=== PATIENT | male | born 1980 | race Caucasian/White ===

== ENCOUNTER 2019-06-24 12:24 | Emergency (ER) | payer MEDICAID, SELFPAY ==
[2019-06-24 12:26] VITALS: BP 125/75; PULSE 84; RESP 20; TEMP 36.6; O2SAT 97; BMI 29.5
--- NOTE | 2019-06-24 13:01 | HMH.EDEXTP ---
ED Disposition Clinical Impression: Carpal tunnel syndrome, bilateral Disposition: Home, Self-Care Condition on Discharge: Good Prescriptions: Tizanidine HCl [Zanaflex 4mg tablet] 4 mg PO TID 20 Days #60 tab Transmission Status: Pending to [facility] Referrals: Provider,Referral, [Primary Care Provider] - - Critical Care Critical Care Time: No Attestation: On 06/24/19, the high probability of a clinically significant, sudden or life threatening deterioration of the following system(s) required my full and direct attention, intervention and personal management. The time I documented below is in addition to time spent performing reported procedures but includes the following listed in this critical care notation. Medical Decision Making - Medical Records Medical records reviewed: Yes: I reviewed the patient's medical records. - Mekhi Inquiry Pt receiving controlled substance: No Vital Signs: 06/24/19 12:26 Temperature 97.8 F Temperature Source Oral Pulse Rate [Right] 84 Respiratory Rate 20 Blood Pressure [Right Arm] 125/75 Blood Pressure Mean [Right Arm] 91 02 Sat by Pulse Oximetry 97 - Lab Data Lab results reviewed: Yes: I reviewed the patient's lab results. Orders (Tests/Meds): ED MEDICATIONS Discontinued Medications Generic Name Dose Route Start Last Admin Trade Name Freq PRN Reason Stop Dose Admin Lidocaine HCl 20 ml 06/24/19 12:53 Lidocaine 1% 20ml Mdv IM 06/24/19 12:54 ONCE ONE Triamcinolone Acetonide 80 mg 06/24/19 12:53 Kenalog 40mg/Ml Vial IM 06/24/19 12:54 ONCE ONE Extremity Problem HPI - General Chief complaint: Extremity Problem,Nontraumatic Stated complaint: pain from elbows to fingers Time Seen by Provider: 06/24/19 13:01 Mode of Arrival: Ambulatory Source of Information: Patient Limitations: No Limitations Description of Symptoms (Recalled from ER Triage Doc. by RN): C/O numbness, tingling and pain in both arms starting from his elbows to his fingers for 2 days. - History of Present Illness HPI Narrative: 38-year-old male presents the ED complaining of bilateral hand pain. He states that at night its its worse and he has numbness and tingling in his thumb first finger and third finger. He states this is been going on for 3 days but does state that it is happened in the past over the last couple years. 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 Presently he is in no pain but he just feels constant numbness in both hands. - Related Data Previous Rx's Medication Instructions Recorded Brompheniramine/Pseudoephed/Dm 10 ml PO QID PRN #240 ml 10/05/17 [Bromfed DM Cough Syrup 5mL] Tizanidine HCl [Zanaflex 4mg 4 mg PO TID 20 Days #60 tab 06/24/19 tablet] Allergies Allergy/AdvReac Type Severity Reaction Status Date / Time cefaclor [From CECLOR] Allergy Unknown Verified 10/05/17 19:03 Penicillins [PENICILLINS] Allergy Unknown Verified 10/05/17 19:03 sumatriptan [From IMITREX] Allergy Unknown Verified 10/05/17 19:03 [facility] History - Hepatitis A Screen Drug use history?: No High risk sexual behaviors?: No History of sexually transmitted infection?: No Currently employed?: No Childcare worker?: No Do you have indoor plumbing?: Yes Do you have electricity?: Yes Attestation statement:: This patient has been screened for Hepatitis A risk factors. I have reviewed the patient's past medical history: Yes Medical History: Denies:: Cancer, Diabetes Mellitus Type 1, Diabetes Mellitus Type 2, Hypertension, MRSA Other Surgeries: Yes: Hernia Repair Amputation: No Fractures: No - Social History Smoking Status: Current every day smoker Tobacco Type: cigarettes # Packs/Day (cigarettes): 1 Alcohol Intake: never Occupational Status: unemployed ROS Obtained: Yes All systems reviewed & no additional complaints - Constitutional Constitutional: Reports system reviewed and no additional compl
[2019-06-24 13:33] VITALS: BP 125/75; PULSE 84; RESP 20; TEMP 36.6; O2SAT 97
== END 2019-06-24 13:34 | disposition home or self-care (01) ==
PROVIDERS: Emergency Provider Family Medicine
DX: G56.03 Carpal tunnel syndrome, bilateral upper limbs (principal); Z88.0 Allergy status to penicillin; F17.210 Nicotine dependence, cigarettes, uncomplicated
CPT/HCPCS: 64450; 96372; 99281

== ENCOUNTER 2019-11-30 09:53 | Emergency (ER) | payer MEDICAID, SELFPAY ==
[2019-11-30 10:07] VITALS: BP 147/91; PULSE 87; RESP 19; TEMP 36.9; O2SAT 98; BMI 28.2
--- NOTE | 2019-11-30 10:22 | HMH.EDUTC ---
[facility] [place] Clinical Impression: Sinusitis Qualifiers: Sinusitis location: unspecified location Chronicity: unspecified Qualified Code(s): J32.9 - Chronic sinusitis, unspecified Disposition: Home, Self-Care Condition on Discharge: Good Instructions: Sinusitis, Sinus Headache, DI for Sinusitis Additional Instructions: *Monitor Temp, Over the counter Motrin or Tylenol as directed/as needed Tylenol every 4 hours and Motrin every 6 hours (as long as your family doctor has told you that you can take it) for fever or pain. and straight to ER if unable to lower temp less than 101.0 after medication given *Warm salt water gargles may help to soothe the throat *Throat Lozenges *Warm fluids like tea with honey may help to soothe the throat *Sleep elevated *Humidifier/Vaporizer *Flonase 2 sprays in each nostril daily but be aware that it may take 2-3 days before you notice improvement Follow up IMMEDIATELY for new or worsening symptoms or no Noticeable improvement over the next 48-72 hours. 911 for difficulty breathing or swallowing You was tested for today for COVID19 your test result should be back later this evening, you may call back later this evening to see if your test results are back and the result You was given a handout with instructions for Self Quarantine and Self isolation for while you wait on test results and what to do if they are positive Prescriptions: Fluticasone Propionate [Flonase 50mcg nasal spray 16gm] 1 spr NS DAILY #1 bottle Transmission Status: Pending to [facility] methylPREDNISolone [Medrol 4mg tab] 4 mg PO DIRECTED #21 tab Transmission Status: Pending to [facility] Azithromycin [Z-Og 250mg Tab] 250 mg PO DIRECTED #6 tab Transmission Status: Pending to [facility] Referrals: Sofie Diaz [Primary Care Provider] - Forms: Work/School Release Time of Disposition: 10:28 Medical Decision Making - Mekhi Inquiry Pt receiving controlled substance: No Mekhi was queried for this patient: No Vital Signs: 11/30/19 10:07 Temperature 98.4 F Temperature Source Oral Pulse Rate [Radial] 87 Respiratory Rate 19 Blood Pressure [Right Arm] 147/91 H Blood Pressure Mean [Right Arm] 109 Blood Pressure Source [Right Arm] Automatic Cuff Blood Pressure Position [Right Arm] Sitting 02 Sat by Pulse Oximetry 98 Oxygen Delivery Method Room Air [facility] [place] - General Stated complaint: head stopped up ,cough,headache,weakness Time Seen by Provider: 11/30/19 10:22 Mode of Arrival: Ambulatory Source of Information: Patient Limitations: No Limitations Description of Symptoms (Recalled from Triage Doc. by RN): cough, congestion, headache x 2 days HEENT Symptoms (Recalled from RN notes): Yes Resp Symptoms (Recalled from RN notes): No Skin Symptoms (Recalled from RN notes): No MS Symptoms (Recalled from RN notes): No Functional Status (Recalled from RN notes): wnl - History of Present Illness Provider Complaint: Patient states that he has been having sinus pain and pressure for over a week States that he feels the pressure behind his eyes and in his teeth States that it has continued to get worse over the last couple of days and now his nose is completely stopped up - Related Data Previous Rx's Medication Instructions Recorded Brompheniramine/Pseudoephed/Dm 10 ml PO QID PRN #240 ml 10/05/17 [Bromfed DM Cough Syrup 5mL] Tizanidine HCl [Zanaflex 4mg 4 mg PO TID 20 Days #60 tab 06/24/19 tablet] Azithromycin [Z-Og 250mg Tab] 250 mg PO DIRECTED #6 tab 11/30/19 Fluticasone Propionate [Flonase 1 spr NS DAILY #1 bottle 11/30/19 50mcg nasal spray 16gm] methylPREDNISolone [Medrol 4mg 4 mg PO DIRECTED #21 tab 11/30/19 tab] Allergies Allergy/AdvReac Type Severity Reaction Status Date / Time cefaclor [From CECLOR] Allergy Unknown Verified 10/05/17 19:03 Penicillins [PENICILLINS] Allergy Unknown Verified 10/05/17 19:03 sumatriptan [From IMITREX]
[2019-11-30 10:45] VITALS: BP 147/91; PULSE 87; RESP 19; TEMP 36.9; O2SAT 98
== END 2019-11-30 10:46 | disposition home or self-care (01) ==
PROVIDERS: Emergency Provider Nurse Practitioner; PCP Family Medicine
DX: J32.9 Chronic sinusitis, unspecified (principal); Z20.828 Contact with and (suspected) exposure to other viral communicable diseases; F17.210 Nicotine dependence, cigarettes, uncomplicated; Z88.0 Allergy status to penicillin
CPT/HCPCS: 99201; U0003

== ENCOUNTER 2020-08-10 22:22 | Emergency (ER) | payer SELFPAY ==
[2020-08-10 22:36] VITALS: BP 154/71; PULSE 85; RESP 17; TEMP 36.8; O2SAT 98; BMI 25.8
--- NOTE | 2020-08-10 22:52 | HMH.EDMCLR ---
ED Disposition Clinical Impression: Medical clearance for incarceration Disposition: Home, Self-Care Condition on Discharge: Good Instructions: DI for Alcohol Use Disorder Additional Instructions: see pcp for follow up Referrals: Sofie Diaz [Primary Care Provider] - - Critical Care Critical Care Time: No Attestation: On 08/10/20, the high probability of a clinically significant, sudden or life threatening deterioration of the following system(s) required my full and direct attention, intervention and personal management. The time I documented below is in addition to time spent performing reported procedures but includes the following listed in this critical care notation. Medical Decision Making - Medical Records Medical records reviewed: Yes: I reviewed the patient's medical records. - Mekhi Inquiry Pt receiving controlled substance: No Vital Signs: 08/10/20 22:36 Temperature 98.2 F Temperature Source Oral Pulse Rate [Right Brachial] 85 Respiratory Rate 17 Blood Pressure [Right Arm] 154/71 H Blood Pressure Mean [Right Arm] 98 Blood Pressure Source [Right Arm] Automatic Cuff Blood Pressure Position [Right Arm] Sitting 02 Sat by Pulse Oximetry 98 Oxygen Delivery Method Room Air - Lab Data Lab results reviewed: Yes: I reviewed the patient's lab results. Medical Clearance HPI - General Chief complaint: Medical Clearance Stated complaint: medical clearance Time Seen by Provider: 08/10/20 22:52 Mode of Arrival: Family Vehicle Source of Information: Patient, Medical Record Description of Symptoms (Recalled from ER Triage Doc. by RN): PATIENT PRESENTED BY PD FOR MEDICAL CLEARANCE FOR DUI. REQUESTED LEGAL LAB DRAW. - History of Present Illness HPI Narrative: pt with possible intox brought in by lyudmila camacho MD complaint: medical clearance requested Onset (ago): hour(s) Reason for Medical Clearance: intoxication Place: other (outdoors ) Alleged Intoxication: Yes Compliant with Home Medications: No Traumatic Symptoms: denies traumatic injury Associated Symptoms: denies other symptoms Treatments Prior to Arrival: none Home medications: Previous Rx's Medication Instructions Recorded Brompheniramine/Pseudoephed/Dm 10 ml PO QID PRN #240 ml 10/05/17 [Bromfed DM Cough Syrup 5mL] Tizanidine HCl [Zanaflex 4mg 4 mg PO TID 20 Days #60 tab 06/24/19 tablet] Azithromycin [Z-Og 250mg Tab] 250 mg PO DIRECTED #6 tab 11/30/19 Fluticasone Propionate [Flonase 1 spr NS DAILY #1 bottle 11/30/19 50mcg nasal spray 16gm] methylPREDNISolone [Medrol 4mg 4 mg PO DIRECTED #21 tab 11/30/19 tab] Allergies/Adverse reactions: Allergies Allergy/AdvReac Type Severity Reaction Status Date / Time cefaclor [From CECLOR] Allergy Unknown Verified 10/05/17 19:03 Penicillins [PENICILLINS] Allergy Unknown Verified 10/05/17 19:03 sumatriptan [From IMITREX] Allergy Unknown Verified 10/05/17 19:03 [facility] History - Hepatitis A Screen Drug use history?: No High risk sexual behaviors?: No History of sexually transmitted infection?: No Currently employed?: No Childcare worker?: No Do you have indoor plumbing?: Yes Do you have electricity?: Yes Attestation statement:: This patient has been screened for Hepatitis A risk factors. I have reviewed the patient's past medical history: Yes Medical History: Denies:: Cancer, Diabetes Mellitus Type 1, Diabetes Mellitus Type 2, Hypertension, MRSA Other Surgeries: Yes: Hernia Repair Amputation: No Fractures: No - Social History Smoking Status: Current some day smoker Tobacco Type: cigarettes # Packs/Day (cigarettes): 1 Alcohol Intake: never Occupational Status: other ROS Obtained: Yes All systems reviewed & no additional complaints - Constitutional Constitutional: Denies fever(s) - Eyes Eyes: Denies change in vision - ENT Ears, Nose, Mouth, and Throat: Denies sore throat - Cardiovascular Cardiovascular: Denies chest pain - Respirat
[2020-08-10 23:12] VITALS: BP 124/70; PULSE 73; RESP 17; TEMP 36.8; O2SAT 98
== END 2020-08-10 23:16 | disposition home or self-care (01) ==
PROVIDERS: Emergency Provider Emergency Medicine; PCP Family Medicine
DX: F10.10 Alcohol abuse, uncomplicated (principal)
CPT/HCPCS: 99281; 99282

== ENCOUNTER 2024-08-23 16:09 | Emergency (ER) | payer OTHER, SELFPAY ==
--- OUTSIDE RECORDS SUMMARY | 2024-06-27 13:45 | XMS_ITS | Encounter Summary ---
Author Organization [facility] Address [address] [place] [address] Care Team Providers Care Liturgical Music Director Name Role Phone Kyra Bolton Primary Care Provider [phone] Reason for Visit * Reason Comments Abdominal Pain Nausea/Vomiting/Diarrhea Encounter Details Date Type Department Care Team (Late st Contact Info) Description 06/27/2024 1:45 PM EDT - 06/27/2024 3:51 PM EDT Emergency [facility] Emergency Department [address] [place] [id number] Eliazar Lowery, [employer] P[employer] HELPER [address] [place] [address] [place] [address] Gastroenteritis (Primary Dx); Cannabis hyperemesis syndrome concurrent with and due to cannabis abuse Discharge Disposition: Home or Self Care Social History Tobacco Use Types Packs/Day Years Used Date Smoking Tobacco: Every Day Cigarettes 1 10 Smokeless Tobacco: Never Comments:VAPE Alcohol Use Standard Drinks/Week Comments Never 0 (1 standard drink = 0.6 oz pur e alcohol) Hunger Vital Sign Answer Date Recorded Within the past 12 months, y ou worried that your food would run out before you got the money to buy more. Never true 06/26/19 24 Within the past 12 months, t he food you bought just didn't last and you didn't have money to get more. Never true 06/26/2023 PRAPARE - Transportation Answer Date Re corded In the past 12 months, has l ack of transportation kept you from medical appointments or from getting medications? No 06/09 In the past 12 months, has l ack of transportation kept you from meetings, work, or from getting things needed for daily living? No 06/26/2023 Housing Stability Vital Sign Answer Con e Recorded In the last 12 months, was t here a time when you were not able to pay the mortgage or rent on time? No 06/26/2023 In the last 12 months, how many places have you lived? 1 06/26/2023 In the last 12 months, was t here a time when you did not have a steady place to sleep or slept in a detention (including now)? No 06/26/2023 Sex and Gender Information Value Date Recorded Sex Assigned at Not on file Legal Sex Male 11:02 AM EDT Gender Identity Not on file Sexual Orientation Not on file documented as of this encounter Last Filed Vital Signs Vital Sign Reading Time Taken Comments Blood Pressure 146/103 06/27/2024 1:41 PM EDT Pulse 88 06/27/2024 1:41 PM EDT Temperature 36.6 C (97.8 F) 06/27/2024 1:41 PM EDT Respiratory Rate 24 06/27/2024 1:41 PM EDT Oxygen Saturation 95% 06/27/2024 1:41 PM EDT Inhaled Oxygen Concentration - - Weight 88.5 kg (195 lb) 06/27/2024 1:41 PM EDT Height 175.3 cm (5' 9 ) 06/27/2024 1:41 PM EDT Body Mass Index 28.8 06/27/2024 1:41 PM EDT documented in this encounter Functional Status * Are You Deaf or do You Have Serious Difficulty Hearing? Answer Date of Assessment Author No 06/22/2023 10:24 PM EDT Mita Cho RN * Patient's Vision Adequate to Safely Complete Daily Activities Answer Date of Assessment Author Yes 06/22/2023 10:24 PM EDT Mita Cho RN * Do You Have Serious Difficulty Walking or Climbing Stairs? Answer Date of Assessment Author No 06/22/2023 10:24 PM EDT Mita Cho RN * Do You Have Difficulty Dressing or Bathing? Answer Date of Assessment Author No 06/22/2023 10:24 PM EDT Mita Cho RN * Because of a Physical, Mental, or Emotional Condition, Do You Have Serious Difficulty Concentrating, Remembering or Making a Decision? Answer Date of Assessment Author No 06/22/2023 10:24 PM EDT Mita Cho RN documented as of this encounter Mental Status * Because of a Physical, Mental or Emotional Problem, Do You Have Difficulty Doing Errands Alone Suchas Visiting a Doctor's Office or Shopping? Answer Entry Date Author No 06/22/2023 10:24 PM EDT Mita Cho RN documented in this encounter Discharge Instructions * Discharge Instructions* Eliazar Lowery APRN - 06/27/2024 3:41 PM EDT Discharge disposition: this patient is discharged home. All questions were answered. For any problems stemming from this visit the patient can return for further advice and counseling. Patient can follow up with primary care provider as needed. Recommend that you stop using marijuana in all forms and quantities. Take Bentyl as prescribed, Zofran as previously prescribed on 06/13/2024 documented in this encounter Medications at Time of Discharge albuterol HFA 108 (90 Base) MCG/ACT inhaler Inhale 2 puffs into the lungs every 6 (six) hours as needed for Wheezing. busPIRone (BUSPAR) 15 MG tablet Take 15 mg by mouth 3 (three) times daily. CBD OIL Take by mouth daily. dicyclomine (BENTYL) 20 MG tablet Take 1 tablet by mouth every 6 (six) hours. 12 tablet 5 dicyclomine (BENTYL) 20 MG tablet Take 1 tablet by mouth every 6 (six) hours. 12 tablet 5 dicyclomine (BENTYL) 20 MG tablet Take 1 tablet by mouth every 6 (six) hours. 15 tablet 4 escitalopram (LEXAPRO) 10 MG tablet Take 20 mg by mouth daily. HYDROcodone-acetami nophen (NORCO) 5-325 MG per tablet Take 1 tablet by mouth every 6 (six) hours as needed for Pain. Max Daily Amount: 4 tablets 12 tablet 5 mirtazapine (REMERON) 15 MG tablet Take 15 mg by mouth nightly. 1 nitrofurantoin, macrocrystal-monohy drate, (MACROBID) 100 MG capsule Take 1 capsule by mouth 2 (two) times daily. 10 capsule 06/25/2023 12:12 PM EDT 4 ondansetron (ZOFRAN-ODT) 4 MG disintegrating tablet Take 1 tablet by mouth every 8 (eight) hours as needed for Nausea. 20 tablet 5 phenazopyridine (PYRIDIUM) 200 MG tablet Take 1 tablet by mouth 3 (three) times daily as needed for Pain. 21 tablet 1 06/25/2023 12:12 PM EDT 4 polyethylene glycol (GLYCOLAX) 17 GM/SCOOP powder Mix 17 grams (one capful) in 4 ounces of liquid and take by mouth daily. 850 g 3 06/25/2023 12:12 PM EDT 4 promethazine (PHENERGAN) 12.[address] 1 suppository rectally every 6 (six) hours as needed for Nausea. 12 suppository 5 traZODone (DESYREL) 50 MG tablet Take 50 mg by mouth daily. 4 UNABLE TO FIND Take by mouth daily Med Name: DELTA 8 OIL FROM [employer] PER PATIENT . documented as of this encounter ED Notes * Curly Garcia MD - 06/27/2024 2:36 PM EDT History Chief Complaint Patient presents with Abdominal Pain Nausea/Vomiting/Diarrhea The patient is a 43-year-old male well-known to this department. He has been seen 6 times this yearin this department for intractable nausea vomiting and cramping. He has had upper GI scopes which showed gastritis and GI follow-up. Was here 06/13/2024 diagnosed with cannabis hyperemesis syndrome, saw PCP 06/21/2024, prescribed CBD oil and other workup was ordered including MRI. He has not filled the CBD oil and continues to use marijuana although he reports he has cut down a lot and now I onlysmoke 1 bong a day . He denies other drug use or alcohol use. Started with increase abdominal discomfort, cramping, nausea, vomiting, diarrhea for the last few days and denies any recent Befol exposure or sick contacts or antibiotics. Past Medical History: Diagnosis Date Acute medial meniscus tear LEFT KNEE PER PATIENT HEALED WITHOUT SURGERY Anxiety Depression Tear of lateral collateral ligament of knee, left, initial encounter Past Surgical History: Procedure Laterality Date INGUINAL HERNIA REPAIR Bilateral NECK MASS EXCISION Left No family history on file. Social History Socioeconomic History Marital status: Spouse name: Not on file Number of children: Not on file Years of education: Not on file Highest education level: Not on file Occupational History Not on file Tobacco Use Smoking status: Every Day Current packs/day: 1.00 Average packs/day: 1 pack/day for 10.0 years (10.0 ttl pk-yrs) Types: Cigarettes Smokeless tobacco: Never Tobacco comments: VAPE Vaping Use Vaping status: Every Day Substance and Sexual Activity Alcohol use: Never Drug use: Yes Types: Other-see comments Comment: USES HEMP OIL AND CBD FOR ANXIETY Sexual activity: Yes Other Topics Concern Not on file Social History Narrative Not on file Social Drivers of Health Financial Resource Strain: Not on file Food Insecurity: No Food Insecurity (06/26/2023) Hunger Vital Sign Worried About Running Out of Food in the Last Year: Never true Ran Out of Food in the Last Year: Never true Transportation Needs: No Transportation Needs (06/26/2023) PRAPARE - Transportation Lack of Transportation (Medical): No Lack of Transportation (Non-Medical): No Physical Activity: Not on file Stress: Not on file Social Connections: Unknown (11/17/2022) Received from [facility] Family and Community Support Lonely or Isolated: Not on file Help with Day-to-Day Activities: Not on file Intimate Partner Violence: Not At Risk (01/28/2024) Received from [facility] Abuse Screen Feels Unsafe at Home or Work/School: no Feels Threatened by Someone: no Does Anyone Try to Keep You From Having Contact with Others or Doing Things Outside Your Home?: no Physical Signs of Abuse Present: no Housing Stability: Low Risk (06/26/2023) Housing Stability Vital Sign Unable to Pay for Housing in the Last Year: No Number of Places Lived in the Last Year: 1 Unstable Housing in the Last Year: No Review of Systems All other systems reviewed and are negative. Physical Exam BP (!) 146/103 (BP Location: Left arm, Orthostatic Position: Sitting) Pulse 88 Temp 97.8 ??F (36.6 ??C) (Tympanic) Resp (!) 24 Ht 5' 9 (1.753 m) Wt 88.5 kg (195 lb) SpO2 95% BMI 28.80 kg/m?? Physical Exam Vitals and nursing note reviewed. Constitutional: General: He is not in acute distress. Appearance: Normal appearance. He is ill-appearing (Mildly) and diaphoretic (Mildly). Eyes: Extraocular Movements: Extraocular movements intact. Pupils: Pupils are equal, round, and reactive to light. Cardiovascular: Rate and Rhythm: Normal rate and regular rhythm. Pulses: Normal pulses. Heart sounds: Normal heart sounds. Abdominal: General: Abdomen is flat. Bowel sounds are normal. There is no distension. Palpations: Abdomen is soft. Tenderness: There is no abdominal tenderness. There is no guarding. Skin: General: Skin is warm. Neurological: Mental Status: He is alert. ED Course Procedures MDM Number of Diagnoses or Management Options Cannabis hyperemesis syndrome concurrent with and due to cannabis abuse Gastroenteritis Diagnosis management comments: -MDM: Based on presentation, PMX, history of present illness and exam the following differential diagnoses were considered: -DDX: Cannabis hyperemesis, colitis, diverticulitis, gastroenteritis, dehydration -PLAN: Patient is presenting with symptoms that are very consistent with his previous episodes of cannabis hyperemesis said that today he actually appears to be better than usual. Will check basic labs give droperidol, Toradol, monitor. His abdomen is grossly nontender and I do not suspect acute inflammatory infectious process at this time Amount and/or Complexity of Data Reviewed Clinical lab tests: reviewed Risk of Complications, Morbidity, and/or Mortality Presenting problems: moderate Diagnostic procedures: low Management options: low General comments: During emergency department stay it was determined that patient can be safely discharged home and followed up or treated as an outpatient. The following considerations contributed to my medical decisions: Reviewed and independently interpreted: - Patient's chief complaint and available and pertinent past medical/surgical history, past social history, medications, and allergies. - Nursing documentation. - Patient's vital signs. - All labs and diagnostics during this ED stay, if applicable - Pertinent past medical records available in [facility] and history from the patient/family. Chronic illnesses impacting care as noted in HPI were also considered, if applicable. Consideration given to social determinants of care that were relevant to patient's disposition. Shared decision making was implemented in the POC. I ordered and reviewed all medications if given. I spent 5 minutes or more at the bedside prior to discharge to update patient on all results, provide education, and explain my decision making. Questions were answered to the best of my ability. Time was allotted to answer all questions, with focus placed on follow-up after discharge and return toED precautions. Patient Progress Patient progress: improved Diagnosis None ED Course as of 06/27/24 1542 ThuJune 27, 2024 1445 Comprehensive Metabolic Panel(CMP)(!): Sodium 141 Potassium 3.9 Chloride 108(!) CO2 23 Anion Gap 10 Glucose 110(!) BUN 10 Creatinine 0.70(!) BUN/Creat Ratio 14.3 Estimated GFR (Cr) 119 Total Protein 7.5 Albumin 4.4 Globulin 3.1 Albumin/Globulin Ratio 1.4 Calcium 9.4 Bilirubin-Total 1.0 AST/SGOT 19 ALT/SGPT 25 Alkaline Phosphatase 88 [GB] 1445 .CBC w/Diff(!): WBC 18.74(!) RBC 4.89 Hemoglobin 15.4 Hematocrit 43.4 MCV 88.8 MCH 31.5 MCHC 35.5 Red Cell Distribution Width-CV 12.7 Platelet Count 330 MPV 9.4 NEUT% 90.8(!) LYM% 5.0(!) Lasalle% 3.5 EOS% 0.2 BASO% 0.1 IG% 0.4 NRBC% 0.0 Neutrophil Abs 17.02(!) Absolute Lymphocyte Count 0.93 Monocyte Absolute 0.65 EOS# 0.04 Baso# 0.02 Immature Granulocyte Abs 0.08 [GB] 1445 Individual labs/testing as independently reviewed and interpreted by myself: There is leukocytosis with left shift, this could be secondary to infectious/inflammatory process or secondary to hisintractable nausea and vomiting. CMP shows no acute dehydration or electrolyte disturbance [GB] 1537 I reexamined the patient he appears much improved. Not reporting acute abdominal pain. No longer moaning. Vital signs remained stable during his ER course and labs are grossly noncontributory except for leukocytosis which I do not believe is secondary to sepsis or significant intra-abdominal process, but rather to mobilization from protracted vomiting. Patient is safe for discharge home with nausea and cramping control and follow- up with primary careprovider. I again encouraged him to stop using marijuana in all forms and quantities and to return if he develop fevers [GB] ED Course User Index [GB] Eliazar Lowery APRN Provider Note Signed by: Eliazar Lowery APRN 06/27/24 9465 CLOTH WORKER note thoroughly reviewed and agree with diagnosis, treatment, and disposition. Curly Garcia MD 06/27/24 [id number] * Emelyn Julian RN - 06/27/2024 1:47 PM EDT Patient arrived via private vehicle from home with reports of severe abdominal pain and NVD. Pt states this has been ongoing for a month. He has had a CT and upper GI done that just showed inflammation. He states he is supposed to follow up with his GI doctor again soon for further testing but the pain and other symptoms were out of control today. Pt states last time he was in the ER he was told it could be hyperemesis from smoking pot so he states he has pretty much completely quit smoking documented in this encounter Plan of Treatment Not on file documented as of this encounter Procedures Procedure Name Priority Date/Time Associated Diagnosis Comments CBC W/DIFF STAT 06/27/2024 2:06 PM EDT COMPREHENSIVE METABOLIC PANEL (CMP) STAT 06/27/2024 2:06 PM EDT documented in this encounter Results * (ABNORMAL) Comprehensive Metabolic Panel(CMP) (06/27/2024 2:06 PM EDT) Sodium 141 136 - 145 mmol/L 06/27/2024 2:31 PM EDT [facility] Comment:Excess protein and/o r lipids can falsely decrease sodium levels (pseudo hyponatremia). Potassium 3.9 3.5 - 5.1 mmol/L 06/27/2024 2:31 PM T [facility] Comment:Falsely elevated pot assium can occur in patients with high WBC or platelet counts. Chloride 108(H) 98 - 107 mmol/L 06/27/2024 2:31 PM T [facility] Comment:Falsely elevated chl oride levels can be seen in patients taking bromide containing medications. Carbon Dioxide 23 22 - 29 mmol/L 06/27/2024 2:31 PM T [facility] Anion Gap 10 5 - 13 mmol/L 06/27/2024 2:31 PM T [facility] Comment:Calculation: Na - (C l + CO2) Glucose, Random 110(H) 71 - 99 mg/dL 06/27/2024 2:31 PM [facility] Blood Urea Nitrogen (BUN) 10 9 - 21 mg/dL 06/27/2024 2:31 PM [facility] Creatinine, Blood 0.70(L) 0.73 - 1.18 mg/dL 06/27/2024 2:31 PM [facility] BUN/Creatinine Ratio 14.3 RATIO 06/27/2024 2:31 PM [facility] Estimated GFR (Cr) 119 >60 mL/min/1.7 3m2 06/27/2024 2:31 PM [facility] Comment:eGFR calculated base d on IDMS traceable, enzymatic creatinine method using the CKD-EPI 2020 equation. Total Protein 7.5 6.4 - 8.2 g/dL 06/27/2024 2:31 PM T [facility] Albumin 4.4 3.5 - 5.2 g/dL 06/27/2024 2:31 PM [facility] Globulin 3.1 1.5 - 4.5 g/dL 06/27/2024 2:31 PM [facility] Albumin/Globulin Ratio 1.4 1.1 - 2.5 RATIO 06/27/2024 2:31 PM [facility] Calcium 9.4 8.4 - 10.2 mg/dL 06/27/2024 2:31 PM EDT [facility] Total Bilirubin 1.0 0.2 - 1.2 mg/dL 06/27/2024 2:31 PM EDT [facility] AST/SGOT 19 5 - 34 U/L 06/27/2024 2:31 PM EDT [facility] ALT/SGPT 25 0 - 55 U/L 06/27/2024 2:31 PM EDT [facility] Alkaline Phosphatase 88 40 - 150 U/L 06/27/2024 2:31 PM EDT [facility] Blood VENOUS BLOOD SPECIMEN / Unknown Venipuncture / Unknown 06/27/2024 2:06 PM EDT 06/27/2024 2:09 PM EDT us Eliazar Lowery [employer]ER HELPER LAB BLOOD ORDERABLES María ying Result Performing Organization Address City/State/[facility] Co de Phone Number [facility] [address] [phone] * (ABNORMAL) .CBC w/Diff (06/27/2024 2:06 PM EDT) White Blood Cells 18.74(H) 4.50 - 11.00 10*3/uL 06/27/2024 2:11 PM EDT [facility] Red Blood Cells 4.89 4.50 - 5.90 10*6/uL 06/27/2024 2:11 PM EDT [facility] Hemoglobin 15.4 13.5 - 17.5 g/dL 06/27/2024 2:11 PM EDT [facility] Hematocrit 43.4 41.0 - 53.0 % 06/27/2024 2:11 PM EDT [facility] Mean Corpuscular Volume 88.8 80.0 - 100.0 fL 06/27/2024 2:11 PM EDT [facility] Mean Corpuscular Hemoglobin 31.5 26.0 - 34.0 pg 06/27/2024 2:11 PM EDT [facility] Mean Corpuscular Hemoglobin Concentration 35.5 31.0 - 37.0 g/dL 06/27/2024 2:11 PM EDT [facility] % Red Blood Cell Distribution Width 12.7 12.0 - 16.8 % 06/27/2024 2:11 PM EDT [facility] Platelet Count 330 140 - 440 10*3/uL 06/27/2024 2:11 PM EDT [facility] Mean Platelet Volume 9.4 8.4 - 12.4 fL 06/27/2024 2:11 PM EDT [facility] % Neutrophils 90.8(H) 45.0 - 80.0 % 06/27/2024 2:11 PM EDT [facility] % Lymphocytes 5.0(L) 15.0 - 50.0 % 06/27/2024 2:11 PM EDT [facility] % Monocytes 3.5 0.0 - 15.0 % 06/27/2024 2:11 PM EDT [facility] % Eosinophils 0.2 0.0 - 7.0 % 06/27/2024 2:11 PM EDT [facility] % Basophils 0.1 0.0 - 2.0 % 06/27/2024 2:11 PM EDT [facility] % Immature Granulocytes 0.4 0.0 - 1.0 % 06/27/2024 2:11 PM EDT [facility] % Nucleated RBCs 0.0 <=0 /100 WBCs 06/27/2024 2:11 PM EDT [facility] Absolute Neutrophil Count 17.02(H) 2.00 - 8.80 10*3/uL 06/27/2024 2:11 PM EDT [facility] Absolute Lymphocytes 0.93 0.70 - 5.50 10*3/uL 06/27/2024 2:11 PM EDT [facility] Absolute Monocytes 0.65 0.00 - 1.70 10*3/uL 06/27/2024 2:11 PM EDT [facility] Absolute Eosinophils 0.04 0.00 - 0.80 10*3/uL 06/27/2024 2:11 PM EDT [facility] Absolute Basophils 0.02 0.00 - 0.20 10*3/uL 06/27/2024 2:11 PM EDT [facility] Absolute Immature Granulocytes 0.08 0.00 - 0.10 10*3/uL 06/27/2024 2:11 PM EDT [facility] Blood VENOUS BLOOD SPECIMEN / Unknown Venipuncture / Unknown 06/27/2024 2:06 PM EDT 06/27/2024 2:09 PM EDT us Eliazar Lowery APRN LAB BLOOD ORDERABLES María ying Result [facility] [address] [phone] documented in this encounter Visit Diagnoses Diagnosis Gastroenteritis- Primary Other and unspecified noninfectious gastroenteritis and colitis Cannabis hyperemesis syndrome concurrent with and due to cannabis abuse documented in this encounter Administered Medications Inactive Administered Medications - up to 3 most recent administrations Medication Order MAR Action Action Date Dose Rate Site droPERidol (INAPSINE) injection 1.25 mg 1.25 mg, Intravenous, Once, On Thu06/27/24 at 1445, For 1 dose, Administer Slow IV Push over 2 minutes., 2 mL, Administer over 2 Minutes, Routine Given 06/27/2024 2:59 PM EDT 1.25 mg ketorolac (TORADOL) injection 30 mg 30 mg, Intravenous, Once, On Thu06/27/24 at 1445, For 1 dose, 5 Day Auto Stop Per P&T., 1 mL, Routine Given 06/27/2024 2:59 PM EDT 30 mg sodium chloride 0.9 % bolus 1,000 mL 1,000 mL, Intravenous, at 999 mL/hr, Once, On Thu06/27/24 at 1400, For 1 dose, 1,000 mL, Administer over 60 Minutes, Routine New Bag 06/27/2024 2:06 PM EDT 1,000 mLs 999 mL /hr documented in this encounter Active and Recently Administered Medications Times are shown in EDT. Scheduled Medication Order 06/25/2024 06/26/202406/27/2024 droPERidol (INAPSINE) injection 1.25 mg (COMPLETED) 1.25 mg, Intravenous, Once, On Thu06/27/24 at 1445, For 1 dose, Administer Slow IV Push over 2 minutes., 2 mL, Administer over 2 Minutes, Routine 1459 (Given - Provid er: Reno Weaver, CANDY) ketorolac (TORADOL) injection 30 mg (COMPLETED) 30 mg, Intravenous, Once, On Thu06/27/24 at 1445, For 1 dose, 5 Day Auto Stop Per P&T., 1 mL, Routine 1459 (Given - Provid er: Reno Weaver RN) sodium chloride 0.9 % bolus 1,000 mL (COMPLETED) 1,000 mL, Intravenous, at 999 mL/hr, Once, On Thu06/27/24 at 1400, For 1 dose, 1,000 mL, Administer over 60 Minutes, Routine 1406 (New Bag - Prov ider: Reno Weaver RN)1542 (Stopped - Provider: Reno Weaver RN) documented in this encounter Care Teams Liturgical Music Director Relationship Specialty Start Date End Date Kyra Bolton [address] [facility] [address] [place] [address] PCP - General Internal Medicine 07/01/23 documented as of this encounter
--- OUTSIDE RECORDS SUMMARY | 2024-07-18 13:00 | XMS_ITS | Encounter Summary ---
[facility] Address [address] [place] [address] Care Team Providers Care Lyft Driver Name Role Phone Kyra Bolton MD Primary Care Provide r Reason for Visit * Reason Comments Abdominal Pain Nausea Vomiting GI Bleeding Encounter Details Date Type Department Care Team (Late st Contact Info) Description 07/18/2024 1:00 PM EDT Office Visit [facility] GASTROENTEROLOGY [address] [facility] [address] [place] [address] Antonia Marroquin, CORPORATE ADMINISTRATIVE ASSISTANT [address] [facility] [address] [place] [address] Left lower quadrant pain (Primary Dx); Encounter for screening colonoscopy Social History Tobacco Use Types Packs/Day Years Used Date Smoking Tobacco: Every Day Cigarettes 1 41.2 Started: 06/10/2003 Passive Smoke Exposure: Past Smokeless Tobacco: Never Alcohol Use Standard Drinks/Week Comments Never 0 (1 standard drink = 0.6 oz pur e alcohol) PHQ-2 Answer Date Recorded Retired PHQ-9: Brief Depression Severity Measure Score 7 11/05/2022 Abuse Screen Answer Date Recorded Feels Unsafe at Home or Work/School no 01/28/2024 Feels Threatened by Someone no 01/09 Does Anyone Try to Keep You From Having Contact with Others or Doing Things Outside Your Home? no 01/28/2024 Physical Signs of Abuse Present no 01/28/2024 PHQ-2 Answer Date Recorded Patient Health Questionnaire-2 Score 0 03/04/2024 Sex and Gender Information Value Date Recorded Sex Assigned at Male 07/18/2024 12:20 PM EDT Legal Sex Male 10:24 AM EDT Gender Identity Not on file Sexual Orientation Not on file documented as of this encounter Last Filed Vital Signs Vital Sign Reading Time Taken Comments Blood Pressure 120/80 07/18/2024 12:49 PM EDT Pulse - - Temperature - - Respiratory Rate - - Oxygen Saturation - - Inhaled Oxygen Concentration - - Weight 85.5 kg (188 lb 9.6 oz) 07/18/2024 12:49 PM EDT Height 175.3 cm (5' 9.02 ) 07/18/2024 12:49 PM E DT Body Mass Index 27.84 07/18/2024 12:49 PM EDT documented in this encounter Patient Instructions * Patient Instructions* Antonia Marroquin APRN - 07/18/2024 1:00 PM EDT Schedule colonoscopy, orders placed. Follow-up visit after colonoscopy to review findings and make additional recommendations if needed. For abdominal pain: Began applying gefb-nrg-hqxyted Capsaicin cream to upper abdomen 3-4 times daily to help with pain and nausea For nausea, bloating and fullness Ayde has been helpful for some patients. Gingerroot capsules can be purchased [id number]. Directions: Ayde root 500 mg (or 550 mg) capsules, take 1 to 2 capsules 3 times daily before meals, max 6 capsules per day. Start taking samples of voquezna 20 mg once daily with or without food Keep scheduled gastric emptying study To see if a slow gastric emptying is a cause to your GI symptoms: We recommend assessing a a Gastric Emptying Study The test itself will take approximately 4 hours To perform the test hospital staff will have you consume eggs with tracers and obtain imaging aftermeal ingestion and again at one, two, and four hours following ingestion of eggs documented in this encounter Progress Notes * Antonia Marroquin APRN - 07/18/2024 1:00 PM EDT Images from the original note were not included. Patient or patient client services representative verbalized consent for the use of Ambient Listening during the visit with Antonia Marroquin APRN for chart documentation. 07/18/2024 14:04 EDT Chief Complaint Patient presents with Abdominal Pain Nausea Vomiting GI Bleeding Patient is a 43 y.o. who presents to the office for Patient has a significant past medical history of GERD, nausea, vomiting with THC use, EOE, and history of esophageal stricture. He has had 5 ER visits since February for [facility], 01/28/2024 EGD LA grade a esophagitis Proximal and distal Path: No significant increase in eosinophils; negative for Nolen's esophagus Nonerosive gastritis Path: Negative for HP or IM Endoscopically normal duodenum Past Surgical History: Past Surgical History: Procedure Laterality Date ENDOSCOPY N/A 10/09/2021 Procedure: ESOPHAGOGASTRODUODENOSCOPY WITH ANESTHESIA; Surgeon: Will Blackburn MD; Location: [facility] OR; Service: Gastroenterology; Laterality: N/A; ESOPHAGOGASTRODUODENOSCOPY WITH ANESTHESIA FOOD BOLUS REMOVAL ENDOSCOPY N/A 01/28/2024 Procedure: ESOPHAGOGASTRODUODENOSCOPY WITH BIOPSY; Surgeon: David Olivarez MD; Location: [facility] OR; Service: Gastroenterology; Laterality: N/A; Gastritis; Esophagitis HERNIA REPAIR 1984 INGUINAL HERNIA REPAIR Bilateral KNEE ARTHROSCOPY Left 11/08/ MASS EXCISION Left NECK UPPER GASTROINTESTINAL ENDOSCOPY Social History: Social History Tobacco Use Smoking status: Every Day Current packs/day: 1.50 Average packs/day: 1 pack/day for 41.1 years (41.7 ttl pk-yrs) Types: Cigarettes Start date: 06/10/2003 Passive exposure: Past Smokeless tobacco: Never Substance Use Topics Alcohol use: Never Occasional THC use - decreased use by 80 % Family history: @BIMFAISTORY@ History of Present Illness The patient presents with persistent symptoms that have significantly impacted their daily life [facility]. Below is a detailed account of their complaints and relevant history. Nausea, Emesis, and Lower Abdominal Pain - Persistent nausea, emesis, and lower abdominal pain occurring daily for the past seven weeks. - Symptoms are consistently triggered post-defecation and characterized by nausea and lower abdominal colic. - Bowel movements are described as regular and soft-formed. - weight loss of approximately 40 pounds attributed to dietary modifications. - Episode of melena lasting three days approximately one month ago without recurrence. Denies usageof Pepto-Bismol at time of onset - Accompanied by anorexia and intermittent febrile episodes during periods of symptom exacerbation. - Duration of post-defecation pain has decreased to 1-2 hours, with partial symptomatic relief. Substance Use and Symptomatic Management - Self-administering Kratom extract (20 mg daily) for six months, reporting symptomatic alleviation. - History of substance use disorder and preference for natural remedies, including cannabis. - Cannabis usage reduced by approximately 80%, transitioning from concentrated cannabis oil via vaping to occasional smoking. - Persistent lower left quadrant pain occasionally exacerbated by preemptive Kratom use. - Symptomatic relief achieved through prone positioning and application of a heating pad. Medication and Treatment History - Previously prescribed pantoprazole, discontinued due to insurance-related issues. - Current medications include trazodone for sleep and escitalopram (Lexapro). - Patient has requested a lower gastrointestinal study due to bowel-related symptoms. Lifestyle and Dietary Changes - Maintains adequate hydration, consuming 6-8 bottles of water daily. - Eliminated sodas and energy drinks while significantly reducing caffeine intake. - Occasionally uses ayde-based preparations for symptomatic relief. Impact on Daily Life - Reports inability to work mornings, resulting in job loss. - Pain described as localized, constant, and exacerbated by deep inspiration. Supplemental information: The patient expresses concern regarding a potential diagnosis of Crohn's disease or ulcerative colitis. SOCIAL HISTORY - Occupation: Unemployed due to health issues - Diet: Hydrates with 6-8 bottles of water and juice daily, avoids carbonated drinks and high-caffeine beverages - Tobacco: Increased use, smokes 0.5-2 packs/day - Recreational Drugs: Reduced cannabis use by 80%, smokes sparingly FAMILY HISTORY - Mother: Nolen's esophagus - Negative for colon cancer, colon polyps, and inflammatory bowel disease Current/Previous treatment for GERD, nausea, vomiting Current: Pantoprazole 40 mg twice daily Zofran Previous: TCAs contraindicated due to interaction with lexapro and trazodone use Carafate Scopolamine Phenergan suppositories-ineffective Medications Current Outpatient Medications: CBD (cannabidiol) oral oil, Take by mouth Daily., Disp: , Rfl: escitalopram (LEXAPRO) 20 MG tablet, TAKE 1 TABLET BY MOUTH DAILY, Disp: 30 tablet, Rfl: 2 NON FORMULARY, Take by mouth Daily. Kratom Mitragynine PO, Disp: , Rfl: pantoprazole (PROTONIX) 40 MG EC tablet, Take 1 tablet by mouth 2 (Two) Times a Day., Disp: 180 tablet, Rfl: 3 Symbicort 160-4.5 MCG/ACT inhaler, Inhale 2 puffs 2 (Two) Times a Day., Disp: , Rfl: traZODone (DESYREL) 100 MG tablet, Take 1 tablet by mouth Every Night., Disp: 30 tablet, Rfl: 1 Ventolin HFA 108 (90 Base) MCG/ACT inhaler, INHALE 2 PUFFS BY MOUTH EVERY 4 HOURS NEEDED FOR WHEEZING, Disp: 90 g, Rfl: 0 ondansetron ODT (ZOFRAN-ODT) 4 MG disintegrating tablet, Take 1 tablet by mouth., Disp: , Rfl: Result Review : Common labs 12/22/2023 08:53 Common Labs Glucose 100 BUN 7 Creatinine 0.89 Sodium 139 Potassium 4.2 Chloride 103 Calcium 9.9 Albumin 4.5 Total Bilirubin 0.5 Alkaline Phosphatase 137 AST (SGOT) 15 ALT (SGPT) 28 WBC 11.08 Hemoglobin 16.2 Hematocrit 47.2 Platelets 375 Total Cholesterol 184 Triglycerides 242 HDL Cholesterol 37 LDL Cholesterol 105 Hemoglobin A1C 5.50 Office Visit with Kyra Bolton MD (06/21/2024) Office Visit with Antonia Marroquin APRN (12/24/2023) Upper GI Endoscopy (01/28/2024 15:07) Tissue Pathology Exam (01/28/2024 15:20) 09/2021 EGD: mild duodeniditis and gastritis; food bolus LA C esophagitis 05/2021 EGD: 3 cm hh, stenosis GE juct. Dilated 18-20 mm, mildly elevated eosinophils 19 / hpf GE meron, 15 / hpf distal CT Abdomen Pelvis With Contrast (05/14/2024 17:17) Hepatic steatosis with mild hepatomegaly NM gastric emptying (06/21/2024 14:24) - ordered awaiting completion Vital Signs: BP 120/80 (BP Location: Left arm, Patient Position: Sitting, Cuff Size: Adult) Ht 175.3 cm (69.02 ) Wt 85.5 kg (188 lb 9.6 oz) BMI 27.84 kg/m?? Body mass index is 27.84 kg/m??. Physical Exam Assessment and Plan Diagnoses and all orders for this visit: 1. Left lower quadrant pain (Primary) 2. Encounter for screening colonoscopy Assessment & Plan Nausea and vomiting: - Significant morning nausea and occasional vomiting post-bowel movement - Using Kratom, effective but non-FDA approved thus unable to provide guidance from my standpoint - Voquenza 20 mg daily samples provided at time of today's visit in hopes of alleviating any residual esophagitis/gastritis contributing to persistent nausea. - Gastric emptying study planned - Additionally, we reviewed impact of cannabis use on GI motility which I suspect is contributing to refractory nausea and infrequent vomiting. Ideally he would abstain from use and can take up to 3 months to see noticeable improvement in nausea and vomiting symptoms. -Continue Zofran every 8 hours and ayde root as needed due to promethazine ineffective in controlling nausea Left lower abdominal pain: - Localized to lower left quadrant, lasting 1-2 hours post-bowel movement - Relief with heating pads - Capsaicin cream recommended 3-4 times daily - Colonoscopy to rule out structural abnormalities including colitis, diverticular disease, or restricted mobility Weight loss: - ~40 lbs unintentional loss due to nausea and difficulty eating - I have encouraged him to consume smaller more frequent meals throughout the day that are low in fat to help ease digestion and movement through GI tract Follow-up: - After colonoscopy completion Patient is agreeable to the outlined above treatment plan. Verbalizes understanding and will contact office for any new or worsening concerns. All questions answered and support provided. Patient Instructions Schedule colonoscopy, orders placed. Follow-up visit after colonoscopy to review findings and make additional recommendations if needed. For abdominal pain: Began applying gtpi-ztr-xhyfmpv Capsaicin cream to upper abdomen 3-4 times daily to help with pain and nausea For nausea, bloating and fullness Ayde has been helpful for some patients. Gingerroot capsules can be purchased [id number]. Directions: Ayde root 500 mg (or 550 mg) capsules, take 1 to 2 capsules 3 times daily before meals, max 6 capsules per day. Start taking samples of voquezna 20 mg once daily with or without food Keep scheduled gastric emptying study To see if a slow gastric emptying is a cause to your GI symptoms: We recommend assessing a a Gastric Emptying Study The test itself will take approximately 4 hours To perform the test hospital staff will have you consume eggs with tracers and obtain imaging aftermeal ingestion and again at one, two, and four hours following ingestion of eggs EMR Dragon/Charge Poster Disclaimer: This document has been Dictated utilizing Dragon dictation. Antonia Marroquin, MSN, CORPORATE ADMINISTRATIVE ASSISTANT, TELEPHONE ORDER CLERK-C [facility] Gastroenterology [address] [place] [address] office [phone] fax documented in this encounter Plan of Treatment Upcoming Encounters Date Type Department Care Team (Late st Contact Info) Description 09/14/2024 9:40 AM EDT Lab [facility] PRIMARY CARE [address] [place] [address] 09/21/2024 2:45 PM EDT Office Visit [facility] PRIMARY CARE [address] [place] [address] Kyra Bolton MD [address] [place] [address] documented as of this encounter Visit Diagnoses Diagnosis Left lower quadrant pain- Primary Abdominal pain, left lower quadrant Encounter for screening colonoscopy documented in this encounter Care Teams Lyft Driver Relationship Specialty Start Date End Date Kyra Bolton MD [address] [place] [address] PCP - General Internal Medicine & Pediatrics 11/05/22 documented as of this encounter
--- OUTSIDE RECORDS SUMMARY | 2024-07-21 07:19 | XMS_ITS | Encounter Summary ---
[facility] [address] [place] [address] Care Team Providers Care Unit Control Clerk Name Role Phone Kyra Bolton MD Primary Care Provide r Reason for Visit * Auth/Cert Specialty Diagnoses / Procedures Referred By Contac t Referred To Contact Diagnoses Left lower quadrant abdominal pain Encounter for screening colonoscopy Left lower quadrant abdominal pain [R10.32] Encounter for screening colonoscopy [Z12.11] Procedures COLONOSCOPY Referral ID Status Reason Start Date Expiration Date Visits Re quested Visits Authorized [id number] 1 1 Encounter Details Date Type Department Care Team (Latest Contact Info) Description 07/21/2024 7:19 AM EDT - 07/21/2024 10:21 AM EDT Hospital Encounter [facility] [address] [place] [address] David Olivarez MD [address] [facility] [address] [place] [address] Left lower quadrant abdominal pain; [...] 7:31 AM EDT Aleksandra Shannon RN * [place] Suicide Severity Rating Scale (Screener/Recent Self-Report) Question Answer Date of Assessment Author 6. Suicidal Behavior (Lifetime) No 7:31 AM EDT Becki Shannon RN documented as of this encounter Discharge Instructions * Attachments The following attachments cannot be sent through Care Everywhere. * Monitored Anesthesia Care Care After (Romanian) * Colonoscopy Adult Care After [id number] (Romanian) * Colon Polyps (Romanian) * Hemorrhoids Wqcc-xn-Cath (Romanian) documented in this encounter Medications at Time [...] 30 tablet 1 07/18/2024 Allergies: Banana, Melon, [place], Sumatriptan, Ciclopirox, Penicillins, Cefaclor, and Prochlorperazine REVIEW [...] Info) Description 09/14/2024 9:40 AM EDT Lab [facility] [address] [place] [id number] 09/21/2024 2:45 PM EDT Office Visit [facility] [address] [place] [address] Kyra Bolton MD [address] [place] [address] documented as of this encounter Procedures Procedure Name Priority Date/Time Associated Diagnosis Comments TISSUE PATHOLOGY EXAM Routine 07/21/2024 9:27 AM EDT Left lower quadrant abdominal pain Encounter for screening colonoscopy [place] COLONOSCOPY W/BIOPSY SINGLE/MULTIPLE 07/21/2024 9:10 AM EDT Left lower quadrant abdominal pain Encounter for screening colonoscopy COLONOSCOPY 07/21/2024 9:07 AM EDT SCANNED - TELEMETRY 07/21/2024 documented in this encounter Results * Tissue Pathology Exam (07/21/2024 9:27 AM EDT) Case Report Surgical Pathology Report Case: [id number] Authorizing Provider: David Olivarez MD Collected: 07/21/2024 09:27 AM Ordering Location: [facility] Received: 07/21/2024 09:58 AM OR Pathologist: Wilfrid Alicea MD Specimens: 1) - Large Intestine, Right / Ascending Colon 2) - Large Intestine, Transverse Colon, x2 3) - Large Intestine, Transverse Colon, x2 07/22/2024 10:33 AM EDT [facility] Final Diagnosis 1. Colon, ascending, biopsy: A. Fragments of tubular adenoma. 2. Colon, transverse, biopsy: A. Fragments of tubular adenoma. 3. Colon, transverse, biopsy: A. Fragments of tubulovillous adenoma. 07/22/2024 10:33 AM T [facility] at 1033 EDT Gross [...] bisected polyps mb/uso/mec 07/22/2024 10:33 AM T [facility] Microscopic Description Unless gross only is specified, the final diagnosis for each specimen is based on microscopic examination of tissue. 07/22/2024 10:33 AM T [facility] Polyp Ascending colon structure / Unknown 07/21/2024 9:27 AM EDT 07/21/2024 9:58 AM EDT Other (qualifier value) Transverse colon structure / Unknown 07/21/2024 9:32 AM EDT 07/21/2024 9:58 AM EDT Other (qualifier value) Transverse colon structure / Unknown 07/21/2024 9:38 AM EDT 07/21/2024 9:58 AM EDT us David Olivarez MD PATHOLOGY/CYTOLOGY ORDERABLES Final Result [facility]
[address] [place] [address], * Colonoscopy (07/21/2024 9:07 AM EDT) us David Olivarez MD INTERFACE NEEDS Final Result * Telemetry Scan (07/21/2024) [facility] ORDERABLES Final Result documented [...] MD) documented in this encounter Care Teams Unit Control Clerk Relationship Specialty Start Date End Date Kyra Bolton MD [address] [facility] [address] [place] [address] PCP - General Internal Medicine & Pediatrics 11/05/22 documented as of this encounter
--- OUTSIDE RECORDS SUMMARY | 2024-07-21 08:45 | XMS_ITS | Encounter Summary ---
[facility] Address [address] [place] [address] Care Team Providers Care Role Player Name Role Phone Kyra Bolton MD Primary Care Provide r Reason for Visit * Auth/Cert Specialty Diagnoses / Procedures Referred By Contac t Referred To Contact Diagnoses Left lower quadrant abdominal pain Encounter for screening colonoscopy Left lower quadrant abdominal pain [R10.32] Encounter for screening colonoscopy [Z12.11] Procedures COLONOSCOPY Referral ID Status Reason Start Date Expiration Date Visits Re quested Visits Authorized [id number] 1 1 Encounter Details Date Type Department Care Team (Late st Contact Info) Description 07/21/2024 8:45 AM EDT - 07/21/2024 9:15 AM EDT Surgery [facility] [address] [place] [address] David Olivarez MD 1031 [facility] [address] [place] [address] COLONOSCOPY WITH POLYPECTOMY [17247 (CPT )] Social History Tobacco Use Types Packs/Day Years [...] Sign Reading Time Taken Comments Blood Pressure 129/79 07/21/2024 7:33 AM EDT Pulse 79 07/21/2024 7:33 AM EDT Temperature 36.5 C (97.7 F) 07/21/2024 7:33 AM EDT Respiratory Rate 10 07/21/2024 7:33 AM EDT Oxygen Saturation 98% 07/21/2024 7:33 AM EDT Inhaled Oxygen Concentration - - [...] 7:31 AM EDT Aleksandra Shannon RN * [place] Suicide Severity Rating Scale (Screener/Recent Self-Report) Question Answer Date of Assessment Author 6. Suicidal Behavior (Lifetime) No 7:31 AM EDT Becki Shannon RN documented as of this encounter Discharge Instructions * Attachments The following attachments cannot be sent through Care Everywhere. * Monitored Anesthesia Care Care After (Welsh) * Colonoscopy Adult Care After Ewey-tt-Sxgm (Welsh) * Colon Polyps (Welsh) * Hemorrhoids Kohb-yx-Vxho (Welsh) documented in this encounter Medications at Time [...] 30 tablet 1 07/18/2024 Allergies: Banana, Melon, [place], Sumatriptan, Ciclopirox, Penicillins, Cefaclor, and Prochlorperazine REVIEW [...] Info) Description 09/14/2024 9:40 AM EDT Lab [facility] [address] [place] [address] 09/21/2024 2:45 PM EDT Office Visit [facility] [address] [place] [address] Kyra Bolton MD [address] [place] [address] documented as of this encounter Procedures Procedure Name Priority Date/Time Associated Diagnosis Comments TISSUE PATHOLOGY EXAM Routine 07/21/2024 9:27 AM EDT Left lower quadrant abdominal pain Encounter for screening colonoscopy [place] COLONOSCOPY W/BIOPSY SINGLE/MULTIPLE 07/21/2024 9:10 AM EDT Left lower quadrant abdominal pain Encounter for screening colonoscopy COLONOSCOPY 07/21/2024 9:07 AM EDT SCANNED - TELEMETRY 07/21/2024 documented in this encounter Results * Tissue Pathology Exam (07/21/2024 9:27 AM EDT) Case Report Surgical Pathology Report Case: [id number] Authorizing Provider: David Olivarez MD Collected: 07/21/2024 09:27 AM Ordering Location: [facility] Received: 07/21/2024 09:58 AM OR Pathologist: Wilfrid Alicea MD Specimens: 1) - Large Intestine, Right / Ascending Colon 2) - Large Intestine, Transverse Colon, x2 3) - Large Intestine, Transverse Colon, x2 07/22/2024 10:33 AM EDT [facility] Final Diagnosis 1. Colon, ascending, biopsy: A. Fragments of tubular adenoma. 2. Colon, transverse, biopsy: A. Fragments of tubular adenoma. 3. Colon, transverse, biopsy: A. Fragments of tubulovillous adenoma. 07/22/2024 10:33 AM T [facility] at 1033 EDT Gross Description 1. [...] bisected polyps mb/uso/mec 07/22/2024 10:33 AM T [facility] Microscopic Description Unless gross only is specified, the final diagnosis for each specimen is based on microscopic examination of tissue. 07/22/2024 10:33 AM T [facility] Polyp Ascending colon structure / Unknown 07/21/2024 9:27 AM EDT 07/21/2024 9:58 AM EDT Other (qualifier value) Transverse colon structure / Unknown 07/21/2024 9:32 AM EDT 07/21/2024 9:58 AM EDT Other (qualifier value) Transverse colon structure / Unknown 07/21/2024 9:38 AM EDT 07/21/2024 9:58 AM EDT us David Olivarez MD PATHOLOGY/CYTOLOGY ORDERABLES Final Result [facility]
[address] [place] [address], * Colonoscopy (07/21/2024 9:07 AM EDT) us David Olivarez MD INTERFACE NEEDS Final Result * Telemetry Scan (07/21/2024) [facility] Onbase ECG ORDERABLES Final Result documented in this encounter Visit Diagnoses Diagnosis Left lower quadrant abdominal pain Encounter for screening colonoscopy Left lower quadrant abdominal pain Encounter for [...] with simethicone 40 MG/0.6ML 3 mL mixture As Needed, Starting on Jenelle 07/21/24 at 1008 Given 07/21/2024 10:08 AM EDT [address] Lower sterile water irrigation solution As Needed, Starting on Jenelle 07/21/24 at 0950 Given 07/21/2024 9:50 AM EDT 1,[address] Lower documented in this encounter Active and Recently Administered Medications Times are shown in EDT. Scheduled Medication Order 07/19/2024 07/20/2024 07/21/2024 lactated ringers infusion 100 mL/hr, Intravenous, Once, On Jenelle 07/21/24 at 1100, For 1 dose 1000 (Rate/Dose Ramos ge - Provider: Cynthia Zarate RN)1020 (Stopped - Provider: Cynthia Zarate RN) sodium [...] MD) documented in this encounter Care Teams Role Player Relationship Specialty Start Date End Date Kyra Bolton MD 1023 [facility] [address] [place] [address] PCP - General Internal Medicine & Pediatrics 11/05/22 documented as of this encounter
--- OUTSIDE RECORDS SUMMARY | 2024-07-21 09:10 | XMS_ITS | Encounter Summary ---
[facility] Address [address] [place] [address] Care Team Providers Care Computing Consultant Name Role Phone Kyra Bolton MD Primary Care Provide r Reason for Visit * Auth/Cert Specialty Diagnoses / Procedures Referred By Contac t Referred To Contact Diagnoses Left lower quadrant abdominal pain Encounter for screening colonoscopy Left lower quadrant abdominal pain [R10.32] Encounter for screening colonoscopy [Z12.11] Procedures COLONOSCOPY Referral ID Status Reason Start Date Expiration Date Visits Re quested Visits Authorized [id number] 1 1 Encounter Details Date Type Department Care Team (Late st Contact Info) Description 07/21/2024 9:10 AM EDT Anesthesia Event [facility] [place] OR [address] [place] [phone] Mariel Ferreira CRNA [address] [place] [address] Kinza Chavez CRNA [address] [place] [address] Anesthesia Record Procedure Summary Procedure Name Responsible Anesthesiologist Anesthesia Start Time Anesthesia Stop Time COLONOSCOPY WITH POLYPECTOMY Mariel Ferreira CRNA 07/21/24 0910 07/21/24 0954 Events Date Time Event Comment 07/21/2024 0743 0904 AN Equip Check 0910 An Start The patient was reevaluated immediately before moderate or deep sedation use and before anesthesia induction. 0910 An Start Data 0916 An Induction 0919 Anesthesia Ready 0953 an stop data 0953 Handoff to RN The following has been completed: 1. Identification of Patient, vera family member(s) or patient surrogate 2. Identification of the responsible Practitioner (primary service) 3. Discussion of the pertinent/attainable medical history 4. Discussion of the surgical/procedure course (procedure, reason for surgery, procedure performed) 5. Intraoperative anesthetic management and issue/concerns to include things such as airway, hemodynamics, narcotic, sedation level and paralytic management and intravenous fluids/blood products and urine output during the procedure 6. Expectations/Plans for the early post-procedure period to include things such as anticipated course (anticipatory guidance), complications, need for laboratory or ECG and medication administration 7. Opportunity for questions and acknowledgment of understanding of report from the receiving PACU/ICU team 0954 An Stop Meds Name Total dexmedetomidine HCl 200 MCG/2ML 10 mcg lidocaine 2% 80 mg Propofol 200 MG/20ML 530 mg midazolam 2 MG/2ML 2 mg lactated ringers infusion 500 mL * Agents Name O2 * Blood No blood administrations on file. Lines, Drains, and Airways Type Details Placement Removal Peripheral IV Placement Date: 07/10 04/05; Placement Time: 0740; Catheter Size: 20 G; Orientation: Anterior, Proximal, Right; Location: Forearm; Site Prep: Chlorhexidine; Technique: Anatomical landmarks; Inserted by: saman; Insertion Attempts: 2; Patient Tolerance: Tolerated well; Removal Date: 07/21/24; Removal Time: 1020 07/21/24 0740 by Becki Shannon RN 07/21/24 1020 by Cynthia Zarate RN documented in this encounter Social History Tobacco Use Types Packs/Day Years [...] on file documented as of this encounter Functional Status * Question Answer [...] 7:31 AM EDT Aleksandra Shannon RN * [place] Suicide Severity Rating Scale (Screener/Recent Self-Report) Question Answer Date of Assessment Author 6. Suicidal Behavior (Lifetime) No 7:31 AM EDT Becki Shannon RN documented as of this encounter OR Notes * Anesthesia Postprocedure Evaluation - Amanda Glez CRNA - 07/21/2024 10:18 AM EDT Patient: Josias Perea Procedure Summary Date: 07/21/24 Room / Location: [facility] ENDOSCOPY 2 / [facility] OR Anesthesia Start: 909 Anesthesia Stop: 953 Procedure: COLONOSCOPY WITH POLYPECTOMY Diagnosis: Left lower quadrant abdominal pain Encounter for screening colonoscopy (Left lower quadrant abdominal pain [R10.32]) (Encounter for screening colonoscopy [Z12.11]) Surgeons: David Olivarez MD Provider: Mariel Ferreira CRNA Anesthesia Type: MAC ASA Status: 2 Anesthesia Type: MAC Vitals Vitals Value Taken Time BP 103/66 07/21/24 10:00 Temp 97.9 ??F (36.6 ??C) 07/21/24 09:57 Pulse 73 06/12/25 10:15 Resp 12 07/21/24 09:57 SpO2 100 % 07/21/24 10:08 Vitals shown include unfiled device data. Post Anesthesia Care and Evaluation Patient location during evaluation: PHASE II Patient participation: complete - patient participated Level of consciousness: awake Pain management: adequate Airway patency: patent Anesthetic complications: No anesthetic complications PONV Status: none Cardiovascular status: acceptable Respiratory status: acceptable Hydration status: acceptable * Anesthesia Preprocedure Evaluation - Amanda Glez CRNA - 07/21/2024 7:38 AM EDT Images from the original note were not included. Anesthesia Evaluation Patient summary reviewed and Nursing notes reviewed no history of anesthetic complications: NPO Solid Status: > 8 hours NPO Liquid Status: > 4 hours Airway Mallampati: I TM distance: >3 FB Neck ROM: full No difficulty expected Dental (+) poor dentition Pulmonary breath sounds clear to auscultation (+) a smoker Current, Smoked day of surgery, cigarettes, asthma (used both inhalers this am), Cardiovascular - negative cardio ROS Exercise tolerance: good (4-7 METS) Rhythm: regular Rate: normal Neuro/Psych (+) headaches, psychiatric history Anxiety, Depression and ADHD GI/Hepatic/Renal/Endo (+) GERD well controlled, renal disease- stones Musculoskeletal (+) neck pain, neck stiffness Abdominal Substance History (+) drug use (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 Use of blood products discussed with patient Consented to blood products. CODE STATUS: documented in this encounter Plan of Treatment Upcoming Encounters Date Type Department Care Team (Late st Contact Info) Description 09/14/2024 9:40 AM EDT Lab [facility] [address] [facility] [address] [place] [address] 09/21/2024 2:45 PM EDT Office Visit [facility] [address] [place], [place] [address] Kyra Bolton MD [address] [place], [place] [address] documented as of this encounter Visit Diagnoses Not on filedocumented in this encounter Administered Medications Inactive Administered Medications - up to 3 most recent administrations Medication Order MAR Action Action Date Dose Rate Site dexmedetomidine HCl (PRECEDEX) injection Intravenous, As Needed, Starting on Jenelle 07/21/24 at 0916 Given 07/21/2024 9:19 AM EDT 5 mcg Given 07/21/2024 9:16 AM EDT 5 mcg lactated ringers infusion 9 mL/hr, Intravenous, Continuous, Starting on Jenelle 07/21/24 at 0815, For 1 day New Bag 07/21/2024 9:53 AM EDT Restarted 07/21/2024 9:11 AM EDT Currently Infusing 07/21/2024 9:10 AM EDT 9 mL/ hr lidocaine (XYLOCAINE) 2% injection Infiltration, As Needed, Starting on Jenelle 07/21/24 at 0916 Given 07/21/2024 9:16 AM EDT 80 mg midazolam (VERSED) injection Intravenous, As Needed, Starting on Jenelle 07/21/24 at 0919 Given 07/21/2024 9:19 AM EDT 2 mg Propofol (DIPRIVAN) injection Intravenous, As Needed, Starting on Jenelle 07/21/24 at 0916 Given 07/21/2024 9:16 AM EDT 530 mg documented in this encounter Care Teams Computing Consultant Relationship Specialty Start Date End Date Kyra Bolton MD [address] [place], [place] [address] PCP - General Internal Medicine & Pediatrics 11/05/22 documented as of this encounter
--- OUTSIDE RECORDS SUMMARY | 2024-08-04 10:33 | XMS_ITS | Encounter Summary ---
[facility] Address [address] [place] [address] Care Team Providers Care Wood Heel Finisher Name Role Phone Kyra Bolton MD Primary Care Provide r Reason for Referral * MRI/CAT/PET Scan (Routine) - Closed Specialty Diagnoses / Procedures Referred By Rachel Referred To Contact Radiology Diagnoses Other chronic gastritis with hemorrhage Nausea and vomiting, unspecified vomiting type Cannabis hyperemesis syndrome concurrent with and due to cannabis dependence Procedures NM gastric emptying Kyra Bolton MD [address] [place] [address] Phone: tel: fax: [facility] [employer] NUC MED [address] [place] [phone] Phone: tel: Referral ID Status Reason Start Date Expiration Date Visits Re quested Visits Authorized [id number] Closed 06/21/2024 09/20/2025 1 1 Reason for Visit * MRI/CAT/PET Scan (Routine) - Closed Specialty Diagnoses / Procedures Referred By Contac Referred To Contact Radiology Diagnoses Other chronic gastritis with hemorrhage Nausea and vomiting, unspecified vomiting type Cannabis hyperemesis syndrome concurrent with and due to cannabis dependence Procedures NM gastric emptying Kyra Bolton MD [address] [place] [address] Phone: tel: fax: [facility] NUC MED [address] [place] [address] [phone] Phone: tel: Referral ID Status Reason Start Date Expiration Date Visits Re quested Visits Authorized [id number] Closed 06/21/2024 09/20/2025 1 1 Encounter Details Date Type Department Care Team (Late st Contact Info) Description 08/04/2024 10:33 AM EDT - 08/04/2024 11:59 PM EDT Hospital Encounter [facility] [place] NUC MED [address], [place] [address] Kyra Bolton MD [address] [place] [address] [...] Info) Description 09/14/2024 9:40 AM EDT Lab [facility] [address] [place] [address] 09/21/2024 2:45 PM EDT Office Visit [facility] [address]ICA [...] MD 08/04/2024 2:21 PM EDT Workstation ID: [id number] Narrative 08/04/2024 2:21 PM EDT NM GASTRIC [...] MD 08/04/2024 2:21 PM EDT Workstation ID: [id number] Kyra Bolton MD IM NM ORDERABLES Fin [...] dose documented in this encounter Care Teams Wood Heel Finisher Relationship Specialty Start Date End Date Kyra Bolton MD [address] [facility] [address] [place], [place] [id number] PCP - General Internal Medicine & Pediatrics 11/05/22 documented as of this encounter
[2024-08-23] VITALS (10 sets, daily range): BP systolic 93–242; BP diastolic 74–121; PULSE 51–68; RESP 20; TEMP 36.6–36.9; O2SAT 93–100; BMI 26.2
--- OUTSIDE RECORDS SUMMARY | 2024-08-23 16:15 | XMS_ITS | Clinical Summary ---
Author Organization [facility] Address [address] [place] [address] Care Team Providers Care Administrator Of Home Health Name Role Phone Curly Grey MD Primary Care Provider [phone] Social History Tobacco Use Types Packs/Day Years Used Date Smoking Tobacco: Never Assessed Sex and Gender Information Value Date Recorded Sex Assigned at Not on file Legal Sex Male 12:23 PM EDT Gender Identity Not on file Sexual Orientation Not on file Plan of Treatment Health Maintenance Due Date Last Done Comments HIV Screening 1982 Hepatitis C Screening 1982 Lipid Panel 1982 MMR Vaccines (1 of 1 - Stand scott series) 10/20/1983 Varicella Vaccines (1 of 2 - 13+ 2-dose series) 10/20/1995 Hepatitis B Screening 2000 DTaP/Tdap/Td Vaccines (1 - Tdap) 2001 Hepatitis B Vaccines (1 of 3 - 19+ 3-dose series) 2001 COVID-19 Vaccine (1 - 2023-2 5 season) 2023 Depression Risk Screening 02/10/2024 SDOH Screening 02/10/2024 Influenza Vaccine (#1) 2024 Zoster Vaccines (1 of 2) 2032 HIB Vaccines Aged Out No longer eligi ble based on patient's age to complete this topic HPV Vaccines Aged Out No longer eligi ble based on patient's age to complete this topic Hepatitis A Vaccines Aged Out No long er eligible based on patient's age to complete this topic IPV Vaccines Aged Out No longer eligi ble based on patient's age to complete this topic Meningococcal B Vaccine Aged Out No l onger eligible based on patient's age to complete this topic Meningococcal Vaccine Aged Out No jackie eben eligible based on patient's age to complete this topic Pneumococcal Vaccine Aged Out No long er eligible based on patient's age to complete this topic Rotavirus Vaccines Aged Out No longer eligible based on patient's age to complete this topic Insurance [employer] [facility] Care Teams Administrator Of Home Health Relationship Specialty Start Date End Date Curly Grey MD [address] [place] [id number] PCP - General Family Medicine 11/10/23
--- OUTSIDE RECORDS SUMMARY | 2024-08-23 16:16 | XMS_ITS | Encounter Summary ---
[facility] Address [address] [place] [address] Care Team Providers Care Shoe Repairman Name Role Phone Kyra Bolton MD Primary Care Provide r Reason for Visit * Reason Comments Med Refill Encounter Details Date Type Department Care Team (Late st Contact Info) Description 07/22/[address] [facility] [address] [facility] [address] [place] [address] Kyra Bolton MD [address] [facility] [address] [place] [address] Anxiety and depression Social History Tobacco Use Types Packs/Day Years [...] on file documented as of this encounter Plan of Treatment Upcoming Encounters Date Type Department Care Team (Late st Contact Info) Description 09/14/2024 9:[address] [facility] [address] [place] [address] 09/21/2024 2:45 PM EDT Office Visit [facility] [address] [place] [address] Kyra Bolton MD [address] [place] [address] documented as of this encounter Visit Diagnoses Diagnosis Anxiety and depression documented in this encounter Care Teams Shoe Repairman Relationship Specialty Start Date End Date Kyra Bolton MD [address] [place] [address] PCP - General Internal Medicine & Pediatrics 11/05/22 documented as of this encounter
--- OUTSIDE RECORDS SUMMARY | 2024-08-23 16:16 | XMS_ITS | Encounter Summary ---
[facility] Address [address] [place] [address] Care Team Providers Care Tinning Equipment Tender Name Role Phone Kyra Bolton MD Primary Care Provide r Reason for Visit * Reason Comments Med Refill Encounter Details Date Type Department Care Team (Late st Contact Info) Description 08/02/[address] [facility] [address] [place] [address] Kyra Bolton MD [address] [facility] [address] [place] [address] Sleep difficulties Social History Tobacco Use Types Packs/Day Years [...] on file documented as of this encounter Miscellaneous Notes * Telephone Encounter - Martha Oliver MA - 08/03/2024 4:48 PM EDT Rx Refill Note Requested Prescriptions Refused Prescriptions Disp Refills traZODone (DESYREL) 50 MG tablet [Pharmacy Med Name: TRAZODONE 50MG TABLETS] 30 tablet 2 Sig: TAKE 1 TABLET BY MOUTH EVERY NIGHT Refused By: MARTHA OLIVER Reason for Refusal: Patient has requested refill too soon Last office visit with prescribing clinician: 06/21/2024 Last telemedicine visit with prescribing clinician: 03/04/2024 Next office visit with prescribing clinician: 09/21/2024 Would you like a call back once the refill request has been completed: [] Yes [] No If the office needs to give you a call back, can they leave a voicemail: [] Yes [] No Martha Oliver MA 08/03/24, 16:49 EDT documented in this encounter Plan of Treatment Upcoming Encounters Date Type Department Care Team (Late st Contact Info) Description 09/14/2024 9:40 AM EDT Lab [facility] [address] [facility] [address] [place] [address] 09/21/2024 2:45 PM EDT Office Visit [facility] [address] [place] [address] Kyra Bolton MD [address] [place] [address] documented as of this encounter Visit Diagnoses Diagnosis Sleep difficulties documented in this encounter Care Teams Tinning Equipment Tender Relationship Specialty Start Date End Date Kyra Bolton MD [address] [facility] [address] [place] [address] PCP - General Internal Medicine & Pediatrics 11/05/22 documented as of this encounter
--- OUTSIDE RECORDS SUMMARY | 2024-08-23 16:16 | XMS_ITS | Encounter Summary ---
Author Organization [facility] Address [address] [place] [address] Care Team Providers Care Doughmaker Name Role Phone Kyra Bolton MD Primary Care Provide r Reason for Visit * Reason Comments Med Refill Encounter Details Date Type Department Care Team (Late st Contact Info) Description 08/16/2024 Refill [facility] [address] [facility] [address] [place] [address] Kyra Bolton MD [address] [facility] [address] [place] [address] Wheezing Social History Tobacco Use Types Packs/Day Years [...] Miscellaneous Notes * Telephone Encounter - Martha James MA - 08/17/2024 7:43 AM EDT albuterol sulfate HFA 108 (90 Base) MCG/ACT inhaler [Pharmacy Med Name: ALBUTEROL HFA INH (200 PUFFS) 18GM] is not on the preferred formulary for the patient's insurance plan. Below are alternatives which are likely to be more affordable. Do not assume that every medication presented is a clinically appropriate alternative. Rx Refill Note Requested Prescriptions Pending Prescriptions Disp Refills albuterol sulfate HFA 108 (90 Base) MCG/ACT inhaler [Pharmacy Med Name: ALBUTEROL HFA INH (200 PUFFS) 18GM] 90 g 0 Sig: INHALE 2 PUFFS BY MOUTH EVERY 4 HOURS NEEDED FOR WHEEZING Last office visit with prescribing clinician: 06/21/2024 Last telemedicine visit with prescribing clinician: 03/04/2024 Next office visit with prescribing clinician: 09/21/2024 Would you like a call back once the refill request has been completed: [] Yes [] No If the office needs to give you a call back, can they leave a voicemail: [] Yes [] No Martha James MA 08/17/24, 07:43 EDT * Telephone Encounter - Martha James MA - 08/17/2024 7:42 AM EDT Rx Refill Note Requested Prescriptions Pending Prescriptions Disp Refills albuterol sulfate HFA 108 (90 Base) MCG/ACT inhaler [Pharmacy Med Name: ALBUTEROL HFA INH (200 PUFFS) 18GM] 90 g 0 Sig: INHALE 2 PUFFS BY MOUTH EVERY 4 HOURS NEEDED FOR WHEEZING Last office visit with prescribing clinician: 06/21/2024 Last telemedicine visit with prescribing clinician: 03/04/2024 Next office visit with prescribing clinician: 09/21/2024 Would you like a call back once the refill request has been completed: [] Yes [] No If the office needs to give you a call back, can they leave a voicemail: [] Yes [] No Martha James MA 08/17/24, 07:42 EDT documented in this encounter Plan of Treatment Upcoming Encounters Date Type Department Care Team (Late st Contact Info) Description 09/14/2024 9:40 AM EDT Lab [facility] [address] [place] [address] 09/21/2024 2:45 PM EDT Office Visit [facility] [address] [place] [address] Kyra Bolton MD [address] [place] [address] documented as of this encounter Visit Diagnoses Diagnosis Wheezing documented in this encounter Care Teams Doughmaker Relationship Specialty Start Date End Date Kyra Bolton MD [address] [place] [address] PCP - General Internal Medicine & Pediatrics 11/05/22 documented as of this encounter
--- OUTSIDE RECORDS SUMMARY | 2024-08-23 16:16 | XMS_ITS | Encounter Summary ---
[facility] Address [address] [place] [address] Care Team Providers Care Odd Job Laborer Name Role Phone Kyra Bolton MD Primary Care Provide r Encounter Details Date Type Department Care Team (Latest Contact Info) Description 07/18/2024 Travel Social History Tobacco Use Types Packs/Day Years [...] 9:40 AM EDT Lab [facility] [address] [facility] [address] [place] [address] 09/21/2024 2:45 PM EDT Office Visit [facility] [address] [place] [address] Kyra Bolton MD [address] [place] [address] documented as of this encounter Visit Diagnoses Not on filedocumented in this encounter Care Teams Odd Job Laborer Relationship Specialty Start Date End Date Kyra Bolton MD [address] [place] [address] PCP - General Internal Medicine & Pediatrics 11/05/22 documented as of this encounter
--- OUTSIDE RECORDS SUMMARY | 2024-08-23 16:16 | XMS_ITS | Encounter Summary ---
[facility] Address [address] [place] [address] Care Team Providers Care Minilab Operator Name Role Phone Kyra Bolton MD Primary Care Provide r Encounter Details Date Type Department Care Team (Latest Contact Info) Description 07/18/2024 Prep for Surgery [facility] OR [address] [facility] [address] [place] [address] Antonia Marroquin, ELECTRICIAN THIRD [address] [facility] [address] [place], [place] [id number] Left lower quadrant abdominal pain (Primary Dx); Encounter for screening colonoscopy [...] Info) Description 09/14/2024 9:40 AM EDT Lab [facility] [address] [place] [address] 09/21/2024 2:45 PM EDT Office Visit [facility] [address] [place] [address] Kyra Bolton MD [address] [place] [address] documented as of this encounter Visit Diagnoses Diagnosis Left lower quadrant abdominal pain- Primary Encounter for screening colonoscopy documented in this encounter Care Teams Minilab Operator Relationship Specialty Start Date End Date Kyra Bolton MD [address] [place] [address] PCP - General Internal Medicine & Pediatrics 11/05/22 documented as of this encounter
--- OUTSIDE RECORDS SUMMARY | 2024-08-23 16:16 | XMS_ITS | Encounter Summary ---
[facility] Address [address] [place] [address] Care Team Providers Care Director Of Security Name Role Phone Kyra Bolton MD Primary Care Provide r Reason for Visit * Reason Comments Med Refill Encounter Details Date Type Department Care Team (Late st Contact Info) Description 07/20/2024 Refill [facility] [address] [facility] [address] [place] [address] Kyra Bolton MD [address] [facility] [address] [place] [address] Anxiety and depression Social History Tobacco [...] Telephone Encounter - Martha Oliver MA - 07/20/2024 3:51 PM EDT Rx Refill Note Requested Prescriptions Refused Prescriptions Disp Refills escitalopram (LEXAPRO) 20 MG tablet [Pharmacy Med Name: ESCITALOPRAM 20MG TABLETS] 30 tablet 2 Sig: TAKE 1 TABLET BY MOUTH DAILY Refused By: MARTHA OLIVER Reason for Refusal: [...] [] Yes [] No Martha Oliver MA 07/20/24, 15:52 EDT documented in this encounter Plan of Treatment Upcoming Encounters Date Type Department Care Team (Late st Contact Info) Description 09/14/2024 9:40 AM EDT Lab [facility] [address] [place] [address] 09/21/2024 2:45 PM EDT Office Visit [facility] [address] [place] [address] Kyra Bolton MD [address] [place] [address] documented as of this encounter Visit Diagnoses Diagnosis Anxiety and depression documented in this encounter Care Teams Director Of Security Relationship Specialty Start Date End Date Kyra Bolton MD [address] [facility] [address] [place] [address] PCP - General Internal Medicine & Pediatrics 11/05/22 documented as of this encounter
--- OUTSIDE RECORDS SUMMARY | 2024-08-23 16:16 | XMS_ITS | Data Portability ---
Author Organization [facility], DME [facility] Address [address] [facility] [address] [place] [phone] Care Team Providers Care Build Engineer Name Role Phone JANUSZ VICTORIA Primary Care Provider JANUSZ VICTORIA Referring Provider [phone] Assessment Encounter Date Assessment Date Assessment LastModified by Organization Details LastModified Time 12/11/2022 12/11/2022 42-year-old [id number] male with: 1. Bilateral wrist carpal tunnel syndrome, diagnosis by prior response to corticosteroid injection, history and physical exam. We discussed the condition today, including relevant anatomy, natural history and treatment options, both conservative and surgical. Given that he has trialed bracing at night without remission of symptoms, I recommended additional treatment. Alternatives of surgical release versus corticosteroid injection were discussed. Currently, he is private pay and in between insurance. As such, he is concerned that the cost of surgery would be financially ruin some. For this reason, although he understands that there is a risk of irreversible nerve damage which can cause weakness in the thenar muscle groups, he requests conservative management consisting of injection. He understands that the relief is likely to be temporary in nature. To prevent any delay in obtaining surgery should there be recurrence, I recommended obtaining electrodiagnostic studies to evaluate for the severity of carpal tunnel syndrome. Following this discussion, questions were solicited and answered to his satisfaction. He voiced a desire to proceed with conservative treatment including cock-up wrist brace and injection today. We also directed to the [email or web address] website for further information. He will return after electrodiagnostics are complete. [email or web address] Not available 12/11/2022 21:31:09 Plan of Treatment Reminders Order Date Submit Date Provider Last Modified By Organization Details Last Modified Time Details Appointments None recorded. Lab None recorded. Referral None recorded. Procedures None recorded. Surgeries None recorded. Imaging XR, wrist, 3 or more view 2022 023 nfoeger [facility], [address], [place], [address], 3 21:28:49 XR, cervical spine, 2 or 3 view 2022 023 nfoeger [facility], [address], [place], [address], 3 21:29:01 Medication Orders None recorded. Patient TargetsNo targets recorded. Patient Instructions Encounter Date Encounter Id Patient Instructions Last Modified By Organization Details Last Modified Time 12/11/2022 [id number] 1. Corticosteroi d injection of bilateral wrist carpal tunnel today, see below. 2. Referral for bilateral upper extremity electrodiagnostic studies to evaluate for severity of carpal tunnel syndrome. 3. As tolerated, he will wear nighttime cock-up wrist braces. 4. Follow-up after electrodiagnostic studies are complete, sooner if needed. Diagnosis: Bilateral wrist carpal tunnel syndrome Procedure: Corticosteroid injection of the above (CPT 54075 x2) The risks of the procedure including skin atrophy and discoloration, tendon rupture and increased blood glucose were discussed with the patient who gave permission to proceed. Regional landmarks were palpated and the injection site was cleaned with alcohol. The patient was counseled to alert me if they should experience shocks into the fingers. Injection of the right first followed by the left was performed with ready flow of the injectate. Injection consisted of 40 mg triamcinolone and 1 ml of 1% buffered lidocaine, for each wrist. Injection site was cleaned and dressed with a sterile bandage. The patient tolerated the procedure well with no immediate complication. Instructions were given to ice injection site tonight. Anticipate the site of injection will remain numb for approximately 3 to 6 hours and that the corticosteroid should take 3 to 5 days to fully take effect. Patient was counseled on signs and symptoms concerning for infection and to call the office with any questions or concerns. [email or web address] Not available 12/11/2022 21:32:03 Reason for Referral None Reported. Results Created Date Observation Date Name Description Value Unit Range Abnormal Flag Note LastModifiedBy Organization Detail LastModifiedTime 12/12/19 23 12/11/2022 XR, wrist , 3 or more view No observ ation record ed. [facility] [address], [place], [address], 12/11/2022 21:28:48 12/12/19 23 12/11/2022 XR, cervi amadou spine , 2 or 3 view No observ ation record ed. [facility] [address], [place], [address], 12/11/2022 21:29:01 Result Notes None recorded. Problems Name Problem SNOMED Code Status Onset Date Resolution Date Notes Provider Name and Address Organization Details Recorded Time Numbness of hand 447614618 Active 023 Nick Naranjo MD [address], [place], [address] , [facility] 11:12:10 Problem Notes None recorded. Procedures Surgical History Date Name Laterality Status Provider Name and Address Organization Details Recorded Time Knee Surgery completed Nick Naranjo MD [address], [place], [address], [facility] 12/11/2022 10:27:25 ENT Surgery completed Nick Naranjo MD [address], [place], [address], [facility] 12/11/2022 10:27:25 Imaging Results None recorded. Procedure Notes None recorded. Medical Equipment None Reported. Allergies No known drug allergies Medications Name Sig Start Date Stop Date Status Note LastModified by Organization Details LastModified Time meloxicam active Not Available Not Luly ilable Not Available albuterol active Not Available Not Luly ilable Not Available trazodone active Not Available Not Luly ilable Not Available buspirone active Not Available Not Luly ilable Not Available Lexapro active Not Available Not Avail able Not Available Vitals None Recorded Social History Question Answer Notes LastModified by Organizat ion Details LastModified Time Tobacco Smoking Status Current Every Day Smoker Nick Naranjo MD [address] [facility] [address], [address], [facility] 12/11/2022 10:27:21 Do You Have An Advance Directive? No Information n ot available 12/11/2022 In The 14 Days Before Symptom Onset, Have You Had Close Contact With A Laboratory-confirm ed COVID-19 While That Case Was Ill? No Information n ot available 12/11/2022 In The 14 Days Before Symptom Onset, Have You Had Close Contact With A Person Who Is Under Investigation For COVID-19 While That Person Was Ill? No Information not available 12/11/2022 Have You Been To An Area Known To Be High Risk For COVID-19? No Information not available 12/11/2022 Do You Have A Medical Power Of Presentation Team Member? No Information not available 12/11/2022 At What Age Did You Start Smoking Tobacco? 22 Information not available 12/11/2022 How Much Tobacco Do You Smoke? 0.5 PPD Information not available 12/11/2022 Has Tobacco Cessation Counseling Been Provided? Yes Information not available 12/11/2022 Have You Recently Traveled Abroad? No Information not available 12/11/2022 How Many Years Have You Used E-cigarettes Or Vape? 20 Information not available 12/11/2022 How Many Years Have You Used Smokeless Tobacco? 3 Information n ot available 12/11/2022 Sex: Male Functional Status Question Answer Note LastModified by Organizat ion Details LastModified Time Do you use any illicit or recreational drugs? No Information not available 12/11/2022 Do you or have you ever used any other forms of tobacco or nicotine? No Information not available 12/11/2022 What is your level of alcohol consumption? None Information not available 12/11/2022 Do you or have you ever used smokeless tobacco? Former smokeless tobacco user Information not available 12/11/2022 Mental Status None recorded. Family History Relationship Description Onset Age of this Age Resolved Age Notes LastModified by Organization Details LastModified Time Unspecified Relation Family history of malignant neoplasm [email or web address] Not available 2022 10:27:18 Unspecified Relation Heart disease [email or web address] Not available 2022 10:27:18 Medical History Condition Response Anxiety Disorder Y Headaches/Migraines Y Depression Y Asthma Y MRSA Past Encounters Encounter ID Performer Location Encounter Start Date Encounter Closed Date Diagnosis/Indication Diagnosis SNOMED-CT Code Diagnosis ICD10 Code Diagnosis Note [id number] Nick Naranjo MD [facility] [address] [facility] [address] [place], [place] [phone] 12/11/2022 09:28:28 12/11/2022 11:15:39 Bilateral carpal tunnel syndrome [id number] 0446180 G56.03 Numbness of hand 9552309 04 R20.0 Health Concerns Section Related Observation LastModified by Organization Detai ls LastModified Time None Recorded Concern Status LastModified by Organization Details LastModified Time None Recorded Advance Directives Directive N: Payers Insurance Date Sequence Insurance Name Policy Number Policy Greer Covered Member ID Greer Member ID Guarantor Name 12/11/2022 1 [facility] (MEDICAID HMO) Josias Perea [id number] Josias Perea 11/20/2022 1 *SELF PAY* Jennie Perea 12/11/2022 1 *SELF PAY* Jennie Perea 01/15/2023 *SELF PAY* Jennie Perea Notes Date Note Type Note Provider Name and Address Organization Details Recorded Time 12/11/2022 text/html 42y/o [id number] male c/o bilateral hand pain and numbness History obtained 12/11/2022: Onset: 2 months prior but with a similar episode in 2019 Location: Bilateral hands, predominantly in the thumb through middle finger Timing: Constant but worse with activities such as chopping in the kitchen and worse at night while sleeping Quality: Burning pain and numbness that keep him awake. 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 Severity: 3-4/10 at best, 9/10 at worst Modifying factors: Has received corticosteroid injections at the carpal tunnel bilaterally in 2019 which completely resolved symptoms until 2 months ago. He is trialed cock-up wrist braces but notes that these are too painful for him to wear at night. He received a steroid Dosepak which did not provide any relief. He is also trialed naproxen as well as prescribed meloxicam without change. Context: No history of trauma. Notes that he is began to experience recurrence of burning pain in the hands that radiates up to the elbow. He feels that it is on fire. It is worse at night and at this point he is getting less than an hour of sleep. Pain also occurs while driving. As noted above, he previously had a similar pain and presented to the emergency department due to an inability to sleep. He received a corticosteroid injection from a sports medicine physician who is on-call at that time. This completely relieved paresthetic numbness until approximately 2 months ago. 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 This is almost unbearable. Nick Naranjo MD [address], [address], [facility] 12/11/2022 21:32:18
--- OUTSIDE RECORDS SUMMARY | 2024-08-23 16:16 | XMS_ITS | Encounter Summary ---
[facility] Address [address] [place] [address] Care Team Providers Care Marine Radio Installer And Servicer Name Role Phone Kyra Bolton MD Primary Care Provide r Encounter Details Date Type Department Care Team (Latest Contact Info) Description 07/21/2024 Travel Social History Tobacco Use Types Packs/Day [...] 7:31 AM EDT Aleksandra Shannon RN * [place] Suicide Severity Rating Scale (Screener/Recent Self-Report) Question Answer Date of Assessment Author 6. Suicidal Behavior (Lifetime) No 7:31 AM EDT Becki Shannon RN documented as of this encounter Plan of Treatment Upcoming Encounters Date Type Department Care Team (Late st Contact Info) Description 09/14/2024 9:40 AM EDT Lab [facility] [address] [place] [address] 09/21/2024 2:45 PM EDT Office Visit [facility] [address] [place] [phone] Kyra Bolton MD [address] [place] [address] documented as of this encounter Visit Diagnoses Not on filedocumented in this encounter Care Teams Marine Radio Installer And Servicer Relationship Specialty Start Date End Date Kyra Bolton MD [address] [place] [address] PCP - General Internal Medicine & Pediatrics 11/05/22 documented as of this encounter
--- OUTSIDE RECORDS SUMMARY | 2024-08-23 16:16 | XMS_ITS | Encounter Summary ---
[facility] Address [address] [place] [address] Care Team Providers Care Yarn Man Name Role Phone Kyra Bolton MD Primary Care Provide r Reason for Visit * Reason Comments Med Refill Encounter Details Date Type Department Care Team (Late st Contact Info) Description 07/07/2024 Refill [facility] [address] [facility] [address] [place] [address] Kyra Bolton MD [address] [facility] [address] [place] [address] Anxiety and depression Social History Tobacco Use Types Packs/Day Years Used Date Smoking Tobacco: Every Day Cigarettes 0.5 20 Passive Smoke Exposure: Past Smokeless Tobacco: Never [...] encounter Miscellaneous Notes * Telephone Encounter - Sandeep Giraldo MA - 07/07/2024 3:40 PM EDT Rx Refill Note Requested Prescriptions Pending Prescriptions Disp Refills escitalopram (LEXAPRO) 20 MG tablet [Pharmacy Med Name: ESCITALOPRAM 20MG TABLETS] 30 tablet 2 Sig: TAKE 1 TABLET BY MOUTH DAILY Last office visit with prescribing clinician: 06/21/2024 Last telemedicine visit with prescribing clinician: 03/04/2024 Next office visit with prescribing clinician: 09/21/2024 Would you like a call back once the refill request has been completed: [] Yes [] No If the office needs to give you a call back, can they leave a voicemail: [] Yes [] No Sandeep Giraldo MA 07/07/24, 15:40 EDT documented in this encounter Plan of Treatment Upcoming Encounters Date Type Department Care Team (Late st Contact Info) Description 09/14/2024 9:40 AM EDT Lab [facility] [address] [place] [address] 09/21/2024 2:45 PM EDT Office Visit [facility] [address] [place] [address] Kyra Bolton MD [address] [place] [address] documented as of this encounter Visit Diagnoses Diagnosis Anxiety and depression documented in this encounter Care Teams Yarn Man Relationship Specialty Start Date End Date Kyra Bolton MD [address] [place] [address] PCP - General Internal Medicine & Pediatrics 11/05/22 documented as of this encounter
--- OUTSIDE RECORDS SUMMARY | 2024-08-23 16:16 | XMS_ITS | Clinical Summary ---
Author Organization [facility] Address [address] [place] [address] Care Team Providers Care Grey Roll Worker Name Role Phone Kyra Bolton Primary Care Provider [phone] Allergies Active Allergy Reactions Criticality Noted Date Comments Ciclopirox Hives High 12/14/2020 Penicillins Hives High 12/14/2020 Prochlorperazine Anxiety,Rash Low 06/22/2023 Teeth clenching <paragraph>Teeth clenching</paragraph> Sumatriptan Other (See Comments) High 12/14/2020 PT STATES MOTOR SKILLS, BREATHING, AND HR SLOWED <paragraph>PT STATES MOTOR SKILLS, BREATHING, AND HR SLOWED</paragraph> Medications busPIRone (BUSPAR) 15 MG tablet Take 15 mg by mouth 3 (three) times daily. Active escitalopram (LEXAPRO) 10 MG tablet Take 20 mg by mouth daily. Active mirtazapine (REMERON) 15 MG tablet Take 15 mg by mouth nightly. 11/24/19 21 Active CBD OIL Take by mouth daily. Active UNABLE TO FIND Take by mouth daily Med Name: DELTA 8 OIL FROM Oxynade PLANT PER PATIENT . Active traZODone (DESYREL) 50 MG tablet Take 50 mg by mouth daily. 05/26/19 24 Active albuterol HFA 108 (90 Base) MCG/ACT inhaler Inhale 2 puffs into the lungs every 6 (six) hours as needed for Wheezing. Active nitrofurantoin, macrocrystal-monoh ydrate, (MACROBID) 100 MG capsule Take 1 capsule by mouth 2 (two) times daily. 10 capsule 4 12:12 PM EDT 06/23/19 24 Active Additional Information Patient not taking.Reported on 07/21/2023 phenazopyridine (PYRIDIUM) 200 MG tablet Take 1 tablet by mouth 3 (three) times daily as needed for Pain. 21 tablet 1 4 12:12 PM EDT 06/23/19 24 Active Additional Information Patient not taking.Reported on 07/21/2023 polyethylene glycol (GLYCOLAX) 17 GM/SCOOP powder Mix 17 grams (one capful) in 4 ounces of liquid and take by mouth daily. 850 g 3 4 12:12 PM EDT 06/23/19 24 Active Additional Information Patient not taking.Reported on 07/21/2023 dicyclomine (BENTYL) 20 MG tablet Take 1 tablet by mouth every 6 (six) hours. 15 tablet 12/14/19 24 Active HYDROcodone-acetam inophen (NORCO) 5-325 MG per tablet Take 1 tablet by mouth every 6 (six) hours as needed for Pain. Max Daily Amount: 4 tablets 12 tablet 02/26/19 25 Active pantoprazole (PROTONIX) 40 MG tablet Take 1 tablet by mouth daily. 30 tablet 02/26/19 25 Active promethazine (PHENERGAN) 12.[address] 1 suppository rectally every 6 (six) hours as needed for Nausea. 12 suppository 03/02/19 25 Active dicyclomine (BENTYL) 20 MG tablet Take 1 tablet by mouth every 6 (six) hours. 12 tablet 05/15/19 25 Active ondansetron (ZOFRAN-ODT) 4 MG disintegrating tablet Take 1 tablet by mouth every 8 (eight) hours as needed for Nausea. 20 tablet 06/14/19 25 Active dicyclomine (BENTYL) 20 MG tablet Take 1 tablet by mouth every 6 (six) hours. 12 tablet 06/28/19 25 Active Active Problems Problem Noted Date Diagnosed Date Precordial chest pain 07/22/2023 Current smoker 07/22/2023 BMI 31.0-31.9,adult 07/22/2023 Mild intermittent asthma without complication History of depression 07/22/2023 Family history of premature CAD 07/22/2023 Intractable abdominal pain 06/22/2023 Ureteral stone 06/22/2023 Encounters Date Type Department Care Team Description 06/27/2024 1:45 PM EDT - 06/27/2024 3:51 PM EDT Emergency [facility] Emergency Department [address] [place] [address], [place] [address] Eliazar Lowery APRN Gastroenteritis (Primary Dx); Cannabis hyperemesis syndrome concurrent with and due to cannabis abuse Discharge Disposition: Home or Self Care 06/13/2024 8:06 PM EDT - 06/13/2024 11:21 PM EDT Emergency [facility] Emergency Department [address] [place] [address], [place] [address] Shwetha Mcclendon APRN Cannabis hyperemesis syndrome concurrent with and due to cannabis abuse (Primary Dx); Abdominal pain, unspecified abdominal location; Dehydration Discharge Disposition: Home or Self Care 06/06/2024 10:32 PM EDT - 06/07/2024 12:43 AM EDT Emergency [facility] Emergency Department [address] [place] [address] Eliazar Lowery APRN Cannabis hyperemesis syndrome concurrent with and due to cannabis abuse (Primary Dx) Discharge Disposition: Home or Self Care from Last 3 Months Social History Tobacco Use Types Packs/Day Years Used Date Smoking Tobacco: Every Day Cigarettes 1 10 Smokeless Tobacco: Never Tobacco Cessation:Ready to Q uit: Not Asked; Counseling Given: Not Answered Comments:VAPE Alcohol Use Standard Drinks/Week Comments Never [...] place to sleep or slept in a [facility] (including now)? No 06/26/2023 Sex and Gender Information Value Date Recorded Sex Assigned at Not on file Legal Sex Male 11:02 AM EDT Gender Identity Not on file Sexual Orientation Not on file Last Filed Vital Signs Vital Sign Reading [...] Mass Index 28.8 06/27/2024 1:41 PM EDT Plan of Treatment Health Maintenance Due Date Last Done Comments HPV Vaccine (1 - Male 3-dose series) 1997 Hepatitis B (HepB) Vaccine ( 1 of 3 - 19+ 3-dose series) 2001 Pneumococcal Vaccines 6-49 y o Risk (1 of 2 - PCV) 2001 Colon Cancer Risk Assessment 2022 Annual SDOH Screening 02/10/2024 Influenza Vaccine (#1) 2024 11/05/2022 Tdap/Td Vaccine >11 yo (2 - Td or Tdap) 02/09/2027 02/09/2017 Haemophilus Influenzae Type B (Hib) Vaccine Aged Out No longer eligible b ased on patient's age to complete this topic Hepatitis A (HepA) Vaccine Aged Out N o longer eligible based on patient's age to complete this topic Meningococcal ACWY Aged Out No longer eligible based on patient's age to complete this topic Polio (IPV) Aged Out No longer eligi ble based on patient's age to complete this topic Rotavirus (RV) Vaccine Aged Out No lo nger eligible based on patient's age to complete this topic Medical Devices Implanted Type Area Inspector Bicycle Device Identifier Shelf Expiration Date Model / Serial / Lot Graft Versa Tendon [id number] - [id number] Implanted:Qty: 1 on 12/25/2020 by Cynthia Vazquez MD at [facility] Grafts Left: Knee [employer] 10/18/2023 [id number] / [id number] / [id number] Eagle [employer] 5.5 [id number] - [id number] Implanted:Qty: 1 on 12/25/2020 by Cynthia Vazquez MD at [facility] Rods, bars, and connectors Left: Knee [employer] 06/08/2024 [id number] / / [id number] Screw Bio Comp 6x19 [id number] - [id number] Implanted:Qty: 2 on 12/25/2020 by Cynthia Vazquez MD at [facility] Screws, Bolts and Washers Left: Knee [employer] 01/09/2024 [id number] / / [id number] Stent Dbl Pigtl 4.5x24 [id number] - [id number] Implanted:Qty: 1 on 06/23/2023 by Tc Lewis MD at [facility] Urinary [employer] 02/22/2026 [id number] / / [id number] Procedures Procedure Name Priority Date/Time Associated Diagnosis Comments COMPREHENSIVE METABOLIC PANEL (CMP) STAT 06/27/2024 2:06 PM EDT CBC W/DIFF STAT 06/27/2024 2:06 PM EDT TOXICOLOGY SCREEN, URINE STAT 06/13/2024 8:53 PM EDT URINALYSIS WITH REFLEX STAT 8:52 PM EDT LIPASE STAT 06/13/2024 8:28 PM EDT COMPREHENSIVE METABOLIC PANEL (CMP) STAT 06/13/2024 8:28 PM EDT CBC W/DIFF STAT 06/13/2024 8:28 PM EDT TOXICOLOGY SCREEN, URINE STAT 06/06/2024 10:58 PM EDT URINALYSIS WITH REFLEX STAT 10:58 PM EDT COMPREHENSIVE METABOLIC PANEL (CMP) STAT 06/06/2024 10:57 PM EDT CBC W/DIFF STAT 06/06/2024 10:57 PM EDT ECG 12-LEAD Routine 06/06/2024 10:52 PM EDT from Last 3 Months Results * (ABNORMAL) .CBC w/Diff (06/27/2024 2:06 PM EDT) Only the most recent of3 resultswithin the time period is included. White Blood Cells 18.74(H) 4.50 - 11.00 10*3/uL 06/27/2024 2:11 PM EDT [facility] Red Blood Cells 4.89 4.50 - 5.90 10*6/uL 06/27/2024 2:11 PM EDT [facility] Hemoglobin 15.4 13.5 - 17.5 g/dL 06/27/2024 2:11 PM EDT [facility] Hematocrit 43.4 41.0 - 53.0 % 06/27/2024 2:11 PM EDT [facility] Mean Corpuscular Volume 88.8 80.0 - 100.0 fL 06/27/2024 2:11 PM EDT [facility] Mean Corpuscular Hemoglobin 31.5 26.0 - 34.0 pg 06/27/2024 2:11 PM EDT [facility] Mean Corpuscular Hemoglobin Concentration 35.5 31.0 - 37.0 g/dL 06/27/2024 2:11 PM EDT [facility] % Red Blood Cell Distribution Width 12.7 12.0 - 16.8 % 06/27/2024 2:11 PM EDT [facility] Platelet Count 330 140 - 440 10*3/uL 06/27/2024 2:11 PM EDT [facility] Mean Platelet Volume 9.4 8.4 - 12.4 fL 06/27/2024 2:11 PM EDT [facility] % Neutrophils 90.8(H) 45.0 - 80.0 % 06/27/2024 2:11 PM EDT [facility] % Lymphocytes 5.0(L) 15.0 - 50.0 % 06/27/2024 2:11 PM EDT [facility] % Monocytes 3.5 0.0 - 15.0 % 06/27/2024 2:[address] [facility] % Eosinophils 0.2 0.0 - 7.0 % 06/27/2024 2:11 PM EDT [facility] % Basophils 0.1 0.0 - 2.0 % 06/27/2024 2:11 PM EDT [facility] % Immature Granulocytes 0.4 0.0 - 1.0 % 06/27/2024 2:11 PM EDT [facility] % Nucleated RBCs 0.0 <=0 /100 WBCs 06/27/2024 2:[address] [facility] Absolute Neutrophil Count 17.02(H) 2.00 - 8.80 10*3/uL 06/27/2024 2:11 PM EDT [facility] Absolute Lymphocytes 0.93 0.70 - 5.50 10*3/uL 06/27/2024 2:11 PM EDT [facility] Absolute Monocytes 0.65 0.00 - 1.70 10*3/uL 06/27/2024 2:[address] [facility] Absolute Eosinophils 0.04 0.00 - 0.80 10*3/uL 06/27/2024 2:[address] [facility] Absolute Basophils 0.02 0.00 - 0.20 10*3/uL 06/27/2024 2:11 PM EDT [facility] Absolute Immature Granulocytes 0.08 0.00 - 0.10 10*3/uL 06/27/2024 2:11 PM EDT [facility] Blood VENOUS BLOOD SPECIMEN / Unknown Venipuncture / Unknown 06/27/2024 2:06 PM EDT 06/27/2024 2:09 PM EDT us Eliazar Aleksandra Lowery APRN LAB BLOOD ORDERABLES María ying Result [facility] [address] [place] [address] * (ABNORMAL) Comprehensive Metabolic Panel(CMP) (06/27/2024 2:06 PM EDT) Only the most recent of3 resultswithin the time period is included. Sodium 141 136 - 145 mmol/L 06/27/2024 2:31 PM EDT [facility] Comment:Excess protein and/o r lipids can falsely decrease sodium levels (pseudo hyponatremia). Potassium 3.9 3.5 - 5.1 mmol/L 06/27/2024 2:31 PM EDT [facility] Comment:Falsely elevated pot assium can occur in patients with high WBC or platelet counts. Chloride 108(H) 98 - 107 mmol/L 06/27/2024 2:31 PM EDT [facility] Comment:Falsely elevated chl oride levels can be seen in patients taking bromide containing medications. Carbon Dioxide 23 22 - 29 mmol/L 06/27/2024 2:31 PM EDT [facility] Anion Gap 10 5 - 13 mmol/L 06/27/2024 2:31 PM EDT [facility] Comment:Calculation: Na - (C l + CO2) Glucose, Random 110(H) 71 - 99 mg/dL 06/27/2024 2:31 PM EDT [facility] Blood Urea Nitrogen (BUN) 10 9 - 21 mg/dL 06/27/2024 2:31 PM EDT [facility] Creatinine, Blood 0.70(L) 0.73 - 1.18 mg/dL 06/27/2024 2:31 PM EDT [facility] BUN/Creatinine Ratio 14.3 RATIO 06/27/2024 2:31 PM EDT [facility] Estimated GFR (Cr) 119 >60 mL/min/1.7 3m2 06/27/2024 2:31 PM EDT [facility] Comment:eGFR calculated base d on IDMS traceable, enzymatic creatinine method using the CKD-EPI 2020 equation. Total Protein 7.5 6.4 - 8.2 g/dL 06/27/2024 2:31 PM EDT [facility] Albumin 4.4 3.5 - 5.2 g/dL 06/27/2024 2:31 PM EDT [facility] Globulin 3.1 1.5 - 4.5 g/dL 06/27/2024 2:31 PM EDT [facility] Albumin/Globulin Ratio 1.4 1.1 - 2.5 RATIO 06/27/2024 2:31 PM EDT [facility] Calcium 9.4 8.4 - 10.2 mg/dL 06/27/2024 2:31 PM EDT [facility] Total Bilirubin 1.0 0.2 - 1.2 mg/dL 06/27/2024 2:31 PM EDT [facility] AST/SGOT 19 5 - 34 U/L 06/27/2024 2:31 PM EDT [facility] ALT/SGPT 25 0 - 55 U/L 06/27/2024 2:31 PM EDT [facility] Alkaline Phosphatase 88 40 - 150 U/L 06/27/2024 2:31 PM EDT [facility] Blood VENOUS BLOOD SPECIMEN / Unknown Venipuncture / Unknown 06/27/2024 2:06 PM EDT 06/27/2024 2:09 PM EDT us Eliazar Lowery APRN LAB BLOOD ORDERABLES María l Result [facility] [address] [place] [address] * (ABNORMAL) Toxicology Screen, Urine (06/13/2024 8:53 PM EDT) Only the most recent of2 resultswithin the time period is included. Amphetamines, Qualitative, Urine Negative Negative 06/13/2024 9:17 PM EDT [facility] Comment:Screening cut off 50 0 ng/mL. This assay has poor sensitivity for methylphenidate (eg Ritalin); a methylphenidate specific assay is needed to monitor compliance with these medications. Barbiturates, Qualitative, Urine Negative Negative 06/13/2024 9:17 PM EDT [facility] Comment:Screening cut off 20 0 ng/mL. Benzodiazepines, Qualitative, Urine Negative Negative 06/13/2024 9:17 PM EDT [facility] Comment:Screening cut off 20 0 ng/mL. Cannabinoids, Qualitative, Urine Positive(A) Negative 06/13/2024 9:17 PM EDT [facility] Comment:Screening cut off 50 ng/mL. Cocaine, Qualitative, Urine Negative Negative 06/13/2024 9:17 PM EDT [facility] Comment:Screening cut off 15 0 ng/mL. Opiates, Qualitative, Urine Negative Negative 06/13/2024 9:17 PM EDT [facility] Comment:Screening cut off 30 0 ng/mL. This assay has poor sensitivity for synthetic opioids like oxycodone, fentanyl, etc. Urine (Urine, Voided) Non-blood Collection / Unknown 06/13/2024 8:53 PM EDT 06/13/2024 9:04 PM EDT Narrative [facility] - 06/13/2024 9:17 PM EDT Testing for medical purposes only. Positive results are not automatically confirmed. us Shwetha Mcclendon APRN URINE ORDERABLES Final Result [facility] [address] [phone] * Urinalysis with Reflex (06/13/2024 8:52 PM EDT) Only the most recent of2 resultswithin the time period is included. Color, Urine Light-Yellow 06/13/2024 9:09 PM [facility] Clarity, Urine Clear 06/13/2024 9:09 PM [facility] Specific [place], Urine 1.010 1.005 - 1.030 [arb'U] 06/13/2024 9:09 PM [facility] pH, Urine 6.5 5.0 - 9.0 [pH] 06/13/2024 9:09 PM [facility] Protein, Urine Negative Negative, 10 mg/dL, 15 mg/dL, 20 mg/dL, Trace 06/13/2024 9:09 PM [facility] Glucose, Urine Negative Negative 06/13/2024 9:09 PM [facility] Ketones, Urine Negative Negative 06/13/2024 9:09 PM [facility] Bilirubin, Urine Negative Negative mg/dL 06/13/2024 9:09 PM [facility] Blood, Urine Negative Negative [arb'U] 06/13/2024 9:09 PM [facility] Nitrite, Urine Negative Negative 06/13/2024 9:09 PM [facility] Urobilinogen, Urine Normal Normal, 0.2 E.U./dL, 1.0 E.U./dL 06/13/2024 9:09 PM [facility] Leukocyte Esterase, Urine Negative Negative 06/13/2024 9:09 PM [facility] Reflex Microscopic? 06/13/2024 9:09 PM [facility] Comment:Macroscopic only per formed Urine MID-STREAM URINE SPECIMEN / Unknown Non-blood Collection / Unknown 06/13/2024 8:52 PM EDT 06/13/2024 9:01 PM EDT us Shwetha Mcclendon HI RANGER OPERATOR URINE ORDERABLES Final Result [facility] [address] [place] [address] * Lipase (06/13/2024 8:28 PM EDT) Lipase 21 0 - 59 U/L 06/13/2024 8:52 PM EDT [facility] Blood VENOUS BLOOD SPECIMEN / Unknown Venipuncture / Unknown 06/13/2024 8:28 PM EDT 06/13/2024 8:32 PM EDT us Shwetha Mcclendon APRN LAB BLOOD ORDERABLES Final Re sult Performing Organization Address [facility]/ZIP Co de Phone Number [facility] [address] [place] [address] * EKG 12 lead (06/06/2024 10:52 PM EDT) 06/06/2024 10:5 2 PM EDT Narrative [facility] - 06/07/2024 8:09 AM EDT CARDIOLOGY REPORT FACILITY: [facility] PATIENT NAME/: NEHEMIAH LOPEZ 1980 UNIT/AGE/GENDER: AGE: 43 YR GENDER: M UNIT NUMBER: [id number] ACCESSION NUMBER: [id number] DATE OF EXAM: 06/06/2024 22:52 EXAMINATION(S): ECG 12-LEAD FINAL REPORT Procedure: ELECTROCARDIOGRAM RESULT Heart Rate 61 P-R Interval 135 ms QRS Interval 91 ms QT Interval 394 ms QTC Interval 396 ms P [place] 49 deg QRS [place] 37 deg T Wave [place] 49 deg DATE: 06/06/2024 22:52 Sinus rhythm Poor R-wave Progression Summary: Normal ECG Electronically signed by ELI VIERA 06/07/2024 08:08 Procedure Note Jamie Khan MD - 06/07/2024 CARDIOLOGY REPORT FACILITY: [facility] PATIENT NAME/: NEHEMIAH LOPEZ 1980 UNIT/AGE/GENDER: AGE: 43 YR GENDER: M UNIT NUMBER: [id number] ACCESSION NUMBER: [id number] DATE OF EXAM: 06/06/2024 22:52 EXAMINATION(S): ECG 12-LEAD FINAL REPORT Procedure: ELECTROCARDIOGRAM RESULT Heart Rate 61 P-R Interval 135 ms QRS Interval 91 ms QT Interval 394 ms QTC Interval 396 ms P [place] 49 deg QRS [place] 37 deg T Wave [place] 49 deg DATE: 06/06/2024 22:52 Sinus rhythm Poor R-wave Progression Summary: Normal ECG Electronically signed by ELI VIERA 06/07/2024 08:08 us Eliazar Lowery APRN ECG ORDERABLES Final Res ult [place] [facility] from Last 3 Months Insurance [facility] Advance Directives * Full Code (Latest Code Status on File) Date Activated Date Inactivated Comments 06/22/2023 7:22 PM 06/25/2023 3:51 PM Care Teams Grey Roll Worker Relationship Specialty Start Date End Date Kyra Bolton [address] [facility] [address] [place] [address] PCP - General Internal Medicine 07/01/23
--- OUTSIDE RECORDS SUMMARY | 2024-08-23 16:16 | XMS_ITS | Encounter Summary ---
[facility] Address [address] [place] [address] Care Team Providers Care Coloring Machine Operator Name Role Phone Kyra Bolton MD Primary Care Provide r Reason for Visit * Reason Onset Date Comments BOWEL PREP 07/20/2024 Encounter Details Date Type Department Care Team (Late st Contact Info) Description 07/20/2024 Telephone [facility] [address] [facility] [address] [place] [address] David Olivarez MD [address] [facility] [address] [place] [address] BOWEL PREP Social History Tobacco Use Types Packs/Day Years [...] encounter Miscellaneous Notes * Telephone Encounter - Vale Jacobson RegSched Rep - 07/20/2024 11:49 AM EDT SPOKE TO PATIENT ABOUT THE CONCERNS HE HAD * Telephone Encounter - Cyndee Bazan RegSched Rep - 07/20/2024 11:20 AM EDT PT CALLED WITH CONCERNS ABOUT HIS BOWELS NOT MOVING WHILE TAKING IS PREP BEVEL MILL OPERATOR TO CALL PT AND GO OVER IT WITH HIM documented in this encounter Plan of Treatment Upcoming Encounters Date Type Department Care Team (Late st Contact Info) Description 09/14/2024 9:40 AM EDT Lab [facility] [address] [place] [id number] 09/21/2024 2:45 PM EDT Office Visit [facility] [address] [place] [address] Kyra Bolton MD [address] [place] [address] documented as of this encounter Visit Diagnoses Not on filedocumented in this encounter Care Teams Coloring Machine Operator Relationship Specialty Start Date End Date Kyra Bolton MD [address] [place] [address] PCP - General Internal Medicine & Pediatrics 11/05/22 documented as of this encounter
--- OUTSIDE RECORDS SUMMARY | 2024-08-23 16:16 | XMS_ITS | Encounter Summary ---
[facility] Address [address] [place] [address] Care Team Providers Care Room Inspector Name Role Phone Kyra Bolton MD Primary Care Provide r Encounter Details Date Type Department Care Team (Late st Contact Info) Description 07/25/2024 Results Follow-Up [facility] [address] [place] [address] David Olivarez MD [address] [facility] [address] [place] [address] Social History Tobacco Use Types Packs/Day Years [...] on file documented as of this encounter Progress Notes * David Olivarez MD - 07/25/2024 1:35 AM EDT - C/s for LLQ abdominal pain - Findings/path: 3 sub-cm tubular adenomas removed, 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 - POC: repeat c/s in 3 years with Plenvu prep documented in this encounter Plan of Treatment Upcoming Encounters Date Type Department Care Team (Late st Contact Info) Description 09/14/2024 9:40 AM EDT Lab [facility] [address] [place] [address] 09/21/2024 2:45 PM EDT Office Visit [facility] [address] [place] [address] Kyra Bolton MD [address] [place] [address] documented as of this encounter Visit Diagnoses Not on filedocumented in this encounter Care Teams Room Inspector Relationship Specialty Start Date End Date Kyra Bolton MD [address] [place] [address] PCP - General Internal Medicine & Pediatrics 11/05/22 documented as of this encounter
--- OUTSIDE RECORDS SUMMARY | 2024-08-23 16:16 | XMS_ITS | Encounter Summary ---
Author Organization [facility] Address [address] [place] [address] Care Team Providers Care Supervisor Heading Name Role Phone Kyra Bolton MD Primary Care Provide r Encounter Details Date Type Department Care Team (Late st Contact Info) Description 08/08/2024 Results Follow-Up [facility] [address] [facility] [address] [place] [address] Kyra Bolton MD [address] [facility] [address] [place] [address] Social History Tobacco Use Types Packs/Day [...] Info) Description 09/14/2024 9:40 AM EDT Lab [facility] [address] [place] [address] 09/21/2024 2:45 PM EDT Office Visit [facility] [address] [place] [address] Kyra Bolton MD [address] [place] [address] documented as of this encounter Visit Diagnoses Not on filedocumented in this encounter Care Teams Supervisor Heading Relationship Specialty Start Date End Date Kyra Bolton MD [address] [place] [address] PCP - General Internal Medicine & Pediatrics 11/05/22 documented as of this encounter
--- OUTSIDE RECORDS SUMMARY | 2024-08-23 16:16 | XMS_ITS | Clinical Summary ---
[facility] Address [address] [place] [address] Care Team Providers Care Sausage Smoker Name Role Phone Kyra Bolton MD Primary Care Provide r Allergies Active Allergy Reactions Criticality Noted Date Comments Banana Anaphylaxis High 10/15/2022 Cefaclor Rash Low 08/23/2020 Ciclopirox Hives Medium 12/14/2020 Melon Anaphylaxis High 10/15/2022 Penicillins Hives Medium 12/14/2020 Prochlorperazine Anxiety,Rash Low 06/22/2023 Teeth clenching Hinton Anaphylaxis High 10/15/2022 Sumatriptan Unknown - Low Severity High 12/14/2020 PT STATES MOTOR SKILLS, BREATHING, AND HR SLOWED Medications CBD (cannabidiol) oral oil Take by mouth Daily. Active ondansetron ODT (ZOFRAN-ODT) 4 MG disintegrating tablet Take 1 tablet by mouth. 025 Active Symbicort 160-4.5 MCG/ACT inhaler Inhale 2 puffs 2 (Two) Times a Day. 025 Active pantoprazole (PROTONIX) 40 MG EC tabletIndications :Eosinophilic esophagitis Take 1 tablet by mouth 2 (Two) Times a Day. 180 tablet 3 025 Active escitalopram (LEXAPRO) 20 MG tabletIndications :Anxiety and depression TAKE 1 TABLET BY MOUTH DAILY 30 tablet 2 025 Active NON FORMULARY Take by mouth Daily. Kratom Mitragynine PO Active traZODone (DESYREL) 100 MG tabletIndications :Sleep difficulties TAKE 1 TABLET BY MOUTH EVERY NIGHT 30 tablet 1 025 Active albuterol sulfate HFA 108 (90 Base) MCG/ACT inhalerIndication s:Wheezing INHALE 2 PUFFS BY MOUTH EVERY 4 HOURS NEEDED FOR WHEEZING 90 g 025 Active Ventolin HFA 108 (90 Base) MCG/ACT inhalerIndication s:Wheezing INHALE 2 PUFFS BY MOUTH EVERY 4 HOURS NEEDED FOR WHEEZING 90 g 025 2024 Discontinued traZODone (DESYREL) 100 MG tabletIndications :Sleep difficulties Take 1 tablet by mouth Every Night. 30 tablet 1 025 2024 Discontinued Active Problems Problem Noted Date Diagnosed Date Left lower quadrant abdominal pain 07/18/2024 Encounter for screening colonoscopy 07/18/2024 Nausea and vomiting 12/24/2023 Eosinophilic esophagitis 12/24/2023 Epigastric abdominal pain 12/24/2023 History of esophageal stricture 10/08/2021 Encounters Date Type Department Care Team Description 08/16/2024 Refill [facility] [address] [place] [address] Kyra Bolton MD Wheezing 08/14/2024 Refill [facility] [address] [place] [address] Kyra Bolton MD Sleep difficulties 08/08/2024 Results Follow-Up [facility] [address] [place] [address] Kyra Bolton MD 08/04/2024 10:33 AM EDT - 08/04/2024 11:59 PM EDT Hospital Encounter [facility] [address] [place] [address] Kyra Bolton MD Other chronic gastritis with hemorrhage; Nausea and vomiting, unspecified vomiting type; Cannabis hyperemesis syndrome concurrent with and due to cannabis dependence Discharge Disposition: Home or Self Care 08/02/2024 Refill [facility] [address] [place] [address] Kyra Bolton MD Sleep difficulties 07/25/2024 Results Follow-Up [facility] [place] [address] [place] [address] David Olivarez MD 07/22/2024 Refill [facility] [address] [place] [address] Kyra Bolton MD Anxiety and depression 07/21/2024 9:10 AM EDT Anesthesia Event [facility] [place] [address] [place] [address] Mariel Ferreira, Kinza Najera, RECEIVABLE MANAGER 07/21/2024 8:45 AM EDT - 07/21/2024 9:15 AM EDT Surgery [facility] [place] OR [address] [place] [address] David Olivarez MD COLONOSCOPY WITH POLYPECTOMY [81200 (CPT )] 07/21/2024 7:19 AM EDT - 07/21/2024 10:21 AM EDT Hospital Encounter [facility] [place] [address] [place] [address] David Olivarez MD Left lower quadrant abdominal pain; Encounter for screening colonoscopy Discharge Disposition: Home or Self Care 07/21/2024 Travel 07/20/2024 Telephone [facility] [address] [place] [address] David Olivarez MD BOWEL PREP 07/20/2024 Refill [facility] [address] [place] [address] Kyra Bolton MD Anxiety and depression 07/18/2024 1:00 PM EDT Office Visit [facility] [address] [place] [address] Antonia Marroquin APRN Left lower quadrant pain (Primary Dx); Encounter for screening colonoscopy 07/18/2024 Prep for Surgery [facility] [place] [facility] [place] [address] [place] [address] Antonia Marroquin APRN Left lower quadrant abdominal pain (Primary Dx); Encounter for screening colonoscopy 07/18/2024 Travel 07/07/2024 Refill [facility] [address] [place] [address] Kyra Bolton MD Anxiety and depression 06/21/2024 1:45 PM EDT Office Visit [facility] [address] [place], [place] [address] Kyra Bolton MD Esophagitis with gastritis (Primary Dx); Leukocytosis, unspecified type; Sleep difficulties; Other chronic gastritis with hemorrhage; Eosinophilic esophagitis; Nausea and vomiting, unspecified vomiting type; Cannabis hyperemesis syndrome concurrent with and due to cannabis dependence; Tobacco dependence; Anxiety and depression 06/21/2024 Travel 06/08/2024 Telephone [facility] [address] [place], [place] [address] Kyra Bolton MD Med Dose Change 05/27/2024 Telephone [facility] [address] [place], [place] [address] Antonia Marroquin APRN from Last 3 Months Immunizations Immunization Administration Dates Next Due COVID-19 (PFIZER) Purple Cap Monovalent 12/19/19 21 Fluzone (or Fluarix & Flulaval for VFC) >6mos Tdap 02/09/2017 Family History Medical History Relation Name Comments No Known Problems Daughter Alcohol abuse Father César Perea in 1999 Drug abuse Father César Perea Early Father César Perea Heart disease Father César Perea Breast cancer Maternal Grandmother Alla Fix COPD Maternal Grandmother Alla Fix Cancer Maternal Grandmother Alla Fix Mental illness Maternal Grandmother Alla Fix Developmental Disability Maternal Uncle Warren Wiseman Learning disabilities Maternal Uncle Warren Wiseman Anxiety disorder Mother Miguel Londono Breast cancer Mother Miguel Londono Cancer Mother Miguel Londono Depression Mother Miguel Londono Mental illness Mother Miguel Londono Mitral valve prolapse Sister 1 Depression Sister 2 Mario Pacheco Drug abuse Sister 2 Mario Pacheco Relation Name Status Comments Daughter Father César Perea Alive fro m drug overdose Maternal Grandmother Alla Fix Alive Maternal Uncle Warren Wiseman Alive Mother Miguel Londono Alive Sister 1 Sister 2 Mario Pacheco Alive Social History Tobacco Use Types Packs/Day Years [...] oz) 07/21/2024 7:33 A M EDT Height 175.3 cm (5' 9.02 ) 07/18/2024 12:49 PM E DT Body Mass Index 26.89 07/18/2024 12:49 PM EDT Plan of Treatment Upcoming Encounters Date Type Department Care Team (Late st Contact Info) Description 09/14/2024 9:40 AM EDT Lab [facility] [address] [place] [address] 09/21/2024 2:45 PM EDT Office Visit [facility] [address] [place] [address] Kyra Bolton MD [address] [place] [address] Health Maintenance Due Date Last Done Comments Pneumococcal Vaccine 0-49 (1 of 2 - PCV) 2001 ANNUAL PHYSICAL 06/04/2021 COVID-19 Vaccine (2 - 2023- season) 10/11/202310/2020 INFLUENZA VACCINE 11/09/2024 11/05/2022 LIPID PANEL 12/21/2024 12/22/2023, 11/05/2022 TDAP/TD VACCINES (2 - Td or Tdap) 02/09/2027 018 HEPATITIS C SCREENING Completed 11/05/2022 Medical Devices Implanted Type Area Stippler Device Identifier Shelf Expiration Date Model / Serial / Lot L Knee Implant Implant Dev Clip Endo [id number] Contrl Rot 235cm - [id number] Implanted:Qty : 3 on 07/21/2024 by David Olivarez MD at [facility] Implant N/A: Colon jigl [id number] 04/22/2027 [id number] / / [id number] Procedures Procedure Name Priority Date/Time Associated Diagnosis Comments NM GASTRIC EMPTYING Routine 08/04/2024 1 :49 PM EDT Other chronic gastritis with hemorrhage Nausea and vomiting, unspecified vomiting type Cannabis hyperemesis syndrome concurrent with and due to cannabis dependence TISSUE PATHOLOGY EXAM Routine 07/21/2024 9:27 AM EDT Left lower quadrant abdominal pain Encounter for screening colonoscopy AL COLONOSCOPY W/BIOPSY SINGLE/MULTIPLE 07/21/2024 9:10 AM EDT Left lower quadrant abdominal pain Encounter for screening colonoscopy COLONOSCOPY 07/21/2024 9:07 AM EDT SCANNED - TELEMETRY 07/21/2024 LIPID PANEL WITH LDL/HDL RATIO Routine 12/22/2023 8:53 AM EST Prediabetes Mixed hyperlipidemia HEPATITIS C ANTIBODY Routine 11/05/2022 2:31 PM EDT Healthcare maintenance from Last 3 Months or Most Recently Relevant to Health Maintenance Results * NM Gastric Emptying (08/04/2024 1:49 PM EDT) Anatomical Region Laterality Modality Body N/A Nuclear Medicine 08/04/2024 2:01 PM EDT Impressions 08/04/2024 2:21 PM EDT Impression: No significant gastroparesis/significant retention. Electronically Signed: Chandan Valadez MD 08/04/2024 2:21 PM EDT Workstation ID: [id number] Narrative 08/04/2024 2:21 PM EDT NM GASTRIC [...] MD 08/04/2024 2:21 PM EDT Workstation ID: [id number] us Krya Bolton MD [facility] [place] ORDERABLES Fin al Result * Tissue Pathology Exam (07/21/2024 9:27 AM EDT) Case Report Surgical Pathology Report Case: [id number] Authorizing Provider: aDvid Olivarez MD Collected: 07/21/2024 09:27 AM Ordering Location: [facility] Received: 07/21/2024 09:58 AM OR Pathologist: Wilfrid Alicea MD Specimens: 1) - Large Intestine, Right / Ascending Colon 2) - Large Intestine, Transverse Colon, x2 3) - Large Intestine, Transverse Colon, x2 07/22/2024 10:33 AM EDT [facility] Final Diagnosis 1. Colon, ascending, biopsy: A. Fragments of tubular adenoma. 2. Colon, transverse, biopsy: A. Fragments of tubular adenoma. 3. Colon, transverse, biopsy: A. Fragments of tubulovillous adenoma. 07/22/2024 10:33 AM EDT [facility] at 1033 EDT Gross [...] smaller bisected polyps mb/uso/mec 07/22/2024 10:33 AM EDT [facility] Microscopic Description Unless gross only is specified, the final diagnosis for each specimen is based on microscopic examination of tissue. 07/22/2024 10:33 AM EDT [facility] Polyp Ascending colon structure / Unknown 07/21/2024 9:27 AM EDT 07/21/2024 9:58 AM EDT Other (qualifier value) Transverse colon structure / Unknown 07/21/2024 9:32 AM EDT 07/21/2024 9:58 AM EDT Other (qualifier value) Transverse colon structure / Unknown 07/21/2024 9:38 AM EDT 07/21/2024 9:58 AM EDT David Olivarez MD PATHOLOGY/CYTOLOGY ORDERABLES Final Result [facility]
[address] [place] [address], * Colonoscopy (07/21/2024 9:07 AM EDT) David Olivarez MD INTERFACE NEEDS Final Result * Telemetry Scan (07/21/2024) [facility] ECG ORDERABLES Final Result * (ABNORMAL) Lipid Panel With LDL / HDL Ratio (12/22/2023 8:53 AM EST) Total Cholesterol 184 0 - 200 mg/dL [facility] Comment: Cholesterol Reference Ranges (U.S. Department of Health and Human Services ATP III Classifications) Desirable <200 mg/dL Borderline High 200-239 mg/dL High Risk >240 mg/dL Triglyceride Reference Ranges (U.S. Department of Health and Human Services ATP III Classifications) Normal <150 mg/dL Borderline High 150-199 mg/dL High 200-499 mg/dL Very High >500 mg/dL HDL Reference Ranges (U.S. Department of Health and Human Services ATP III Classifications) Low <40 mg/dl (major risk factor for CHD) High >60 mg/dl ('negative' risk factor for CHD) LDL Reference Ranges (U.S. Department of Health and Human Services ATP III Classifications) Optimal <100 mg/dL Near Optimal 100-129 mg/dL Borderline High 130-159 mg/dL High 160-189 mg/dL Very High >189 mg/dL Triglycerides 242(H) 0 - 150 mg/dL [facility] HDL Cholesterol 37(L) 40 - 60 mg/dL [facility] VLDL Cholesterol Morris 42(H) 5 - 40 mg/dL [facility] LDL Chol Calc (NIH) 105(H) 0 - 100 mg/dL [facility] LDL/HDL RATIO 2.66 [facility] Blood 12/22/2023 8:53 AM EST 12/22/2023 Narrative [facility] ([facility]) - 12/23/2023 3:08 AM EST Performed at: [address] [place] [address] [id number] Wool Puller: Vasu Short MD, Phone: [phone] Patient Fasting: Y Kyra Bolton MD LAB BLOOD ORDERABLES Final Result [facility] (AMBULATORY) [address] [place] [address], [facility] [address] [place] [address], * Hepatitis C antibody (11/05/2022 2:31 PM EDT) Pathologist [facility] Hep C Virus Ab Non Reactive Non Reactive [facility] Comment: HCV antibody alone does not differentiate between previously resolved infection and active infection. Equivocal and Reactive HCV antibody results should be followed up with an HCV RNA test to support the diagnosis of active HCV infection. Blood 11/05/2022 2:31 PM EDT 11/05/2022 Narrative [facility] (AMBULATORY) - 11/06/2022 7:10 AM EDT Performed at: 01 - [facility] [address] [place], [place] [id number] Wool Puller: Jefe Soria PhD, Phone: [phone] Patient Fasting: Y us Kyra Bolton MD LAB BLOOD ORDERABLES Final Result [facility] (AMBULATORY) [address] [place] [address], [place] [phone] [facility] [address] [place] [address], [place] [phone] from Last 3 Months or Most Recently Relevant to Health Maintenance [facility] Care Teams Sausage Smoker Relationship Specialty Start Date End Date Kyra Bolton MD [address] [facility] [address] [place] [id number] PCP - General Internal Medicine & Pediatrics 11/05/22
--- OUTSIDE RECORDS SUMMARY | 2024-08-23 16:16 | XMS_ITS | Encounter Summary ---
[facility] Address [address] [place] [address] Care Team Providers Care Butter Melter Name Role Phone Kyra Bolton MD Primary Care Provide r Reason for Visit * Reason Comments Med Refill Encounter Details Date Type Department Care Team (Late st Contact Info) Description 02/04/2024 Refill [facility] [address] [facility] [address] [place] [address] Kyra Bolton MD [address] [facility] [address] [place] [address] Wheezing; Tobacco use Social History Tobacco Use Types Packs/Day Years [...] Present no 01/28/2024 PHQ-2 Answer Date Recorded Retired PHQ-9: Brief Depression Severity Measure Score 0 07/29/2023 Sex and Gender Information Value Date Recorded Sex Assigned at Male 07/18/2024 12:20 PM EDT Legal Sex Male 10:24 AM EDT Gender Identity Not on file Sexual Orientation Not on file documented as of this encounter Miscellaneous Notes * Telephone Encounter - Martha James MA - 02/05/2024 7:43 AM EST The original prescription was discontinued on 12/24/2023 by Antonia Marroquin APRN for the followingreason: *Therapy completed. Rx Refill Note Requested Prescriptions Pending Prescriptions Disp Refills Symbicort 160-4.5 MCG/ACT inhaler [Pharmacy Med Name: SYMBICORT 160/4.5MCG (120 ORAL INH)] 10.2 g 0 Sig: INHALE 2 PUFFS BY MOUTH TWICE DAILY Last office visit with prescribing clinician: 12/22/2023 Last telemedicine visit with prescribing clinician: Visit date not found Next office visit with prescribing clinician: Visit date not found Would you like a call back once the refill request has been completed: [] Yes [] No If the office needs to give you a call back, can they leave a voicemail: [] Yes [] No Martha James MA 02/05/24, 07:43 EST documented in this encounter Plan of Treatment Upcoming Encounters Date Type Department Care Team (Late st Contact Info) Description 09/14/2024 9:40 AM EDT Lab [facility] [address] [place] [address] 09/21/2024 2:45 PM EDT Office Visit [facility] [address] [place] [address] Kyra Bolton MD [address] [place] [address] documented as of this encounter Visit Diagnoses Diagnosis Wheezing Tobacco use documented in this encounter Care Teams Butter Melter Relationship Specialty Start Date End Date Kyra Bolton MD [address] [place] [address] PCP - General Internal Medicine & Pediatrics 11/05/22 documented as of this encounter
--- OUTSIDE RECORDS SUMMARY | 2024-08-23 16:16 | XMS_ITS | Encounter Summary ---
Author Organization [facility] Address [address] [place] [address] Care Team Providers Care Non Licensed Nuclear Equipment Operator Name Role Phone Kyra Bolton MD Primary Care Provide r Reason for Visit * Reason Onset Date Comments Med Dose Change 06/08/2024 Encounter Details Date Type Department Care Team (Late st Contact Info) Description 06/08/2024 Telephone [facility] [address] [facility] [address] [place] [address] Kyra Bolton MD [address] [facility] [address] [place] [address] Med Dose Change Social History Tobacco Use Types Packs/Day Years [...] encounter Miscellaneous Notes * Telephone Encounter - Abigail Titus RegSched Rep - 06/13/2024 11:43 AM EDT Appt with provider schedule 06/21/2024 Also added to wait list if anything becomes available sooner * Telephone Encounter - Kyra Bolton MD - 06/10/2024 5:17 PM EDT Needs OV * Telephone Encounter - Yesenia Olivas RegSched Rep - 06/08/2024 4:13 PM EDT Caller: Josias Perea Relationship: Self Best call back number: [phone] What medication are you requesting: TRAZADONE What are your current symptoms: WANTS TO INCREASE DOSAGE FROM 50 MG TO HELP HIM SLEEP NOT BEEN ABLETO SLEEP ON THE LOWER DOSE PLEASE CALL AND ADVISE If a prescription is needed, what is your preferred pharmacy and phone number: [id number] - [place], [place] - [address] [facility] & [address] - [phone] PH - [phone] FX documented in this encounter Plan of Treatment Upcoming Encounters Date Type Department Care Team (Late st Contact Info) Description 09/14/2024 9:40 AM EDT Lab [facility] [address] [place] [address] 09/21/2024 2:45 PM EDT Office Visit [facility] [address] [place] [address] Kyra Bolton MD [address] [place], [place] [id number] documented as of this encounter Visit Diagnoses Not on filedocumented in this encounter Care Teams Non Licensed Nuclear Equipment Operator Relationship Specialty Start Date End Date Kyra Bolton MD [address] [place] [address] PCP - General Internal Medicine & Pediatrics 11/05/22 documented as of this encounter
--- OUTSIDE RECORDS SUMMARY | 2024-08-23 16:16 | XMS_ITS | Encounter Summary ---
[facility] [address] [place] [address] Care Team Providers Care Kiln Feeder Name Role Phone Kyra Bolton MD Primary Care Provide r Reason for Visit * Reason Comments Med Refill Encounter Details Date Type Department Care Team (Late st Contact Info) Description 08/14/2024 Refill [facility] [address] [facility] [address] [place] [address] Kyra Bolton MD [address] [facility] [address] [place] [address] Sleep difficulties Social History Tobacco Use [...] Telephone Encounter - Martha James MA - 08/15/2024 10:15 AM EDT Rx Refill Note Requested Prescriptions Pending Prescriptions Disp Refills traZODone (DESYREL) 100 MG tablet [Pharmacy Med Name: TRAZODONE 100MG TABLETS] 30 tablet 1 Sig: Take 1 tablet by mouth Every Night. Last office visit with prescribing clinician: 06/21/2024 Last telemedicine visit with prescribing clinician: 03/04/2024 Next office visit with prescribing clinician: 09/21/2024 Would you like a call back once the refill request has been completed: [] Yes [] No If the office needs to give you a call back, can they leave a voicemail: [] Yes [] No Martha James MA 08/15/24, 10:15 EDT documented in this encounter Plan of Treatment Upcoming Encounters Date Type Department Care Team (Late st Contact Info) Description 09/14/2024 9:40 AM EDT Lab [facility] [address] [place] [address] 09/21/2024 2:45 PM EDT Office Visit [facility] [address] [place] [address] Kyra Bolton MD [address] [place] [address] documented as of this encounter Visit Diagnoses Diagnosis Sleep difficulties documented in this encounter Care Teams Kiln Feeder Relationship Specialty Start Date End Date Kyra Bolton MD [address] [place] [address] PCP - General Internal Medicine & Pediatrics 11/05/22 documented as of this encounter
--- NOTE | 2024-08-23 16:21 | ED_ITS ---
<Statement entered by Julius Pritchett MD - 08/23/24 23:24> I was consulted by the CONNER, and we discussed the complexity of the problems being addressed. I approved the treatment and management plan for this patient's care in the emergency department, thus performing a substantive portion of the medical decision making. Julius Pritchett MD, GUILLAUME, FACEP Discharge Plan Disposition Patient Disposition: Home, Self-Care Condition: Good Prescriptions Prescriptions: New ondansetron 4 mg tablet,disintegrating 4 mg PO Q6H PRN (Reason: nausea and vomiting) Qty: 10 0RF No Action rabdwdspjhrpgtk-rknydbpmo-MO 473 ML syrup 10 ml PO QID PRN (Reason: Cough) Qty: 240 0RF tizanidine 4 MG tablet 4 mg PO TID 20 Days Qty: 60 2RF azithromycin 250 MG tablet 250 mg PO DIRECTED Qty: 6 0RF Rx Instructions: Take two (2) tablets on day #1, then one (1) tablet day #2 thru #5 methylprednisolone 4 MG tablet 4 mg PO DIRECTED Qty: 21 0RF Rx Instructions: Take as directed on package instructions fluticasone propionate 120 SPR/BOT bottle 1 spr NS DAILY Qty: 1 0RF Rx Instructions: each nostril daily Referrals Follow up/Referrals: Provider,Referral, [Primary Care Provider, Medical] - See instructions Activity Restrictions/Add. Instructions Additional Instructions/Restrictions: Please return to the emergency department any worsening signs or symptoms, please use your antinausea medicine as prescribed, I recommend progressing your diet as tolerated, please follow-up with your PCP and GI doctor. Clinical Impressions Clinical Impression: Abdominal pain, Nausea & vomiting, History of marijuana use Instructions Patient Instructions: DI for Acute Abdominal Pain Print Language Print Language: Georgian Discharge ED Provider: Julius Pritchett General Adult HPI General Chief complaint: Abdominal Pain Stated complaint: ab pain Time Seen by Provider: 08/23/24 16:14 Mode of Arrival: EMS Source of Information: Patient Description of Symptoms (Recalled from ER Triage Doc. by RN): Pt in by EMS due to severe lower abdominal pain with nausea and vomiting. Pt rates pain 10/10 History of Present Illness HPI narrative: 43-year-old male presents emergency department via EMS for lower abdominal pain that started around 2 AM , last night, associate with nausea and vomiting, patient has had 2-day history of diarrhea, patient admits to subjective fever chills, denies chest pain denies shortness of breath, denies cough congestion, denies any melena hematochezia hematemesis, no hemoptysis, no urinary type symptomatology, patient is a current everyday smoker, denies any alcohol use, admits to current everyday marijuana use, last use was last night, initial triage vitals are unremarkable, other past medical history is consistent with GERD, MDD, CYNTHIA, history of illicit drug use, 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 Onset (ago): hour(s) Related Data Previous Rx's ?Medication ?Instructions ?Recorded orbnrpanoagpgqp-rmbjcyytcccqwxc-CN 10 ml PO QID PRN [facility] #240 mL 10/05/17 2 mg-30 mg-10 mg/5 mL oral syrup tizanidine 4 mg tablet 4 mg PO TID 20 days #60 tabs 06/24/19 azithromycin 250 mg tablet 250 mg PO DIRECTED #6 ta bs 11/30/19 fluticasone propionate 50 1 spr NS DAILY ##1 11/30/19 mcg/actuation nasal spray,suspension methylprednisolone 4 mg tablet 4 mg PO DIRECTED #21 tabs 11/30/19 ondansetron 4 mg disintegrating 4 mg PO Q6H PRN nausea and 08/23/24 tablet vomiting #10 tabs Allergies Allergy/AdvReac Type Severity Reaction Status Date / Time cefaclor (From CECLOR) Allergy Unknown Verified 10/05/17 19:03 Penicillins (PENICILLINS) Allergy Unknown Verified 10/05/17 19:03 sumatriptan (From IMITREX) Allergy Unknown Verified 10/05/17 19:03 [facility] Disclaimer: The information contained in this section may have been updated after the patient was seen, as this information can be updated by other users. Social History Smoking Status: Current every day smoker tobacco type: cigarettes packs per day: 1 second hand exposure: Yes alcohol intake: never current occupational status: other Travel in the last 8 weeks?: None Have you lived/traveled outside [place] in past 30 days?: No Contact w/someone who lives/traveled outside [place] past 30 days?: No Exposure to someone with infectious disease in past 14 days?: No Do you have a fever (greater than 100.4 F or 38 C)?: No Have you tested positive for COVID-19?: No Exposed to someone with COVID-19 in past 14 days?: No Do you have a sore throat?: No Do you have a cough?: No Do you have any weakness?: No Do you have any diarrhea?: No Are you experiencing any unusual bleeding?: No Do you have any muscle aches/pain?: No Do you have any abdominal pain?: No Are you experiencing loss of taste or smell?: No Other Medical History Have you received the Flu Vaccine for this season: No Have you received the Pneumonia Vaccine: No ROS Obtained: Yes All systems reviewed & no additional complaints except as documented Physical Exam General General appearance: alert, in no apparent distress and anxious Comment: Quite anxious, actively rolling writhing around in the bed with active vomiting and retching Head Head exam: atraumatic and normocephalic Eye Eye exam: Present PERRL and EOMI ENT ENT exam: Present mucous membranes moist Neck Neck exam: Present normal inspection Chest Chest inspection: Present normal inspection and symmetric chest wall rise Respiratory Respiratory exam: Present normal lung sounds bilaterally; Absent respiratory distress, wheezes, stridor or accessory muscle use Cardiovascular Cardiovascular exam: Present regular rate and normal rhythm Abdominal Exam Abdominal exam: Present soft and tenderness; Absent Manzano's sign or Rovsing's sign Abdominal tenderness: Present diffuse and mild Comment: Mild diffuse abdominal tenderness palpation Extremities Exam Extremities exam: Present normal inspection Back Exam Back exam: Absent CVA tenderness (R) or CVA tenderness (L) Neurological Exam Neurological exam: Present alert and oriented X3 Psychiatric Psychiatric exam: Present normal affect Skin Skin exam: Present warm and dry Medical Decision Making Medical Records Medical records reviewed: Yes I reviewed the patient's medical records. Screening: Per USPSTF and CDC recommendations, given the prevalence of disease in our region, it is our hospital?s policy to screen for HIV and viral Hepatitis for all patients aged 18 and over and those with ongoing risk factors. Mekhi Inquiry Pt receiving controlled substance: Yes Mekhi was queried for this patient: Yes Reason not queried -: Emergent pt cond-no time Risks and benefits of using a controlled substance: were discussed with pt by me Vital Signs: 08/23/24 16:14 08/23/24 16:15 08/23/24 16:31 Temperature 98.4 F Temperature Source Oral Pulse Rate 68 54 L Pulse Rate [Left] 65 Respiratory Rate 20 Blood Pressure 138/121 H 108/82 L Blood Pressure [Right Arm] 140/92 H Blood Pressure Mean [Right Arm] 108 Blood Pressure Source [Right Arm] Automatic Cuff 02 Sat by Pulse Oximetry 100 100 100 Oxygen Delivery Method Room Air Lab Data Lab results reviewed: Yes I reviewed the patient's lab results. Lab Results 08/23/24 16:10: WBC 15.5 H, RBC 4.68, Hgb 14.4, Hct 41.5 L, MCV 88.7, MCH 30.8, MCHC 34.7, RDW 12.8, Plt Count 329, MPV 10.2, Neut % (Auto) 91.9 H, Lymph % (Auto) 4.8 L, [place] % (Auto) 2.8, Eos % (Auto) 0.1, Baso % (Auto) 0.1, Neut # (Auto) 14.3 H, Lymph # (Auto) 0.8, [place] # (Auto) 0.4, Eos # (Auto) 0.0, Baso # (Auto) 0.0, Sodium 141, Potassium 3.9, Chloride 103, Carbon Dioxide 22, Anion Gap 19.9 H, BUN 12, Creatinine 0.70, Estimated Creat Clear 159, Estimated GFR 124, Est GFR ( Amer) 150, Glucose 125 H, Lactate 2.0, Calcium 10.0, Total Bilirubin 1.2, AST 25, ALT 22, Alkaline Phosphatase 86, Total Protein 7.3, Albumin 4.7, Globulin 2.6, Albumin/Globulin Ratio 1.8, Lipase 49 08/23/24 16:51: Urine Opiates Screen Positive H, Urine Methadone Screen Negative, Ur Barbituates Screen Negative, Ur Phencyclidine Scrn Negative, Ur Amphetamines Screen Negative, U Benzodiazepines Scrn Negative, Urine Cocaine Screen Negative, U Marijuana (THC) Screen Positive H 08/23/24 16:53: Urine Color Yellow, Urine Appearance Clear, Urine pH 7.0, Ur Specific [place] 1.020, Urine Protein Trace, Urine Glucose (UA) Negative, Urine Ketones Trace, Urine Blood Trace-i, Urine Nitrate Negative, Urine Bilirubin 1+ A , Urine Urobilinogen 0.2, Ur Leukocyte Esterase Negative, Urine RBC 3-5, Urine WBC Occasional, Ur Squamous Epith Cells Occasional, Urine Bacteria Trace 08/23/24 16:10 08/23/24 16:10 Orders (Tests/Meds): ED MEDICATIONS Discontinued Medications Generic Name Dose Route Start Last Admin Trade Name Freq PRN Reason Stop Dose Admin Droperidol 1.5 mg 08/23/24 16:27 08/23/24 16:50 Droperidol 5mg/2ml Vial IV 08/23/24 16:28 1.5 mg ONCE ONE Administration Iopamidol 75 ml 08/23/24 17:00 08/23/24 17:01 Iopamidol-370 (76%);100ml Bottle IV 08/23/24 17:01 75 ml ONCE ONE Administration Ketorolac Tromethamine 15 mg 08/23/24 16:32 08/23/24 16:50 Ketorolac 30mg/Ml Vial IV 08/23/24 16:33 15 mg ONCE ONE Administration Sodium Chloride 10 ml 08/23/24 17:00 08/23/24 17:01 Sodium Chloride 0.9% 10ml Syr (Rad Only) IV 08/23/24 17:01 10 ml ONCE ONE Administration ORDERS Category Date Time Status CT abdomen pelvis w con Stat Cat Scan 08/23/24 16:26 Completed Complete Blood Count Auto Diff Stat Lab 08/23/24 16:10 Completed Comprehensive Metabolic Panel Stat Lab 08/23/24 16:10 Completed Drug Screen,Urine Stat Lab 08/23/24 16:51 Completed Lactic Acid Stat Lab 08/23/24 16:10 Completed Lipase Stat Lab 08/23/24 16:10 Completed Urinalysis and Microscopic Stat Lab 08/23/24 16:53 Completed Medical Decision Narrative: 43-year-old male presents emergency department with nausea vomiting abdominal pain, diarrhea, differential diagnosis include but not limited to, hyperemesis gravidarum, acute UTI, acute pyelonephritis, bowel obstruction, colitis, ileitis, appendicitis, diverticulitis, pancreatitis, cardiac arrhythmia, electrolyte disturbance, nephrolithiasis, ureterolithiasis among others. I discussed this patient's case with the attending physician Will obtain basic laboratory studies, lactic acid level, lipase level, UA, EKG, CT ab pelvis with contrast, will give 1.5 mg IV droperidol for nausea and vomiting, obtain UDS, and 15 mg IV Toradol for pain CBC is noted for mild leukocytosis 15.5 otherwise unremarkable CBC No lactic acidosis, noted on CMP, lipase in normal limits I along with the attending physician reviewed the patient's EKG, sinus bradycardia at 52 bpm, QT interval within normals, NH interval within normals, there is no STEMI, reviewed his EKG at 1644 UA is notable for negative nitrites, negative leukocyte Estrace, 1+ bilirubin, no hematuria UDS is positive for opiates, as well as marijuana, otherwise negative. I reviewed the patient CT abdomen pelvis with contrast on the corresponding radiologic report, 4 mm nonobstructing stone right kidney mid to lower pole, no acute inflammatory process identified within the abdomen or pelvis Reexamination of the patient approximately 6:20 PM, patient is resting comfortably in bed, no other episodes of nausea and vomiting, patient has remained hemodynamically stable, and is cleared to be discharged home to self- care, marijuana cessation was discussed with him at the bedside, recommend ibuprofen and Tylenol as needed for symptomatic relief, most likely leukocytosis is thought to be caused from active vomiting and retching, patient was given very strict ED return precautions, patient follow-up with GI provider, I will prescribe 4 mg p.o. Zofran as needed for nausea and vomiting patient voiced understanding and agreed to current plan/discharge plan. Critical Care Critical Care Time Critical Care Time: No
--- NOTE | 2024-08-23 16:26 | CT_ITS ---
PROCEDURE INFORMATION: Exam: CT Abdomen And Pelvis With Contrast Exam date and time: 08/23/2024 5:02 PM Age: 43 years old Clinical indication: Abdominal pain; Additional info: Abd pain, nausea, vomiting, diarrhea TECHNIQUE: Imaging protocol: Computed tomography of the abdomen and pelvis with contrast. Radiation optimization: All CT scans at this facility use at least one of these dose optimization techniques: automated exposure control; mA and/or kV adjustment per patient size (includes targeted exams where dose is matched to clinical indication); or iterative reconstruction. Contrast material: ISOVUE; Contrast volume: 75 ml; Contrast route: IV; COMPARISON: No relevant prior studies available. FINDINGS: Lungs: The visualized lung bases demonstrate no focal infiltrates or pleural effusions. Liver: Mild diffuse hepatic steatosis is identified. Gallbladder and biliary ducts: The gallbladder is normal. There is no evidence of biliary ductal dilation. Pancreas: The pancreas is normal. Spleen: The spleen is normal. Adrenal glands: The adrenal glands appear within normal limits. Kidneys and ureters: 4 mm nonobstructing stone right kidney mid to lower pole. Stomach and bowel: The stomach appears within normal limits. No wall thickening or inflammatory change. Appendix: No evidence of appendicitis. Intraperitoneal space: No free air. No evidence for focal fluid collection or ascites. No evidence for omental thickening. Vasculature: Unremarkable. No abdominal aortic aneurysm. Lymph nodes: Unremarkable. No pathologically enlarged lymph nodes are identified. Urinary bladder: Minimal prominence of the bladder wall felt to be related to decompressed state. Reproductive: The prostate gland appears normal. Bones/joints: Unremarkable. No acute fracture. Soft tissues: Unremarkable. IMPRESSION: 1. 4 mm nonobstructing stone right kidney mid to lower pole. 2. No acute inflammatory process identified within the abdomen or pelvis.
[2024-08-23 16:31] LABS: Hematocrit 41.5 % (42.0-52.0); Hemoglobin 14.4 g/dL (14.1-18.0); Immature Granulocytes % 0.3 %; Mean Corpuscular HGB Conc 34.7 g/dL (31.8-35.4); Mean Corpuscular Hemoglobin 30.8 pg (27.0-31.2); Mean Corpuscular Volume 88.7 fl (80-94); Nucleated Red Blood Cells % 0 %; Platelet Count 329 K/mm3 (142-424); Red Blood Count 4.68 M/mm3 (4.60-6.20); Red Cell Distribution Width-SD 41.7 fL; White Blood Count 15.5 K/mm3 (4.8-10.8)
[2024-08-23 16:40] LABS: Alanine Aminotransferase 22 U/L (12-78); Albumin Level 4.7 g/dl (3.5-5.0); Albumin/Globulin Ratio 1.8 (1.1-1.8); Alkaline Phosphatase 86 U/L (38-126); Anion Gap 19.9 mEq/L (5-15); Aspartate Amino Transferase 25 U/L (17-59); Bilirubin,Total 1.2 mg/dl (0.2-1.3); Blood Urea Nitrogen 12 mg/dl (9-20); Calcium 10.0 mg/dl (8.4-10.2); Carbon Dioxide 22 mmol/L (22.0-30.0); Chloride 103 mmol/L (98-107); Creatinine Clearance Estimated 159 mL/min (50-200); Creatinine,Serum 0.70 mg/dl (0.66-1.25); Estimated Glomerular Filt Rate 124 ml/min (>60); GFR (African American) 150 ML/MIN (>60); Globulin 2.6 g/dL (1.3-3.2); Glucose 125 mg/dl (74-100); Lipase 49 U/L (23-300); Potassium 3.9 mmoL/L (3.5-5.1); Sodium 141 mmol/L (136-145); Total Protein,Serum 7.3 g/dl (6.3-8.2)
--- NOTE | 2024-08-23 16:43 | ECG_ITS ---
APPROVED REPORT Exam: Resting ECG HR:52 bpm ECG Measurements Heart Rate 52 AXES ND 131 P 74 QRSd 88 QRS 75 QT 442 T 68 QTc 421 Conclusion SINUS BRADYCARDIA BORDERLINE ECG UNCONFIRMED REPORT Electronically signed by : Warren Pritchett, 08/23/2024 23:29:33
[2024-08-23] MEDS: droPERidol 5MG/2ML VIAL 1.5 MG IV (16:50)
[2024-08-23] MEDS: KETOROLAC 30MG/ML VIAL 15 MG IV (16:50)
[2024-08-23 16:56] LABS: Microscopic, Urine URINE MICROSCOPIC (MICROSCOPIC)
[2024-08-23 17:01] LABS: Color,Urine YELLOW (Yellow); Glucose,Urine (UA) Negative (Negative); Ketones,Urine TRACE (Negative); Leukocyte Esterase,Urine Negative (Negative); PH,Urine 7.0 (5.0-8.5); Protein,Urine TRACE (Negative); Specific Gravity, Urine 1.020 (1.005-1.030); Urobilinogen,Urine 0.2 EU/dl (0.2)
[2024-08-23] MEDS: IOPAMIDOL-370 (76%);100ML BOTTLE 75 ML IV (17:01)
[2024-08-23] MEDS: SODIUM CHLORIDE 0.9% 10ML SYR (RAD ONLY) 10 ML IV (17:01)
[2024-08-23 17:04] LABS: Bilirubin,Urine 1+ (Negative)
[2024-08-23 17:15] LABS: Amphetamine/Metha Screen,Urine Negative ng/ml (<1000)
[2024-08-23 17:16] LABS: Barbiturates Screen,Urine Negative ng/ml (<200)
[2024-08-23 17:17] LABS: Benzodiazepines Screen,Urine Negative ng/ml (<200)
[2024-08-23 17:19] LABS: Methadone Screen,Urine Negative ng/ml (<300); Opiate Screen,Urine Positive ng/ml (<300)
[2024-08-23 17:20] LABS: Phencyclidine Screen,Urine Negative ng/ml (<25)
[2024-08-23 17:23] LABS: Bacteria,Urine Trace /lpf; Squamous Epithelial Cell,Urine Occasional #/hpf (0-5); WBC,Urine Occasional #/hpf (0-3)
== END 2024-08-23 19:17 | disposition home or self-care (01) ==
PROVIDERS: Physician Assistant; Emergency Provider Student in an Organized Health Care Education/Training Program
DX: R10.30 Lower abdominal pain, unspecified (principal); R00.1 Bradycardia, unspecified; R11.2 Nausea with vomiting, unspecified; F17.210 Nicotine dependence, cigarettes, uncomplicated; F12.90 Cannabis use, unspecified, uncomplicated
CPT/HCPCS: 74177; 80053; 80307; 81001; 83605; 83690; 85025; 93005; 96374; 96375; 99285; J1790; J1885; Q9967

== ENCOUNTER 2024-09-05 13:24 | Emergency (ER) | payer OTHER, SELFPAY ==
--- OUTSIDE RECORDS SUMMARY | 2024-07-18 13:00 | XMS_ITS | Encounter Summary ---
[facility] [address] [place] [address] Care Team Providers Care Hims Clerk Name Role Phone Kyra Bolton MD Primary Care Provide r Reason for Visit * Reason Comments Abdominal Pain Nausea Vomiting GI Bleeding Encounter Details Date Type Department Care Team (Late st Contact Info) Description 07/18/2024 1:00 PM EDT Office Visit [facility] GASTROENTEROLOGY [address] [facility] [address] [place] [address] Antonia Marroquin, MONTESSORI TODDLER TEACHER [address] [facility] [address] [place] [address] Left lower quadrant pain (Primary [...] if needed. For abdominal pain: Began applying ihtl-tua-bfuojyt Capsaicin cream to upper abdomen 3-4 times daily to help with pain and nausea For nausea, bloating and fullness Ayde has been helpful for some patients. Gingerroot capsules can be purchased [id number]. Directions: Ayde root 500 mg (or 550 [...] note were not included. Patient or patient software sales representative verbalized consent for the use of [...] had 5 ER visits since February for [facility], 01/28/2024 EGD LA grade a esophagitis Proximal and distal Path: No significant increase in eosinophils; negative for Nolen's esophagus Nonerosive gastritis Path: Negative for HP or IM Endoscopically normal duodenum Past Surgical History: Past Surgical History: Procedure Laterality Date ENDOSCOPY N/A 10/09/2021 Procedure: ESOPHAGOGASTRODUODENOSCOPY WITH ANESTHESIA; Surgeon: Will Blackburn MD; Location: [facility] OR; Service: Gastroenterology; Laterality: N/A; ESOPHAGOGASTRODUODENOSCOPY WITH ANESTHESIA FOOD BOLUS REMOVAL ENDOSCOPY N/A 01/28/2024 Procedure: ESOPHAGOGASTRODUODENOSCOPY WITH BIOPSY; Surgeon: David Olivarez MD; Location: [facility] OR; Service: Gastroenterology; Laterality: N/A; Gastritis; Esophagitis [...] that have significantly impacted their daily life [facility]. Below is a detailed account of [...] if needed. For abdominal pain: Began applying ypsi-gnj-lvaovtk Capsaicin cream to upper abdomen 3-4 times daily to help with pain and nausea For nausea, bloating and fullness Ayde has been helpful for some patients. Gingerroot capsules can be purchased [id number]. Directions: Ayde root 500 mg (or 550 [...] four hours following ingestion of eggs EMR Dragon/Supervisor Sample Disclaimer: This document has been Dictated utilizing Dragon dictation. Antonia Marroquin, MSN, MONTESSORI TODDLER TEACHER, NEWSPAPER INSERTER-C [facility] Gastroenterology [address] [place] [address] office [phone] fax documented in this encounter Plan of Treatment Upcoming Encounters Date Type Department Care Team (Late st Contact Info) Description 09/14/2024 9:40 AM EDT Lab [facility] PRIMARY CARE [address] [place] [address] 09/21/2024 2:45 PM EDT Office Visit [facility] PRIMARY CARE [address] [place] [address] Kyra Bolton MD [address] [place] [address] documented as of this encounter Visit Diagnoses Diagnosis Left lower quadrant pain- Primary Abdominal pain, left lower quadrant Encounter for screening colonoscopy documented in this encounter Care Teams Hims Clerk Relationship Specialty Start Date End Date Kyra Bolton MD [address] [place] [address] PCP - General Internal Medicine & Pediatrics 11/05/22 documented as of this encounter
--- OUTSIDE RECORDS SUMMARY | 2024-07-21 07:19 | XMS_ITS | Encounter Summary ---
[facility] Address [address] [place] [address] Care Team Providers Care President Educational Institution Name Role Phone Kyra Bolton MD Primary Care Provide r Reason for Visit * Auth/Cert Specialty Diagnoses / Procedures Referred By Contac t Referred To Contact Diagnoses Left lower quadrant abdominal pain Encounter for screening colonoscopy Left lower quadrant abdominal pain [R10.32] Encounter for screening colonoscopy [Z12.11] Procedures COLONOSCOPY Referral ID Status Reason Start Date Expiration Date Visits Re quested Visits Authorized [id number] 1 1 Encounter Details Date Type Department Care Team (Latest Contact Info) Description 07/21/2024 7:19 AM EDT - 07/21/2024 10:21 AM EDT Hospital Encounter [facility] [address] [place] [address] David Olivarez MD [address] [facility] [address] [place] [address] Left lower quadrant abdominal pain; Encounter for screening colonoscopy Discharge Disposition: Home or Self Care Social [...] Physical Signs of Abuse Present no 01/28/2024 Housing Stability Answer Date Recorded Current Living Arrangements home 07/10 Potentially Unsafe Housing Conditions Not on castro e 07/20/2024 Disabilities Answer Date Recorded Difficulty Concentrating, Remembering or Making Decisions no 07/20/2024 Difficulty Managing Errands Independently no 07/20/2024 PHQ-2 Answer Date Recorded Patient Health Questionnaire-2 Score 0 03/04/2024 Sex and Gender Information Value Date Recorded Sex Assigned at Male 07/18/2024 12:20 PM EDT Legal Sex Male 10:24 AM EDT Gender Identity Not on file Sexual Orientation Not on file documented as of this encounter Last Filed Vital Signs Vital Sign Reading Time Taken Comments Blood Pressure 126/76 07/21/2024 10:20 AM EDT Pulse 62 07/21/2024 10:20 AM EDT Temperature 36.6 C (97.9 F) 07/21/2024 9:57 AM EDT Respiratory Rate 16 07/21/2024 10:20 AM EDT Oxygen Saturation 100% 07/21/2024 10:20 AM EDT Inhaled Oxygen Concentration - - Weight 82.6 kg (182 lb 3.2 oz) 07/21/2024 7:33 A M EDT Height - - Body Mass Index 26.89 07/18/2024 12:49 PM EDT documented in this encounter Functional Status * Question Answer Date of Assessment Author 1. Wish to be (Past 1 Month) No 025 7:31 AM EDT Becki Shannon RN 2. Non-Specific Active Suici yuridia Thoughts (Past 1 Month) No 07/21/2024 7:31 AM EDT Becki Shannon RN * Calculated C-SSRS Risk Score (Lifetime/Recent) Answer Date of Assessment Author No Risk Indicated 07/21/2024 7:31 AM EDT Aleksandra Shannon RN * [place] Suicide Severity Rating Scale (Screener/Recent Self-Report) Question Answer Date of Assessment Author 6. Suicidal Behavior (Lifetime) No 7:31 AM EDT Becki Shannon RN documented as of this encounter Discharge Instructions * Attachments The following attachments cannot be sent through Care Everywhere. * Monitored Anesthesia Care Care After (Omani) * Colonoscopy Adult Care After [id number]-uw-[id number] (Omani) * Colon Polyps (Omani) * Hemorrhoids Uvfh-nl-Dhix (Omani) documented in this encounter Medications at Time of Discharge CBD (cannabidiol) oral oil Take by mouth Daily. escitalopram (LEXAPRO) 20 MG tabletIndications:A nxiety and depression TAKE 1 TABLET BY MOUTH DAILY 30 tablet 2 07/07/2024 NON FORMULARY Take by mouth Daily. Kratom Mitragynine PO ondansetron ODT (ZOFRAN-ODT) 4 MG disintegrating tablet Take 1 tablet by mouth. 03/02/2024 pantoprazole (PROTONIX) 40 MG EC tabletIndications:E osinophilic esophagitis Take 1 tablet by mouth 2 (Two) Times a Day. 180 tablet 3 06/21/2024 Symbicort 160-4.5 MCG/ACT inhaler Inhale 2 puffs 2 (Two) Times a Day. 05/22/2024 traZODone (DESYREL) 100 MG tabletIndications:S leep difficulties Take 1 tablet by mouth Every Night. 30 tablet 1 06/21/2024 08/16/19 25 Ventolin HFA 108 (90 Base) MCG/ACT inhalerIndications: Wheezing INHALE 2 PUFFS BY MOUTH EVERY 4 HOURS NEEDED FOR WHEEZING 90 g 05/23/2024 08/18/19 25 documented as of this encounter H&P Notes * David Olivarez MD - 07/21/2024 9:14 AM EDT Patient Care Team: Kyra Bolton MD as PCP - General (Internal Medicine & Pediatrics) Mary Pennington APRN as Nurse Practitioner (Gastroenterology) CHIEF COMPLAINT: C/s for LLQ abdominal pain HISTORY OF PRESENT ILLNESS: C/s for LLQ abdominal pain Past Medical History: Diagnosis Date ADHD (attention deficit hyperactivity disorder) 1989 Allergic Food and medications Anxiety Depression Esophageal stricture GERD (gastroesophageal reflux disease) Headache When i was younger Kidney stone Methamphetamine abuse in remission Restless leg syndrome Substance abuse In Recovery since 08/11/2020 Visual impairment Has to wear glasses Past Surgical History: Procedure Laterality Date ENDOSCOPY N/A 10/09/2021 Procedure: ESOPHAGOGASTRODUODENOSCOPY WITH ANESTHESIA; Surgeon: Will Blackburn MD; Location: [facility]; Service: Gastroenterology; Laterality: N/A; ESOPHAGOGASTRODUODENOSCOPY WITH ANESTHESIA FOOD BOLUS REMOVAL ENDOSCOPY N/A 01/28/2024 Procedure: ESOPHAGOGASTRODUODENOSCOPY WITH BIOPSY; Surgeon: David Olivarez MD; Location: [facility]; Service: Gastroenterology; Laterality: N/A; Gastritis; Esophagitis HERNIA REPAIR 1985 INGUINAL HERNIA REPAIR Bilateral KNEE ARTHROSCOPY Left 11/08/ MASS EXCISION Left NECK UPPER GASTROINTESTINAL ENDOSCOPY Family History Problem Relation Age of Onset Breast cancer Mother Anxiety disorder Mother Cancer Mother Depression Mother Mental illness Mother Heart disease Father Alcohol abuse Father in 1999 Drug abuse Father Early Father Mitral valve prolapse Sister No Known Problems Daughter Breast cancer Maternal Grandmother Cancer Maternal Grandmother COPD Maternal Grandmother Mental illness Maternal Grandmother Depression Sister Drug abuse Sister Developmental Disability Maternal Uncle Learning disabilities Maternal Uncle Social History Tobacco Use Smoking status: Every Day Current packs/day: 1.50 Average packs/day: 1 pack/day for 41.1 years (41.7 ttl pk-yrs) Types: Cigarettes Start date: 06/10/2003 Passive exposure: Past Smokeless tobacco: Never Vaping Use Vaping status: Every Day Substances: Nicotine, THC, CBD, Flavoring Devices: Disposable, Pre-filled or refillable cartridge Substance Use Topics Alcohol use: Never Drug use: Not Currently Frequency: 1.0 times per week Types: Heroin, Hydrocodone, Marijuana, Methamphetamines, Oxycodone Comment: In recovery since 2020 Medications Prior to Admission Medication Sig Dispense Refill Last Dose/Taking CBD (cannabidiol) oral oil Take by mouth Daily. Past Week escitalopram (LEXAPRO) 20 MG tablet TAKE 1 TABLET BY MOUTH DAILY 30 tablet 2 07/19/2024 at 10:00 AM NON FORMULARY Take by mouth Daily. Kratom Mitragynine PO 07/19/2024 ondansetron ODT (ZOFRAN-ODT) 4 MG disintegrating tablet Take 1 tablet by mouth. Past Month pantoprazole (PROTONIX) 40 MG EC tablet Take 1 tablet by mouth 2 (Two) Times a Day. 180 tablet 3 Past Month Symbicort 160-4.5 MCG/ACT inhaler Inhale 2 puffs 2 (Two) Times a Day. 07/21/2024 Morning Ventolin HFA 108 (90 Base) MCG/ACT inhaler INHALE 2 PUFFS BY MOUTH EVERY 4 HOURS NEEDED FOR WHEEZING 90 g 0 07/21/2024 Morning traZODone (DESYREL) 100 MG tablet Take 1 tablet by mouth Every Night. 30 tablet 1 07/18/2024 Allergies: Banana, Melon, [place], Sumatriptan, Ciclopirox, Penicillins, Cefaclor, and Prochlorperazine REVIEW OF SYSTEMS: Please see the above history of present illness for pertinent positives and negatives. The remainder of the patient's systems have been reviewed and are negative. Vital Signs Temp: [97.7 ??F (36.5 ??C)] 97.7 ??F (36.5 ??C) Heart Rate: [79] 79 Resp: [10] 10 BP: (129)/(79) 129/79 Flowsheet Rows Flowsheet Row First Filed Value Admission Height -- Admission Weight 82.6 kg (182 lb 3.2 oz) Documented at 07/21/2024 0733 Physical Exam: Physical Exam Constitutional: Patient appears well-developed and well-nourished and in no acute distress HEENT: Head: Normocephalic and atraumatic. Eyes: Pupils are equal, round, and reactive to light. EOM are intact. Sclerae are anicteric and non-injected. Mouth and Throat: Patient has moist mucous membranes. Oropharynx is clear of any erythema or exudate. Neck: Neck supple. No JVD present. No thyromegaly present. No lymphadenopathy present. Cardiovascular: Regular rate, regular rhythm, S1 normal and S2 normal. Exam reveals no gallop and no friction rub. No murmur heard. Pulmonary/Chest: Lungs are clear to auscultation bilaterally. No respiratory distress. No wheezes. No rhonchi. No rales. Abdominal: Soft. Bowel sounds are normal. No distension and no mass. There is no hepatosplenomegaly. There is no tenderness. Musculoskeletal: Normal Muscle tone Extremities: No edema. Pulses are palpable in all 4 extremities. Neurological: Patient is alert and oriented to person, place, and time. Cranial nerves II-XII are grossly intact with no focal deficits. Skin: Skin is warm. No rash noted. Nails show no clubbing. No cyanosis or erythema. Debilities/Disabilities Identified: None Emotional Behavior: Appropriate Results Review: I reviewed the patient's new clinical results. Lab Results (most recent) None Imaging Results (Most Recent) None reviewed ECG/EMG Results (most recent) None reviewed Assessment & Plan C/s for LLQ abdominal pain/ colonoscopy I discussed the patient's findings and my recommendations with patient. David Olivarez MD 07/21/24 09:14 EDT Time: 10 min prior to procedure. documented in this encounter Plan of Treatment Upcoming Encounters Date Type Department Care Team (Late st Contact Info) Description 09/14/2024 9:40 AM EDT Lab [facility] [address] [place] [address] 09/21/2024 2:45 PM EDT Office Visit [facility] [address] [place] [address] Kyra Bolton MD [address] [place] [address] documented as of this encounter Procedures Procedure Name Priority Date/Time Associated Diagnosis Comments TISSUE PATHOLOGY EXAM Routine 07/21/2024 9:27 AM EDT Left lower quadrant abdominal pain Encounter for screening colonoscopy GA COLONOSCOPY W/BIOPSY SINGLE/MULTIPLE 07/21/2024 9:10 AM EDT Left lower quadrant abdominal pain Encounter for screening colonoscopy COLONOSCOPY 07/21/2024 9:07 AM EDT SCANNED - TELEMETRY 07/21/2024 documented in this encounter Results * Tissue Pathology Exam (07/21/2024 9:27 AM EDT) Case Report Surgical Pathology Report Case: [id number] Authorizing Provider: David Olivarez MD Collected: 07/21/2024 09:27 AM Ordering Location: [facility] Received: 07/21/2024 09:58 AM OR Pathologist: Wilfrid Alicea MD Specimens: 1) - Large Intestine, Right / Ascending Colon 2) - Large Intestine, Transverse Colon, x2 3) - Large Intestine, Transverse Colon, x2 07/22/2024 10:33 AM EDT [facility] Final Diagnosis 1. Colon, ascending, biopsy: A. Fragments of tubular adenoma. 2. Colon, transverse, biopsy: A. Fragments of tubular adenoma. 3. Colon, transverse, biopsy: A. Fragments of tubulovillous adenoma. 07/22/2024 10:33 AM T [facility] at 1033 EDT Gross Description 1. Large Intestine, Right / Ascending Colon. The specimen is received in formalin labeled with the patient's name and further designated 'right ascending colon biopsy' are multiple small fragments of castillo-go tissue. The specimen is submitted for embedding as received. 2. Large Intestine, Transverse Colon. The specimen is received in formalin labeled with the patient's name and further designated 'transverse colon biopsy' are multiple small fragments of castillo-go tissue. The specimen is submitted for embedding as received. 3. Large Intestine, Transverse Colon. Received in formalin, labeled with the patient's name, and designated transverse colon biopsy , are 3 irregular pink-go mildly granular polypoid fragments measuring from 0.6 cm up to 1.4 x 1.2 x 1.0 cm. The smallest fragment is bisected. The 2 larger fragments are diffusely erythematous. The midsized fragment is bisected and the largest fragment is trisected. All tissue is submitted as follows: 3A: Trisected largest polyp 3B: 2 smaller bisected polyps mb/uso/mec 07/22/2024 10:33 AM T [facility] Microscopic Description Unless gross only is specified, the final diagnosis for each specimen is based on microscopic examination of tissue. 07/22/2024 10:33 AM T [facility] Polyp Ascending colon structure / Unknown 07/21/2024 9:27 AM EDT 07/21/2024 9:58 AM EDT Other (qualifier value) Transverse colon structure / Unknown 07/21/2024 9:32 AM EDT 07/21/2024 9:58 AM EDT Other (qualifier value) Transverse colon structure / Unknown 07/21/2024 9:38 AM EDT 07/21/2024 9:58 AM EDT us David Olivarez MD PATHOLOGY/CYTOLOGY ORDERABLES Final Result [facility]
[address] [place] [address], * Colonoscopy (07/21/2024 9:07 AM EDT) us David Olivarez MD INTERFACE NEEDS Final Result * Telemetry Scan (07/21/2024) [facility] Final Result documented in this encounter Visit Diagnoses Diagnosis Left lower quadrant abdominal pain Encounter for screening colonoscopy documented in this encounter Admitting Diagnoses Diagnosis Left lower quadrant abdominal pain Encounter for screening colonoscopy documented in this encounter Administered Medications Inactive Administered Medications - up to 3 most recent administrations Medication Order MAR Action Action Date Dose Rate Site lactated ringers infusion 9 mL/hr, Intravenous, Continuous, Starting on Jenelle 07/21/24 at 0815, For 1 day New Bag 07/21/2024 9:53 AM EDT Restarted 07/21/2024 9:11 AM EDT Currently Infusing 07/21/2024 9:10 AM EDT 9 mL/ hr lactated ringers infusion 100 mL/hr, Intravenous, Once, On Jenelle 07/21/24 at 1100, For 1 dose Rate/Dose Change 07/21/2024 10:00 AM EDT 100 mL/hr 100 mL/hr lidocaine PF 1% (XYLOCAINE) injection 0.5 mL 0.5 mL, Injection, Once As Needed, IV Start, Starting on Jenelle 07/21/24 at 0724, For 1 dose ondansetron (ZOFRAN) injection 4 mg 4 mg, Intravenous, Once As Needed, Nausea, Vomiting, Starting on Jenelle 07/21/24 at 1000, For 1 dose, If BOTH ondansetron (ZOFRAN) and promethazine (PHENERGAN) are ordered use ondansetron first and THEN promethazine IF ondansetron is ineffective. sodium chloride 0.9 % flush 10 mL 10 mL, Intravenous, Every 12 Hours Scheduled, First dose on Jenelle 07/21/24 at 0900 sodium chloride 0.9 % flush 10 mL 10 mL, Intravenous, As Needed, Line Care, Starting on Jenelle 07/21/24 at 0724 sodium chloride 0.9 % infusion 40 mL 40 mL, Intravenous, As Needed, Line Care, Starting on Jenelle 07/21/24 at 0724, Following administration of an IV intermittent medication, flush line with 40mL NS at 100mL/hr. documented in this encounter Active and Recently Administered Medications Times are shown in EDT. Scheduled Medication Order 07/19/2024 07/20/2024 07/21/2024 lactated ringers infusion 100 mL/hr, Intravenous, Once, On Jenelle 07/21/24 at 1100, For 1 dose 1000 (Rate/Dose Ramos ge - Provider: Cynthia Zarate, CANDY)1020 (Stopped - Provider: Cynthia Zarate RN) sodium chloride 0.9 % flush 10 mL 10 mL, Intravenous, Every 12 Hours Scheduled, First dose on Jenelle 07/21/24 at 0900 0900 (Due) Continuous Medication Order 07/19/2024 07/20/2024 07/21/2024 lactated ringers infusion 9 mL/hr, Intravenous, Continuous, Starting on Jenelle 07/21/24 at 0815, For 1 day 0741 (New Bag - Prov ider: Becki Shannon RN)0910 (Currently Infusing - Provider: Mariel Ferreira CRNA)0910 (Paused - Provider: Mariel Ferreira CRNA - Comment: Switch to gravity)0911 (Restarted - Provider: Mariel Ferreira CRNA)0953 (New Bag - Provider: Mariel Ferreira CRNA)1225 (Due: Order Ending - Provider: Automatic Discharge Provider - Comment: [Order ends at this time. Document the following action when infusion is complete: Stopped]) PRN Medication Order 07/19/2024 07/20/2024 07/21/2024 lidocaine PF 1% (XYLOCAINE) injection 0.5 mL 0.5 mL, Injection, Once As Needed, IV Start, Starting on Jenelle 07/21/24 at 0724, For 1 dose ondansetron (ZOFRAN) injection 4 mg 4 mg, Intravenous, Once As Needed, Nausea, Vomiting, Starting on Jenelle 07/21/24 at 1000, For 1 dose, If BOTH ondansetron (ZOFRAN) and promethazine (PHENERGAN) are ordered use ondansetron first and THEN promethazine IF ondansetron is ineffective. sodium chloride 0.9 % flush 10 mL 10 mL, Intravenous, As Needed, Line Care, Starting on Jenelle 07/21/24 at 0724 sodium chloride 0.9 % infusion 40 mL 40 mL, Intravenous, As Needed, Line Care, Starting on Jenelle 07/21/24 at 0724, Following administration of an IV intermittent medication, flush line with 40mL NS at 100mL/hr. sodium chloride 1,000 mL with simethicone 40 MG/0.6ML 3 mL mixture (CANCELED) As Needed, Starting on Jenelle 07/21/24 at 1008 1008 (Given - Provid er: David Olivarez MD) sterile water irrigation solution (CANCELED) As Needed, Starting on Jenelle 07/21/24 at 0950 0950 (Given - Provid er: David Olivarez MD) documented in this encounter Care Teams President Educational Institution Relationship Specialty Start Date End Date Kyra Bolton MD [address] [facility] [address] [place] [address] PCP - General Internal Medicine & Pediatrics 11/05/22 documented as of this encounter
--- OUTSIDE RECORDS SUMMARY | 2024-07-21 08:45 | XMS_ITS | Encounter Summary ---
[facility] Address [address] [place] [address] Care Team Providers Care Biostatistics Professor Name Role Phone Kyra Bolton MD Primary Care Provide r Reason for Visit * Auth/Cert Specialty Diagnoses / Procedures Referred By Contac t Referred To Contact Diagnoses Left lower quadrant abdominal pain Encounter for screening colonoscopy Left lower quadrant abdominal pain [R10.32] Encounter for screening colonoscopy [Z12.11] Procedures COLONOSCOPY Referral ID Status Reason Start Date Expiration Date Visits Re quested Visits Authorized [id number] 1 1 Encounter Details Date Type Department Care Team (Late st Contact Info) Description 07/21/2024 8:45 AM EDT - 07/21/2024 9:15 AM EDT Surgery [facility] [address] [place] [address] David Olivarez MD [address] [facility] [address] [place] [address] COLONOSCOPY WITH POLYPECTOMY [90052 (CPT )] Social History Tobacco Use Types [...] 7:31 AM EDT Aleksandra Shannon RN * [place] Suicide Severity Rating Scale (Screener/Recent Self-Report) Question Answer Date of Assessment Author 6. Suicidal Behavior (Lifetime) No 7:31 AM EDT Becki Shannon RN documented as of this encounter Discharge Instructions * Attachments The following attachments cannot be sent through Care Everywhere. * Monitored Anesthesia Care Care After (Estonian) * Colonoscopy Adult Care After Kxos-om-Ppeh (Estonian) * Colon Polyps (Estonian) * Hemorrhoids Ndcv-xn-Slii (Estonian) documented in this encounter Medications at Time [...] 30 tablet 1 07/18/2024 Allergies: Banana, Melon, [place], Sumatriptan, Ciclopirox, Penicillins, Cefaclor, and Prochlorperazine REVIEW [...] Info) Description 09/14/2024 9:40 AM EDT Lab [facility] [address] [place] [address] 09/21/2024 2:45 PM EDT Office Visit [facility] [address] [place] [address] Kyra Bolton MD [address] [place] [address] documented as of this encounter Procedures Procedure Name Priority Date/Time Associated Diagnosis Comments TISSUE PATHOLOGY EXAM Routine 07/21/2024 9:27 AM EDT Left lower quadrant abdominal pain Encounter for screening colonoscopy [place] COLONOSCOPY W/BIOPSY SINGLE/MULTIPLE 07/21/2024 9:10 AM EDT Left lower quadrant abdominal pain Encounter for screening colonoscopy COLONOSCOPY 07/21/2024 9:07 AM EDT SCANNED - TELEMETRY 07/21/2024 documented in this encounter Results * Tissue Pathology Exam (07/21/2024 9:27 AM EDT) Case Report Surgical Pathology Report Case: [id number] Authorizing Provider: David Olivarez MD Collected: 07/21/2024 09:27 AM Ordering Location: [facility] Received: 07/21/2024 09:58 AM OR Pathologist: Wilfrid Alicea MD Specimens: 1) - Large Intestine, Right / Ascending Colon 2) - Large Intestine, Transverse Colon, x2 3) - Large Intestine, Transverse Colon, x2 07/22/2024 10:33 AM EDT [facility] Final Diagnosis 1. Colon, ascending, biopsy: A. Fragments of tubular adenoma. 2. Colon, transverse, biopsy: A. Fragments of tubular adenoma. 3. Colon, transverse, biopsy: A. Fragments of tubulovillous adenoma. 07/22/2024 10:33 AM T [facility] at 1033 EDT Gross Description 1. [...] bisected polyps mb/uso/mec 07/22/2024 10:33 AM T [facility] Microscopic Description Unless gross only is specified, the final diagnosis for each specimen is based on microscopic examination of tissue. 07/22/2024 10:33 AM T [facility] Polyp Ascending colon structure / Unknown 07/21/2024 9:27 AM EDT 07/21/2024 9:58 AM EDT Other (qualifier value) Transverse colon structure / Unknown 07/21/2024 9:32 AM EDT 07/21/2024 9:58 AM EDT Other (qualifier value) Transverse colon structure / Unknown 07/21/2024 9:38 AM EDT 07/21/2024 9:58 AM EDT us David Olivarez MD PATHOLOGY/CYTOLOGY ORDERABLES Final Result [facility]
[address] [place] [address], * Colonoscopy (07/21/2024 9:07 AM EDT) us David Olivarez MD INTERFACE NEEDS Final Result * Telemetry Scan (07/21/2024) [facility] Onbase ECG ORDERABLES Final Result documented in [...] MD) documented in this encounter Care Teams Biostatistics Professor Relationship Specialty Start Date End Date Kyra Bolton MD 1023 [facility] [address] [place] [address] PCP - General Internal Medicine & Pediatrics 11/05/22 documented as of this encounter
--- OUTSIDE RECORDS SUMMARY | 2024-07-21 09:10 | XMS_ITS | Encounter Summary ---
[facility] [address] [place] [address] Care Team Providers Care Motion Picture Cameraman Name Role Phone Kyra Bolton MD Primary Care Provide r Reason for Visit * Auth/Cert Specialty Diagnoses / Procedures Referred By Contac t Referred To Contact Diagnoses Left lower quadrant abdominal pain Encounter for screening colonoscopy Left lower quadrant abdominal pain [R10.32] Encounter for screening colonoscopy [Z12.11] Procedures COLONOSCOPY Referral ID Status Reason Start Date Expiration Date Visits Re quested Visits Authorized [id number] 1 1 Encounter Details Date Type Department Care Team (Late st Contact Info) Description 07/21/2024 9:10 AM EDT Anesthesia Event [facility] [place] [address] [place] [phone] Mariel Ferreira CRNA [address] [place] [address] Kinza Chavez CRNA [address] [place] [address] Anesthesia Record Procedure Summary Procedure Name Responsible [...] 1 Month) No 07/21/2024 7:31 AM EDT Becik Shannon RN * Calculated C-SSRS Risk Score (Lifetime/Recent) Answer Date of Assessment Author No Risk Indicated 07/21/2024 7:31 AM EDT Aleksandra Shannon RN * [place] Suicide Severity Rating Scale (Screener/Recent Self-Report) Question Answer Date of Assessment Author 6. 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 Use of blood products discussed with patient Consented to blood products. CODE STATUS: documented in this encounter Plan of Treatment Upcoming Encounters Date Type Department Care Team (Late st Contact Info) Description 09/14/2024 9:40 AM EDT Lab [facility] [address] [facility] [address] [place] [phone] 09/21/2024 2:45 PM EDT Office Visit [facility] [address] [place], [place] [phone] Kyra Bolton MD [address] [...] mg documented in this encounter Care Teams Motion Picture Cameraman Relationship Specialty Start Date End Date Kyra Bolton MD [address] [place], [place] [address] PCP - General Internal Medicine & Pediatrics 11/05/22 documented as of this encounter
--- OUTSIDE RECORDS SUMMARY | 2024-08-04 10:33 | XMS_ITS | Encounter Summary ---
[facility] Address [address] [place] [address] Care Team Providers Care Boy'S Adviser Name Role Phone Kyra Bolton MD Primary Care Provide r Reason for Referral * MRI/CAT/PET Scan (Routine) - Closed Specialty Diagnoses / Procedures Referred By Rachel Referred To Contact Radiology Diagnoses Other chronic gastritis with hemorrhage Nausea and vomiting, unspecified vomiting type Cannabis hyperemesis syndrome concurrent with and due to cannabis dependence Procedures NM gastric emptying Kyra Bolton MD [address] [place] [address] Phone: tel: fax: [facility] [employer] NUC MED [address] [place] [phone] Phone: tel: Referral ID Status Reason Start Date Expiration Date Visits Re quested Visits Authorized [id number] Closed 06/21/2024 09/20/2025 1 1 Reason for Visit * MRI/CAT/PET Scan (Routine) - Closed Specialty Diagnoses / Procedures Referred By Contac Referred To Contact Radiology Diagnoses Other chronic gastritis with hemorrhage Nausea and vomiting, unspecified vomiting type Cannabis hyperemesis syndrome concurrent with and due to cannabis dependence Procedures NM gastric emptying Kyra Bolton MD [address] [place] [address] Phone: tel: fax: [facility] NUC MED [address] [place] [phone] Phone: tel: Referral ID Status Reason Start Date Expiration Date Visits Re quested Visits Authorized [id number] Closed 06/21/2024 09/20/2025 1 1 Encounter Details Date Type Department Care Team (Late st Contact Info) Description 08/04/2024 10:33 AM EDT - 08/04/2024 11:59 PM EDT Hospital Encounter [facility] [place] NUC MED [address], [place] [address] Kyra Bolton MD [address] [place] [address] Other chronic gastritis with hemorrhage; Nausea and vomiting, unspecified vomiting type; Cannabis hyperemesis syndrome concurrent with and due to cannabis dependence Discharge Disposition: Home or Self Care Social [...] on file documented as of this encounter Medications at Time of Discharge [...] 08/18/19 25 documented as of this encounter Plan of Treatment Upcoming Encounters Date Type Department Care Team (Late st Contact Info) Description 09/14/2024 9:40 AM EDT Lab [facility] [address] [place] [address] 09/21/2024 2:45 PM EDT Office Visit [facility] [address] [place] [address] Kyra Bolton MD [address] [place] [address] documented as of this encounter Procedures Procedure Name Priority Date/Time Associated Diagnosis Comments NM GASTRIC EMPTYING Routine 08/04/2024 1 :49 PM EDT Other chronic gastritis with hemorrhage Nausea and vomiting, unspecified vomiting type Cannabis hyperemesis syndrome concurrent with and due to cannabis dependence documented in this encounter Results * NM Gastric Emptying (08/04/2024 1:49 PM EDT) Anatomical Region Laterality Modality Body N/A Nuclear Medicine 08/04/2024 2:01 PM EDT Impressions 08/04/2024 2:21 PM EDT Impression: No significant gastroparesis/significant retention. Electronically Signed: Chandan Valadez MD 08/04/2024 2:21 PM EDT Workstation ID: [id number] Narrative 08/04/2024 2:21 PM EDT NM GASTRIC EMPTYING Date of Exam: 08/04/2024 10:42 AM EDT Indication: chronic n/v. Comparison: None available. Technique: The patient was given a meal which included 465 uCi of technetium sulfur colloid. Counts were obtained over the stomach in the anterior and posterior projection to evaluate gastric emptying. Findings: 30 minutes: Percent emptying 39% 60 minutes: Percent emptying 62% 120 minutes: Percent emptying 85% 180 minutes: Percent emptying 96% Procedure Note Chandan Valadez MD - 08/04/2024 NM GASTRIC EMPTYING Date of Exam: 08/04/2024 10:42 AM EDT Indication: chronic n/v. Comparison: None available. Technique: The patient was given a meal which included 465 uCi oftechnetium sulfur colloid. Counts were obtained over the stomach in theanterior and posterior projection to evaluate gastric emptying. Findings: 30 minutes: Percent emptying 39% 60 minutes: Percent emptying 62% 120 minutes: Percent emptying 85% 180 minutes: Percent emptying 96% IMPRESSION: Impression: No significant gastroparesis/significant retention. Electronically Signed: Chandan Valadez MD 08/04/2024 2:21 PM EDT Workstation ID: [id number] Kyra Bolton MD IM NM ORDERABLES Fin al Result documented in this encounter Visit Diagnoses Diagnosis Other chronic gastritis with hemorrhage Nausea and vomiting, unspecified vomiting type Cannabis hyperemesis syndrome concurrent with and due to cannabis dependence documented in this encounter Administered Medications Inactive Administered Medications - up to 3 most recent administrations Medication Order MAR Action Action Date Dose Rate Site technetium sulfur colloid (NYCOMED-SC) solution 1 dose 1 dose, Oral, Once in Imaging, On Jenelle 08/04/24 at 1045, For 1 dose, Millicuries: 0.465 Given 08/04/2024 10:43 AM EDT 1 dose documented in this encounter Care Teams Boy'S Adviser Relationship Specialty Start Date End Date Kyra Bolton MD [address] [facility] [address] [place], [place] [id number] PCP - General Internal Medicine & Pediatrics 11/05/22 documented as of this encounter
[2024-09-05] VITALS (10 sets, daily range): BP systolic 91–161; BP diastolic 46–84; PULSE 44–86; RESP 18–20; TEMP 36.4–36.8; O2SAT 97–99; BMI 26.2
--- NOTE | 2024-09-05 13:29 | ED_ITS ---
<Statement entered by Eveline Balderrama DO - 09/07/24 07:05> I was consulted by the CONNER, and we discussed the complexity of the problems being addressed. I approved the treatment and management plan for this patient's care in the emergency department, thus performing a substantive portion of the medical decision making. I signed the care of the patient to Dr. Drew at 3 PM Eveline Balderrama DO Discharge Plan Disposition Patient Disposition: Home, Self-Care Condition: Good Prescriptions Prescriptions: New ondansetron 4 mg tablet,disintegrating 4 mg PO Q6H PRN (Reason: nausea and vomiting) Qty: 10 0RF promethazine 12.5 mg suppository 12.5 mg MD Q6H PRN (Reason: nausea and vomiting) Qty: 12 0RF Rx Instructions: Please utilize if unable to keep down oral medications No Action [id number] 473 ML syrup 10 ml PO QID PRN (Reason: Cough) Qty: 240 0RF tizanidine 4 MG tablet 4 mg PO TID 20 Days Qty: 60 2RF azithromycin 250 MG tablet 250 mg PO DIRECTED Qty: 6 0RF Rx Instructions: Take two (2) tablets on day #1, then one (1) tablet day #2 thru #5 methylprednisolone 4 MG tablet 4 mg PO DIRECTED Qty: 21 0RF Rx Instructions: Take as directed on package instructions fluticasone propionate 120 SPR/BOT bottle 1 spr NS DAILY Qty: 1 0RF Rx Instructions: each nostril daily ondansetron 4 mg tablet,disintegrating 4 mg PO Q6H PRN (Reason: nausea and vomiting) Qty: 10 0RF Referrals Follow up/Referrals: Provider,Referral, MD [Referring, Medical] - See instructions Activity Restrictions/Add. Instructions Additional Instructions/Restrictions: Please return to the emergency department with any worsening signs or symptoms, please utilize ibuprofen Tylenol, please utilize antinausea medication as needed for symptomatic relief. I would recommend marijuana cessation. Clinical Impressions Clinical Impression: Cannabinoid hyperemesis syndrome Instructions Patient Instructions: DI for Acute Abdominal Pain Print Language Print Language: Spanish Discharge ED Provider: Colton Drew General Adult HPI <LILY Russo - Last Filed: 09/05/24 17:45> General Chief complaint: Abdominal Pain Stated complaint: LLQ pain Time Seen by Provider: 09/05/24 13:26 Mode of Arrival: EMS Source of Information: Patient and Medical Record Limitations: No Limitations History of Present Illness HPI narrative: 43-year-old male presents the emergency department with abdominal pain, nausea and vomiting and poor p.o. intake since 6 AM this morning, patient denies any fever chills chest pain shortness of breath, denies any melena hematochezia hematemesis or hematuria, denies any urinary type symptomatology, denies diarrhea denies constipation, patient is a non-smoker, denies any alcohol use, does admit to marijuana use last night, patient states he smoked a bowl . Other past medical history consistent with cannabinoid hyperemesis syndrome. Was actually seen in the emergency department earlier this month for similar complaint. Patient states he took omeprazole , with little to no relief or symptomatology today. Initial triage vitals are unremarkable. Please note that above description of symptoms, in this electronic medical record under categorization of recalled from ER triage doctor by RN are reflective of an initial nursing assessment, however, is not reflective of my full history and physical exam that was personally taken and clarified. Consequentially, this preceding description of symptoms, which may include the patient's categorized chief complaint in the EMR, do not reflect my personal clinical impression, and the ultimate description of history of present illness and patient stated complaints should be deferred to this section of the note. Unless stated otherwise or congruent with this section of the note, additional signs, symptoms, or incongruence should be interpreted as inaccurate with my clinical impression. Onset (ago): hour(s) Related Data Previous Rx's ?Medication ?Instructions ?Recorded [id number] 10 ml PO QID PRN Co ugh #240 mL 10/05/17 2 mg-30 mg-10 mg/5 mL oral syrup tizanidine 4 mg tablet 4 mg PO TID 20 days #60 tabs 06/24/19 azithromycin 250 mg tablet 250 mg PO DIRECTED #6 ta bs 11/30/19 fluticasone propionate 50 1 spr NS DAILY ##1 11/30/19 mcg/actuation nasal spray,suspension methylprednisolone 4 mg tablet 4 mg PO DIRECTED #21 tabs 11/30/19 ondansetron 4 mg disintegrating 4 mg PO Q6H PRN nausea and 08/23/24 tablet vomiting #10 tabs ondansetron 4 mg disintegrating 4 mg PO Q6H PRN nausea and 09/05/24 tablet vomiting #10 tabs promethazine 12.5 mg rectal 12.5 mg MD Q6H PRN nausea and 09/05/24 suppository vomiting #12 ea Allergies Allergy/AdvReac Type Severity Reaction Status Date / Time cefaclor (From CECLOR) Allergy Unknown Verified 10/05/17 19:03 Penicillins (PENICILLINS) Allergy Unknown Verified 10/05/17 19:03 sumatriptan (From IMITREX) Allergy Unknown Verified 10/05/17 19:03 PFSH <LILY Russo - Last Filed: 09/05/24 17:45> [facility] Disclaimer: The information contained in this section may have been updated after the patient was seen, as this information can be updated by other users. Social History Smoking Status: Current every day smoker tobacco type: cigarettes packs per day: 1 second hand exposure: Yes alcohol intake: never current occupational status: other Travel in the last 8 weeks?: None Have you lived/traveled outside [place] in past 30 days?: No Contact w/someone who lives/traveled outside US past 30 days?: No Exposure to someone with infectious disease in past 14 days?: No Do you have a fever (greater than 100.4 F or 38 C)?: No Have you tested positive for COVID-19?: No Exposed to someone with COVID-19 in past 14 days?: No Do you have a sore throat?: No Do you have a cough?: No Do you have any weakness?: No Do you have any diarrhea?: No Are you experiencing any unusual bleeding?: No Do you have any muscle aches/pain?: No Do you have any abdominal pain?: No Are you experiencing loss of taste or smell?: No Other Medical History Have you received the Flu Vaccine for this season: No Have you received the Pneumonia Vaccine: No <LILY Russo - Last Filed: 09/05/24 17:45> ROS Obtained: Yes All systems reviewed & no additional complaints except as documented Physical Exam <LILY Russo - Last Filed: 09/05/24 17:45> General General appearance: alert, in no apparent distress and anxious Comment: Somewhat anxious appearing, having active vomiting and retching at the bedside, actively writhing around in the bed Head Head exam: atraumatic and normocephalic Eye Eye exam: Present PERRL and EOMI ENT ENT exam: Present mucous membranes moist Neck Neck exam: Present normal inspection Chest Chest inspection: Present normal inspection and symmetric chest wall rise Respiratory Respiratory exam: Present normal lung sounds bilaterally; Absent respiratory distress Cardiovascular Cardiovascular exam: Present regular rate and normal rhythm Abdominal Exam Abdominal exam: Present soft and tenderness Abdominal tenderness: Present diffuse Extremities Exam Extremities exam: Present normal inspection Neurological Exam Neurological exam: Present alert and oriented X3 Psychiatric Psychiatric exam: Present normal affect Skin Skin exam: Present warm and dry Medical Decision Making <LILY Russo - Last Filed: 09/05/24 17:45> Medical Records Medical records reviewed: Yes I reviewed the patient's medical records. Screening: Per USPSTF and CDC recommendations, given the prevalence of disease in our region, it is our hospital?s policy to screen for HIV and viral Hepatitis for all patients aged 18 and over and those with ongoing risk factors. Mekhi Inquiry Pt receiving controlled substance: Yes Mekhi was queried for this patient: No Reason not queried -: Emergent pt cond-no time Risks and benefits of using a controlled substance: were discussed with pt by me Vital Signs: 09/05/24 13:30 09/05/24 14:00 09/05/24 14:30 Temperature 98.2 F Temperature Source Oral Pulse Rate 86 74 Pulse Rate [Right Brachial] 56 L Respiratory Rate 20 Blood Pressure 113/66 99/53 L Blood Pressure [Right Arm] 120/79 Blood Pressure Mean 81 68 Blood Pressure Mean [Right Arm] 92 Blood Pressure Source [Right Arm] Automatic Cuff Blood Pressure Position [Right Arm] Supine 02 Sat by Pulse Oximetry 99 98 98 Oxygen Delivery Method Room Air 09/05/24 15:00 09/05/24 15:31 09/05/24 16:01 Temperature Temperature Source Pulse Rate 44 L 45 L 56 L Pulse Rate [Right Brachial] Respiratory Rate Blood Pressure 100/52 L 91/46 L 161/84 H Blood Pressure [Right Arm] Blood Pressure Mean 66 56 105 Blood Pressure Mean [Right Arm] Blood Pressure Source [Right Arm] Blood Pressure Position [Right Arm] 02 Sat by Pulse Oximetry 99 Oxygen Delivery Method 09/05/24 16:30 09/05/24 17:00 09/05/24 17:30 Temperature Temperature Source Pulse Rate 49 L Pulse Rate [Right Brachial] Respiratory Rate Blood Pressure 158/81 H 158/77 H 144/71 H Blood Pressure [Right Arm] Blood Pressure Mean 106 104 95 Blood Pressure Mean [Right Arm] Blood Pressure Source [Right Arm] Blood Pressure Position [Right Arm] 02 Sat by Pulse Oximetry Oxygen Delivery Method Lab Data Lab results reviewed: Yes I reviewed the patient's lab results. Lab Results 09/05/24 15:47: WBC 14.5 H, RBC 4.72, Hgb 14.7, Hct 42.7, MCV 90.5, MCH 31.1, MCHC 34.4, RDW 12.9, Plt Count 312, MPV 9.9, Neut % (Auto) 84.2 H, Lymph % (Auto) 11.1, [place] % (Auto) 4.1, Eos % (Auto) 0.1, Baso % (Auto) 0.2, Neut # (Auto) 12.2 H, Lymph # (Auto) 1.6, [place] # (Auto) 0.6, Eos # (Auto) 0.0, Baso # (Auto) 0.0, Sodium 138, Potassium 4.0, Chloride 107, Carbon Dioxide 27, Anion Gap 8.0, BUN 11, Creatinine 0.70, Estimated Creat Clear 159, Estimated GFR 124, Est GFR ( Amer) 150, Glucose 96, Calcium 9.5, Magnesium 1.8, Total Bilirubin 1.3, AST 21, ALT 18, Alkaline Phosphatase 84, Total Protein 7.1, Albumin 3.7, Globulin 3.4 H, Albumin/Globulin Ratio 1.1, Lipase 50, HCV Ab KARLA w/Rflx PCR Qn Negative, HIV Ag/Ab Combo Qual Negative 09/05/24 16:31: Urine Color Yellow, Urine Appearance Clear, Urine pH 8.0, Ur Specific [place] 1.015, Urine Protein Trace, Urine Glucose (UA) Negative, Urine Ketones Negative, Urine Blood 3+ A, Urine Nitrate Negative, Urine Bilirubin Negative, Urine Urobilinogen 0.2, Ur Leukocyte Esterase Negative, Urine RBC 5- 10, Urine WBC Occasional, Ur Squamous Epith Cells Occasional, Amorphous Sediment 1+, Urine Bacteria 4+, Urine Opiates Screen Negative, Urine Methadone Screen Negative, Ur Barbituates Screen Negative, Ur Phencyclidine Scrn Negative, Ur Amphetamines Screen Negative, U Benzodiazepines Scrn Negative, Urine Cocaine Screen Negative, U Marijuana (THC) Screen Positive H 09/05/24 15:47 09/05/24 15:47 Orders (Tests/Meds): ED MEDICATIONS Generic Name Dose Route Start Last Admin Trade Name Fabian PRN Reason Stop Dose Admin Sodium Chloride 10 ml 09/05/24 16:39 09/05/24 16:40 Sodium Chloride 0.9% 10ml Syr (Rad Only) IV 10/05/24 16:38 10 ml NEEDED PRN Administration Maintain IV Site Discontinued Medications Generic Name Dose Route Start Last Admin Trade Name Fabian PRN Reason Stop Dose Admin Droperidol 1.25 mg 09/05/24 13:27 09/05/24 13:41 Droperidol 5mg/2ml Vial IV 09/05/24 13:28 1.25 mg ONCE ONE Administration Droperidol 1.25 mg 09/05/24 16:22 09/05/24 16:27 Droperidol 5mg/2ml Vial IV 09/05/24 16:23 1.25 mg ONCE ONE Administration Lactated Ringer's 1,000 mls @ 999 mls/hr 09/05/24 13:28 09/05/24 13:41 Lactated Ringer's 1000 Ml Bag IV 09/05/24 14:28 999 mls/hr .Q1H1M ONE Administration Iopamidol 75 ml 09/05/24 16:39 09/05/24 16:40 Iopamidol-370 (76%);100ml Bottle IV 09/05/24 16:40 75 ml ONCE ONE Administration Ketorolac Tromethamine 15 mg 09/05/24 13:27 09/05/24 13:41 Ketorolac 30mg/Ml Vial IV 09/05/24 13:28 15 mg ONCE ONE Administration ORDERS Category Date Time Status CT abdomen pelvis w con Stat Cat Scan 09/05/24 16:21 Completed Complete Blood Count Auto Diff Stat Lab 09/05/24 15:47 Completed Comprehensive Metabolic Panel Stat Lab 09/05/24 15:47 Completed HIV Combo Stat Lab 09/05/24 15:47 Completed Hepatitis C Ab Qual. W/ RFX Stat Lab 09/05/24 15:47 Completed Lipase Stat Lab 09/05/24 15:47 Completed Magnesium Stat Lab 09/05/24 15:47 Completed UDS [Drug Screen,Urine] Stat Lab 09/05/24 16:31 Completed Urinalysis and Microscopic Stat Lab 09/05/24 16:31 Completed Urine Culture Stat Micro 09/05/24 16:31 Received Medical Decision Narrative: 43-year-old male presents emergency department with abdominal pain nausea and vomiting poor p.o. intake today, differential diagnosis include but not limited to, gastritis, pancreatitis, colitis, ileitis, cannabinoid hyperemesis syndrome, gastroenteritis among others. I discussed this patient's case with the attending physician Dr. Balderrama, and attending physician Dr. Drew Will obtain basic laboratory studies, EKG, UDS lipase magnesium level, UA, give 1 L LR IV, will give 1.25 mg IV droperidol, and 50 mg IV Toradol for pain and nausea and vomiting. CBC notable for mild leukocytosis 14.5 CMP is within normal limits, no electrolyte derangement, lipase in normal limits. I was notified by nursing staff at approximately 4:15 PM the patient is still having some active nausea, vomiting and retching, because of leukocytosis and persistent nausea and vomiting even after droperidol IV administration, will obtain CT abdomen pelvis with contrast for further evaluation as characterization, and will give additional dose of 1.25 IV droperidol. Urinalysis notable for 3+ hematuria, negative nitrites, negative leukocyte esterase, does have 4+ bacteria. UDS is positive for marijuana I reviewed the patient's CT abdomen pelvis with contrast along the corresponding radiologic report, bladder wall thickening possibly artifactual from decompression but consider urinalysis excluding any underlying urinary tract pression or cystitis, mild diffuse hepatic steatosis. Reexamination of the patient approximately 5:42 PM, patient is resting comfortably in bed, no further episodes of emesis or retching, patient has remained hemodynamically stable throughout his time in the emergency department, pain is improved, recommend marijuana sensation, capsaicin, warm showers, ibuprofen Tylenol, will prescribe 4 mg p.o. sublingual Zofran as needed for nausea and vomiting. Patient voiced understanding and agreed with current treatment plan/discharge plan. Patient has no symptomatic dysuria, thus will wait for urine culture based on urinalysis results. Patient was given strict ED return precautions. <Eveline Balderrama, DO - Last Filed: 09/05/24 13:44> Vital Signs: 09/05/24 13:30 09/05/24 14:00 09/05/24 14:30 Temperature 98.2 F Temperature Source Oral Pulse Rate 86 74 Pulse Rate [Right Brachial] 56 L Respiratory Rate 20 Blood Pressure 113/66 99/53 L Blood Pressure [Right Arm] 120/79 Blood Pressure Mean 81 68 Blood Pressure Mean [Right Arm] 92 Blood Pressure Source [Right Arm] Automatic Cuff Blood Pressure Position [Right Arm] Supine 02 Sat by Pulse Oximetry 99 98 98 Oxygen Delivery Method Room Air 09/05/24 15:00 09/05/24 15:31 09/05/24 16:01 Temperature Temperature Source Pulse Rate 44 L 45 L 56 L Pulse Rate [Right Brachial] Respiratory Rate Blood Pressure 100/52 L 91/46 L 161/84 H Blood Pressure [Right Arm] Blood Pressure Mean 66 56 105 Blood Pressure Mean [Right Arm] Blood Pressure Source [Right Arm] Blood Pressure Position [Right Arm] 02 Sat by Pulse Oximetry 99 Oxygen Delivery Method 09/05/24 16:30 09/05/24 17:00 09/05/24 17:30 Temperature Temperature Source Pulse Rate 49 L Pulse Rate [Right Brachial] Respiratory Rate Blood Pressure 158/81 H 158/77 H 144/71 H Blood Pressure [Right Arm] Blood Pressure Mean 106 104 95 Blood Pressure Mean [Right Arm] Blood Pressure Source [Right Arm] Blood Pressure Position [Right Arm] 02 Sat by Pulse Oximetry Oxygen Delivery Method Lab Data Lab Results 09/05/24 15:47: WBC 14.5 H, RBC 4.72, Hgb 14.7, Hct 42.7, MCV 90.5, MCH 31.1, MCHC 34.4, RDW 12.9, Plt Count 312, MPV 9.9, Neut % (Auto) 84.2 H, Lymph % (Auto) 11.1, [place] % (Auto) 4.1, Eos % (Auto) 0.1, Baso % (Auto) 0.2, Neut # (Auto) 12.2 H, Lymph # (Auto) 1.6, [place] # (Auto) 0.6, Eos # (Auto) 0.0, Baso # (Auto) 0.0, Sodium 138, Potassium 4.0, Chloride 107, Carbon Dioxide 27, Anion Gap 8.0, BUN 11, Creatinine 0.70, Estimated Creat Clear 159, Estimated GFR 124, Est GFR ( Amer) 150, Glucose 96, Calcium 9.5, Magnesium 1.8, Total Bilirubin 1.3, AST 21, ALT 18, Alkaline Phosphatase 84, Total Protein 7.1, Albumin 3.7, Globulin 3.4 H, Albumin/Globulin Ratio 1.1, Lipase 50, HCV Ab KARLA w/Rflx PCR Qn Negative, HIV Ag/Ab Combo Qual Negative 09/05/24 16:31: Urine Color Yellow, Urine Appearance Clear, Urine pH 8.0, Ur Specific [place] 1.015, Urine Protein Trace, Urine Glucose (UA) Negative, Urine Ketones Negative, Urine Blood 3+ A, Urine Nitrate Negative, Urine Bilirubin Negative, Urine Urobilinogen 0.2, Ur Leukocyte Esterase Negative, Urine RBC 5- 10, Urine WBC Occasional, Ur Squamous Epith Cells Occasional, Amorphous Sediment 1+, Urine Bacteria 4+, Urine Opiates Screen Negative, Urine Methadone Screen Negative, Ur Barbituates Screen Negative, Ur Phencyclidine Scrn Negative, Ur Amphetamines Screen Negative, U Benzodiazepines Scrn Negative, Urine Cocaine Screen Negative, U Marijuana (THC) Screen Positive H Orders (Tests/Meds): ED MEDICATIONS Generic Name Dose Route Start Last Admin Trade Name Freq PRN Reason Stop Dose Admin Sodium Chloride 10 ml 09/05/24 16:39 09/05/24 16:40 Sodium Chloride 0.9% 10ml Syr (Rad Only) IV 10/05/24 16:38 10 ml NEEDED PRN Administration Maintain IV Site Discontinued Medications Generic Name Dose Route Start Last Admin Trade Name Freq PRN Reason Stop Dose Admin Droperidol 1.25 mg 09/05/24 13:27 09/05/24 13:41 Droperidol 5mg/2ml Vial IV 09/05/24 13:28 1.25 mg ONCE ONE Administration Droperidol 1.25 mg 09/05/24 16:22 09/05/24 16:27 Droperidol 5mg/2ml Vial IV 09/05/24 16:23 1.25 mg ONCE ONE Administration Lactated Ringer's 1,000 mls @ 999 mls/hr 09/05/24 13:28 09/05/24 13:41 Lactated Ringer's 1000 Ml Bag IV 09/05/24 14:28 999 mls/hr .Q1H1M ONE Administration Iopamidol 75 ml 09/05/24 16:39 09/05/24 16:40 Iopamidol-370 (76%);100ml Bottle IV 09/05/24 16:40 75 ml ONCE ONE Administration Ketorolac Tromethamine 15 mg 09/05/24 13:27 09/05/24 13:41 Ketorolac 30mg/Ml Vial IV 09/05/24 13:28 15 mg ONCE ONE Administration ORDERS Category Date Time Status CT abdomen pelvis w con Stat Cat Scan 09/05/24 16:21 Completed Complete Blood Count Auto Diff Stat Lab 09/05/24 15:47 Completed Comprehensive Metabolic Panel Stat Lab 09/05/24 15:47 Completed HIV Combo Stat Lab 09/05/24 15:47 Completed Hepatitis C Ab Qual. W/ RFX Stat Lab 09/05/24 15:47 Completed Lipase Stat Lab 09/05/24 15:47 Completed Magnesium Stat Lab 09/05/24 15:47 Completed UDS [Drug Screen,Urine] Stat Lab 09/05/24 16:31 Completed Urinalysis and Microscopic Stat Lab 09/05/24 16:31 Completed Urine Culture Stat Micro 09/05/24 16:31 Received ECG Data Tracing #1: I reviewed this ECG and interpreted as documented below: Sinus bradycardia with a ventricular rate of [address] changes concerning for STEMI. Normal intervals ECG initial impression date: 09/05/24 ECG initial impression time: 13:43 <Colton Drew MD - Last Filed: 09/05/24 18:27> Vital Signs: 09/05/24 13:30 09/05/24 14:00 09/05/24 14:30 Temperature 98.2 F Temperature Source Oral Pulse Rate 86 74 Pulse Rate [Right Brachial] 56 L Respiratory Rate 20 Blood Pressure 113/66 99/53 L Blood Pressure [Right Arm] 120/79 Blood Pressure Mean 81 68 Blood Pressure Mean [Right Arm] 92 Blood Pressure Source [Right Arm] Automatic Cuff Blood Pressure Position [Right Arm] Supine 02 Sat by Pulse Oximetry 99 98 98 Oxygen Delivery Method Room Air 09/05/24 15:00 09/05/24 15:31 09/05/24 16:01 Temperature Temperature Source Pulse Rate 44 L 45 L 56 L Pulse Rate [Right Brachial] Respiratory Rate Blood Pressure 100/52 L 91/46 L 161/84 H Blood Pressure [Right Arm] Blood Pressure Mean 66 56 105 Blood Pressure Mean [Right Arm] Blood Pressure Source [Right Arm] Blood Pressure Position [Right Arm] 02 Sat by Pulse Oximetry 99 Oxygen Delivery Method 09/05/24 16:30 09/05/24 17:00 09/05/24 17:30 Temperature Temperature Source Pulse Rate 49 L Pulse Rate [Right Brachial] Respiratory Rate Blood Pressure 158/81 H 158/77 H 144/71 H Blood Pressure [Right Arm] Blood Pressure Mean 106 104 95 Blood Pressure Mean [Right Arm] Blood Pressure Source [Right Arm] Blood Pressure Position [Right Arm] 02 Sat by Pulse Oximetry Oxygen Delivery Method Lab Data Lab Results 09/05/24 15:47: WBC 14.5 H, RBC 4.72, Hgb 14.7, Hct 42.7, MCV 90.5, MCH 31.1, MCHC 34.4, RDW 12.9, Plt Count 312, MPV 9.9, Neut % (Auto) 84.2 H, Lymph % (Auto) 11.1, [place] % (Auto) 4.1, Eos % (Auto) 0.1, Baso % (Auto) 0.2, Neut # (Auto) 12.2 H, Lymph # (Auto) 1.6, [place] # (Auto) 0.6, Eos # (Auto) 0.0, Baso # (Auto) 0.0, Sodium 138, Potassium 4.0, Chloride 107, Carbon Dioxide 27, Anion Gap 8.0, BUN 11, Creatinine 0.70, Estimated Creat Clear 159, Estimated GFR 124, Est GFR ( Amer) 150, Glucose 96, Calcium 9.5, Magnesium 1.8, Total Bilirubin 1.3, AST 21, ALT 18, Alkaline Phosphatase 84, Total Protein 7.1, Albumin 3.7, Globulin 3.4 H, Albumin/Globulin Ratio 1.1, Lipase 50, HCV Ab KARLA w/Rflx PCR Qn Negative, HIV Ag/Ab Combo Qual Negative 09/05/24 16:31: Urine Color Yellow, Urine Appearance Clear, Urine pH 8.0, Ur Specific [place] 1.015, Urine Protein Trace, Urine Glucose (UA) Negative, Urine Ketones Negative, Urine Blood 3+ A, Urine Nitrate Negative, Urine Bilirubin Negative, Urine Urobilinogen 0.2, Ur Leukocyte Esterase Negative, Urine RBC 5- 10, Urine WBC Occasional, Ur Squamous Epith Cells Occasional, Amorphous Sediment 1+, Urine Bacteria 4+, Urine Opiates Screen Negative, Urine Methadone Screen Negative, Ur Barbituates Screen Negative, Ur Phencyclidine Scrn Negative, Ur Amphetamines Screen Negative, U Benzodiazepines Scrn Negative, Urine Cocaine Screen Negative, U Marijuana (THC) Screen Positive H Orders (Tests/Meds): ED MEDICATIONS Generic Name Dose Route Start Last Admin Trade Name Freq PRN Reason Stop Dose Admin Sodium Chloride 10 ml 09/05/24 16:39 09/05/24 16:40 Sodium Chloride 0.9% 10ml Syr (Rad Only) IV 10/05/24 16:38 10 ml NEEDED PRN Administration Maintain IV Site Discontinued Medications Generic Name Dose Route Start Last Admin Trade Name Freq PRN Reason Stop Dose Admin Droperidol 1.25 mg 09/05/24 13:27 09/05/24 13:41 Droperidol 5mg/2ml Vial IV 09/05/24 13:28 1.25 mg ONCE ONE Administration Droperidol 1.25 mg 09/05/24 16:22 09/05/24 16:27 Droperidol 5mg/2ml Vial IV 09/05/24 16:23 1.25 mg ONCE ONE Administration Lactated Ringer's 1,000 mls @ 999 mls/hr 09/05/24 13:28 09/05/24 13:41 Lactated Ringer's 1000 Ml Bag IV 09/05/24 14:28 999 mls/hr .Q1H1M ONE Administration Iopamidol 75 ml 09/05/24 16:39 09/05/24 16:40 Iopamidol-370 (76%);100ml Bottle IV 09/05/24 16:40 75 ml ONCE ONE Administration Ketorolac Tromethamine 15 mg 09/05/24 13:27 09/05/24 13:41 Ketorolac 30mg/Ml Vial IV 09/05/24 13:28 15 mg ONCE ONE Administration ORDERS Category Date Time Status CT abdomen pelvis w con Stat Cat Scan 09/05/24 16:21 Completed Complete Blood Count Auto Diff Stat Lab 09/05/24 15:47 Completed Comprehensive Metabolic Panel Stat Lab 09/05/24 15:47 Completed HIV Combo Stat Lab 09/05/24 15:47 Completed Hepatitis C Ab Qual. W/ RFX Stat Lab 09/05/24 15:47 Completed Lipase Stat Lab 09/05/24 15:47 Completed Magnesium Stat Lab 09/05/24 15:47 Completed UDS [Drug Screen,Urine] Stat Lab 09/05/24 16:31 Completed Urinalysis and Microscopic Stat Lab 09/05/24 16:31 Completed Urine Culture Stat Micro 09/05/24 16:31 Received Medical Decision Narrative: 43-year-old male presents emergency department with abdominal pain nausea and vomiting poor p.o. intake today, differential diagnosis include but not limited to, gastritis, pancreatitis, colitis, ileitis, cannabinoid hyperemesis syndrome, gastroenteritis among others. I discussed this patient's case with the attending physician Dr. Balderrama, and attending physician Dr. Drew Will obtain basic laboratory studies, EKG, UDS lipase magnesium level, UA, give 1 L LR IV, will give 1.25 mg IV droperidol, and 50 mg IV Toradol for pain and nausea and vomiting. CBC notable for mild leukocytosis 14.5 CMP is within normal limits, no electrolyte derangement, lipase in normal limits. I was notified by nursing staff at approximately 4:15 PM the patient is still having some active nausea, vomiting and retching, because of leukocytosis and persistent nausea and vomiting even after droperidol IV administration, will obtain CT abdomen pelvis with contrast for further evaluation as characterization, and will give additional dose of 1.25 IV droperidol. Urinalysis notable for 3+ hematuria, negative nitrites, negative leukocyte esterase, does have 4+ bacteria. UDS is positive for marijuana I reviewed the patient's CT abdomen pelvis with contrast along the corresponding radiologic report, bladder wall thickening possibly artifactual from decompression but consider urinalysis excluding any underlying urinary tract pression or cystitis, mild diffuse hepatic steatosis. Reexamination of the patient approximately 5:42 PM, patient is resting comfortably in bed, no further episodes of emesis or retching, patient has remained hemodynamically stable throughout his time in the emergency department, pain is improved, recommend marijuana sensation, capsaicin, warm showers, ibuprofen Tylenol, will prescribe 4 mg p.o. sublingual Zofran as needed for nausea and vomiting. Patient voiced understanding and agreed with current treatment plan/discharge plan. Patient has no symptomatic dysuria, thus will wait for urine culture based on urinalysis results. Patient was given strict ED return precautions. Colton Drew: I was consulted by the CONNER, and we discussed the complexity of the problems being addressed. I approved the treatment and management plan for this patient's care in the emergency department, thus performing a substantive portion of the medical decision making. Patient has equivocal urine with hematuria, he will follow-up on an outpatient basis for this which was directed by the CONNER. Given that he does not have symptomatic dysuria we will not treat empirically for urinary tract infection and wait for culture to grow out. Patient tolerated p.o. prior to discharge. Critical Care <LILY Russo - Last Filed: 09/05/24 17:45> Critical Care Time Critical Care Time: No
[2024-09-05] MEDS: droPERidol 5MG/2ML VIAL 1.25 MG IV ×2 (13:41→16:27)
[2024-09-05] MEDS: LACTATED RINGERS 1000ML 1,000 ML 999 ML IV (13:41)
[2024-09-05] MEDS: KETOROLAC 30MG/ML VIAL 15 MG IV (13:41)
--- NOTE | 2024-09-05 13:42 | ECG_ITS ---
APPROVED REPORT Exam: Resting ECG HR:48 bpm ECG Measurements Heart Rate 48 AXES IN 134 P 78 QRSd 90 QRS 83 QT 430 T 73 QTc 396 Conclusion SINUS BRADYCARDIA BORDERLINE ECG UNCONFIRMED REPORT Electronically signed by : ALEXANDRIA FERNANDES, 09/06/2024 03:49:41
--- OUTSIDE RECORDS SUMMARY | 2024-09-05 13:43 | XMS_ITS | Data Portability ---
Author Organization [facility], DME [facility] Address [address] [facility] [address] [place] [phone] Care Team Providers Care International Project Engineer Name Role Phone JANUSZ VICTORIA Primary Care Provider JANUSZ VICTORIA Referring Provider Assessment Encounter Date Assessment Date Assessment LastModified by Organization Details LastModified Time 12/11/2022 12/11/2022 42-year-old [id number] male with: 1. Bilateral wrist carpal tunnel [...] 3 or more view 2022 023 nfoeger [facility], [address], [place], [address], 3 21:28:49 XR, cervical spine, 2 or 3 view 2022 023 nfoeger [facility], [address], [place], [address], 3 21:29:01 Medication Orders None recorded. Patient TargetsNo targets recorded. Patient Instructions Encounter Date Encounter Id Patient Instructions Last Modified By Organization Details Last Modified Time 12/11/2022 [id number] 1. Corticosteroi d injection of bilateral wrist carpal tunnel today, see below. 2. Referral for bilateral upper extremity electrodiagnostic studies to evaluate for severity of carpal tunnel syndrome. 3. As tolerated, he will wear nighttime cock-up wrist braces. 4. Follow-up after electrodiagnostic studies are complete, sooner if needed. Diagnosis: Bilateral wrist carpal tunnel syndrome Procedure: Corticosteroid injection of the above (CPT 24350 x2) The risks of the procedure including [...] more view No observ ation record ed. [facility] [address], [place], [address], 12/11/2022 21:28:48 12/12/19 23 12/11/2022 XR, cervi amadou spine , 2 or 3 view No observ ation record ed. [facility] [address], [place], [address], 12/11/2022 21:29:01 Result Notes None recorded. Problems Name Problem SNOMED Code Status Onset Date Resolution Date Notes Provider Name and Address Organization Details Recorded Time Numbness of hand 607035847 Active 023 Nick Naranjo MD [address], [place], [address] , [facility] 11:12:10 Problem Notes None recorded. Procedures Surgical History Date Name Laterality Status Provider Name and Address Organization Details Recorded Time Knee Surgery completed Nick Naranjo MD [address], [place], [address], [facility] 12/11/2022 10:27:25 ENT Surgery completed Nick Naranjo MD [address], [place], [address], [facility] 12/11/2022 10:27:25 Imaging Results [...] Current Every Day Smoker Nick Naranjo MD [address], [address], [facility] 12/11/2022 10:27:21 Do [...] Do You Have A Medical Power Of Senior Payroll Manager? No Information not available 12/11/2022 At What [...] Medical History Condition Response Anxiety Disorder Y MRSA Headaches/Migraines Y Depression Y Asthma Y Past Encounters Encounter ID Performer Location Encounter Start Date Encounter Closed Date Diagnosis/Indication Diagnosis SNOMED-CT Code Diagnosis ICD10 Code Diagnosis Note [id number] Nick Naranjo MD [facility] [address] [place], [place] [id number] 12/11/2022 09:28:28 12/11/2022 11:15:39 Bilateral carpal tunnel syndrome [id number] 3867285 G56.03 Numbness of hand 4924175 04 R20.0 Health Concerns Section Related Observation LastModified by Organization Detai ls LastModified Time None Recorded Concern Status LastModified by Organization Details LastModified Time None Recorded Advance Directives Directive N: Payers Insurance Date Sequence Insurance Name Policy Number Policy Greer Covered Member ID Greer Member ID Guarantor Name 12/11/2022 1 [facility] [place] (MEDICAID HMO) Josias Perea [id number] Josias Perea 11/20/2022 1 *SELF PAY* Jennie Perea 12/11/2022 1 *SELF PAY* Jennie Perea 01/15/2023 *SELF PAY* Jennie Perea
--- OUTSIDE RECORDS SUMMARY | 2024-09-05 13:43 | XMS_ITS | Encounter Summary ---
[facility] Address [address] [place] [address] Care Team Providers Care Carton Maker Name Role Phone Kyra Bolton MD Primary Care Provide r Reason for Visit * Reason Comments Med Refill Encounter Details Date Type Department Care Team (Late st Contact Info) Description 02/04/2024 Refill [facility] [address] [facility] [address] [place] [address] Kyra Bolton MD [address] [address] [place] [address] Wheezing; Tobacco use Social History Tobacco [...] Info) Description 09/14/2024 9:40 AM EDT Lab [facility] [address] [place] [address] 09/21/2024 2:45 PM EDT Office Visit [facility] [address] [place] [address] Kyra Bolton MD [address] [place] [address] documented as of this encounter Visit Diagnoses Diagnosis Wheezing Tobacco use documented in this encounter Care Teams Carton Maker Relationship Specialty Start Date End Date Kyra Bolton MD [address] [place] [address] PCP - General Internal Medicine & Pediatrics 11/05/22 documented as of this encounter
--- OUTSIDE RECORDS SUMMARY | 2024-09-05 13:43 | XMS_ITS | Clinical Summary ---
Author Organization [facility] Address [address] [facility] [address] [place] [address] Care Team Providers Care Automobile Seat Cover Installer Name Role Phone Curly Grey MD Primary Care Provider [phone] Social History Tobacco Use Types Packs/Day Years [...] age to complete this topic Insurance [employer] [facility] Care Teams Automobile Seat Cover Installer Relationship Specialty Start Date End Date Curly Grey MD [address] [place] [id number] PCP - General Family Medicine 11/10/23
--- OUTSIDE RECORDS SUMMARY | 2024-09-05 13:43 | XMS_ITS | Clinical Summary ---
[facility] Address [address] [place] [address] Care Team Providers Care Healthcare Management Name Role Phone Kyra Bolton MD Primary Care Provide r Allergies Active Allergy Reactions Criticality Noted Date Comments Banana Anaphylaxis High 10/15/2022 Cefaclor Rash Low 08/23/2020 Ciclopirox Hives Medium 12/14/2020 Melon Anaphylaxis High 10/15/2022 Penicillins Hives Medium 12/14/2020 Prochlorperazine Anxiety,Rash Low 06/22/2023 Teeth clenching [place] Anaphylaxis High 10/15/2022 Sumatriptan Unknown - Low [...] Type Department Care Team Description 08/16/2024 Refill [facility] [address] [place] [address] Kyra Bolton MD Wheezing 08/14/2024 Refill [facility] [address] [place] [address] Kyra Bolton MD Sleep difficulties 08/08/2024 Results Follow-Up [facility] [address] [place] [address] Kyra Bolton MD 08/04/2024 10:33 AM EDT - 08/04/2024 11:59 PM EDT Hospital Encounter [facility] [address] [place] [address] Kyra Bolton MD Other chronic gastritis with hemorrhage; Nausea and vomiting, unspecified vomiting type; Cannabis hyperemesis syndrome concurrent with and due to cannabis dependence Discharge Disposition: Home or Self Care 08/02/2024 Refill [facility] [address] [place] [address] Kyra Bolton MD Sleep difficulties 07/25/2024 Results Follow-Up [facility] [place] [address] [place] [address] David Olivarez MD 07/22/2024 Refill [facility] [address] [place] [address] Kyra Bolton MD Anxiety and depression 07/21/2024 9:10 AM EDT Anesthesia Event [facility] [place] OR [address] [place] [address] Mariel Ferreira, Kinza Najera, SEAMLESS HOSIERY KNITTER 07/21/2024 8:45 AM EDT - 07/21/2024 9:15 AM EDT Surgery [facility] [place] OR [address] [place] [address] David Olivarez MD COLONOSCOPY WITH POLYPECTOMY [82986 (CPT )] 07/21/2024 7:19 AM EDT - 07/21/2024 10:21 AM EDT Hospital Encounter [facility] [place] OR [address] [place] [address] David Olivarez MD Left lower quadrant abdominal pain; Encounter for screening colonoscopy Discharge Disposition: Home or Self Care 07/21/2024 Travel 07/20/2024 Telephone [facility] [address] [place] [address] David Olivarez MD BOWEL PREP 07/20/2024 Refill [facility] [address] [place] [address] Kyra Bolton MD Anxiety and depression 07/18/2024 1:00 PM EDT Office Visit [facility] [address] [place] [address] Antonia Marroquin APRN Left lower quadrant pain (Primary Dx); Encounter for screening colonoscopy 07/18/2024 Prep for Surgery [facility] [place] OR [address] [place] [address] Antonia Marroquin APRN Left lower quadrant abdominal pain (Primary Dx); Encounter for screening colonoscopy 07/18/2024 Travel 07/07/2024 Refill [facility] [address] [place] [address] Kyra Bolton MD Anxiety and depression 06/21/2024 1:45 PM EDT Office Visit [facility] [address] [place], [place] [address] Kyra Bolton MD Esophagitis with gastritis (Primary Dx); Leukocytosis, unspecified type; Sleep difficulties; Other chronic gastritis with hemorrhage; Eosinophilic esophagitis; Nausea and vomiting, unspecified vomiting type; Cannabis hyperemesis syndrome concurrent with and due to cannabis dependence; Tobacco dependence; Anxiety and depression 06/21/2024 Travel 06/08/2024 Telephone [facility] [address] [place] [address] Kyra Bolton MD Med Dose Change from Last 3 Months Immunizations Immunization Administration [...] Alla Fix Developmental Disability Maternal Uncle Warren Fix Learning disabilities Maternal Uncle Warren Fix Anxiety disorder Mother Miguel Londono Breast cancer Mother Miguel Londono Cancer Mother Miguel Spring Depression Mother Miguel Londono Mental illness Mother Miguel Londono Mitral valve prolapse Sister 1 Depression Sister 2 Mario Pacheco Drug abuse Sister 2 Mario Pacheco Relation Name Status Comments Daughter Father César Perea Alive fro m drug overdose Maternal Grandmother Alla Fix Alive Maternal Uncle Warren Fix Alive Mother Miguel Londono Alive Sister 1 [...] [address] [place] [address] 09/21/2024 2:45 PM EDT Office Visit [facility] [address] [place] [address] Kyra Bolton MD [address] [place] [address] Health Maintenance Due Date Last Done Comments Pneumococcal Vaccine 0-49 (1 of 2 - PCV) 2001 ANNUAL PHYSICAL 06/04/2021 COVID-19 Vaccine (2 - season) 10/11/202310/2020 INFLUENZA VACCINE 11/09/2024 11/05/2022 LIPID PANEL 12/21/2024 12/22/2023, 11/05/2022 TDAP/TD VACCINES (2 - Td or Tdap) 02/09/2027 018 HEPATITIS C SCREENING Completed 11/05/2022 Medical Devices Implanted Type Area Squad Sergeant Device Identifier Shelf Expiration Date Model / Serial / Lot L Knee Implant Implant Dev Clip Endo [id number] Contrl Rot 235cm - [id number] Implanted:Qty : 3 on 07/21/2024 by David Olivarez MD at [facility] Implant N/A: Colon Double Fusion [id number] 04/22/2027 [id number] / / [id number] Procedures Procedure Name Priority Date/Time Associated Diagnosis Comments NM GASTRIC EMPTYING Routine 08/04/2024 1 :49 PM EDT Other chronic gastritis with hemorrhage Nausea and vomiting, unspecified vomiting type Cannabis hyperemesis syndrome concurrent with and due to cannabis dependence TISSUE PATHOLOGY EXAM Routine 07/21/2024 9:27 AM EDT Left lower quadrant abdominal pain Encounter for screening colonoscopy RI COLONOSCOPY W/BIOPSY SINGLE/MULTIPLE 07/21/2024 9:10 AM EDT [...] MD 08/04/2024 2:21 PM EDT Workstation ID: [id number] Narrative 08/04/2024 2:21 PM EDT NM GASTRIC [...] MD 08/04/2024 2:21 PM EDT Workstation ID: [id number] Kyra Bolton MD [facility] [place] ORDERABLES Fin al Result * Tissue Pathology Exam (07/21/2024 9:27 AM EDT) Case Report Surgical Pathology Report Case: [id number] Authorizing Provider: David Olivarez MD Collected: 07/21/2024 09:27 AM Ordering Location: [facility] Received: 07/21/2024 09:58 AM OR Pathologist: Wilfrid Alicea MD Specimens: 1) - Large Intestine, Right / Ascending Colon 2) - Large Intestine, Transverse Colon, x2 3) - Large Intestine, Transverse Colon, x2 07/22/2024 10:33 AM EDT [facility] Final Diagnosis 1. Colon, ascending, biopsy: A. Fragments of tubular adenoma. 2. Colon, transverse, biopsy: A. Fragments of tubular adenoma. 3. Colon, transverse, biopsy: A. Fragments of tubulovillous adenoma. 07/22/2024 10:33 AM EDT [facility] at 1033 EDT Gross Description [...] bisected polyps mb/uso/mec 07/22/2024 10:33 AM EDT [facility] Microscopic Description Unless gross only is specified, the final diagnosis for each specimen is based on microscopic examination of tissue. 07/22/2024 10:33 AM EDT [facility] Polyp Ascending colon structure / Unknown 07/21/2024 9:27 AM EDT 07/21/2024 9:58 AM EDT Other (qualifier value) Transverse colon structure / Unknown 07/21/2024 9:32 AM EDT 07/21/2024 9:58 AM EDT Other (qualifier value) Transverse colon structure / Unknown 07/21/2024 9:38 AM EDT 07/21/2024 9:58 AM EDT us David Olivarez MD PATHOLOGY/CYTOLOGY ORDERABLES Final Result [facility]
[address] [place] [address], * Colonoscopy (07/21/2024 9:07 AM EDT) us David Olivarez MD INTERFACE NEEDS Final Result * Telemetry Scan (07/21/2024) [facility] ECG ORDERABLES Final Result * (ABNORMAL) Lipid [...] - 12/23/2023 3:08 AM EST Performed at: [address] [place] [id number] Graduate Nurse: Vasu Short MD, Phone: [phone] Patient Fasting: Y Kyra Bolton MD LAB BLOOD ORDERABLES Final Result [facility] [address] [place] [address], [facility] [address] [id number], * Hepatitis C antibody (11/05/2022 2:31 PM EDT) [facility] Hep C Virus Ab Non Reactive Non [...] 7:10 AM EDT Performed at: 01 - [facility] [address] [place], [place] [id number] Graduate Nurse: Jefe Soria PhD, Phone: [phone] Patient Fasting: Y us Kyra Bolton MD LAB BLOOD ORDERABLES Final Result [facility] [address] [place] [address], [facility] [address] [place] [address], from Last 3 Months or Most Recently Relevant to Health Maintenance Insurance [facility] Care Teams Healthcare Management Relationship Specialty Start Date End Date Kyra Bolton MD [address] [facility] [address] [place], [place] [id number] PCP - General Internal Medicine & Pediatrics 11/05/22
--- OUTSIDE RECORDS SUMMARY | 2024-09-05 13:43 | XMS_ITS | Encounter Summary ---
[facility] Organization [facility] Address [address] [place] [address] Care Team Providers Care Rental Coordinator Name Role Phone Kyra Bolton MD Primary Care Provide r Reason for Visit * Reason Onset Date Comments BOWEL PREP 07/20/2024 Encounter Details Date Type Department Care Team (Late st Contact Info) Description 07/20/2024 Telephone [facility] [address] [facility] [address] [place] [address] David Olivarez MD [address] [facility] [address] [place] [address] BOWEL PREP Social History Tobacco [...] BOWELS NOT MOVING WHILE TAKING IS PREP MANAGING COGNITIVE ENGINEER TO CALL PT AND GO OVER IT WITH HIM documented in this encounter Plan of Treatment Upcoming Encounters Date Type Department Care Team (Late st Contact Info) Description 09/14/2024 9:40 AM EDT Lab [facility] [address] [place] [address] 09/21/2024 2:45 PM EDT Office Visit [facility] [address] [place] [address] Kyra Bolton MD [address] [place] [address] documented as of this encounter Visit Diagnoses Not on filedocumented in this encounter Care Teams Rental Coordinator Relationship Specialty Start Date End Date Kyra Bolton MD [address] [place] [address] PCP - General Internal Medicine & Pediatrics 11/05/22 documented as of this encounter
--- OUTSIDE RECORDS SUMMARY | 2024-09-05 13:43 | XMS_ITS | Encounter Summary ---
[facility] Address [address] [place] [address] Care Team Providers Care Felt Washing Machine Tender Name Role Phone Kyra Bolton MD Primary Care Provide r Reason for Visit * Reason Comments Med Refill Encounter Details Date Type Department Care Team (Late st Contact Info) Description 07/20/2024 Refill [facility] [address] [facility] [address] [place] [address] Kyra Bolton MD [address] [facility] [address] [place] [address] Anxiety and depression Social History Tobacco [...] Info) Description 09/14/2024 9:40 AM EDT Lab [facility] [address] [place] [address] 09/21/2024 2:45 PM EDT Office Visit [facility] [address] [place] [address] Kyra Bolton MD [address] [place] [address] documented as of this encounter Visit Diagnoses Diagnosis Anxiety and depression documented in this encounter Care Teams Felt Washing Machine Tender Relationship Specialty Start Date End Date Kyra Bolton MD [address] [facility] [address] [place] [address] PCP - General Internal Medicine & Pediatrics 11/05/22 documented as of this encounter
--- OUTSIDE RECORDS SUMMARY | 2024-09-05 13:43 | XMS_ITS | Encounter Summary ---
[facility] Organization [facility] Address [address] [place] [address] Care Team Providers Care Video Control Engineer Name Role Phone Kyra Bolton MD Primary Care Provide r Encounter Details Date Type Department Care Team (Latest Contact Info) Description 07/18/2024 Prep for Surgery [facility] OR [address] [facility] [address] [place] [address] Antonia Marroquin, MAT GAUGER [address] [facility] [address] [place], [place] [id number] Left lower quadrant abdominal pain (Primary Dx); [...] Info) Description 09/14/2024 9:40 AM EDT Lab [facility] [address] [place] [address] 09/21/2024 2:45 PM EDT Office Visit [facility] [address] [place] [address] Kyra Bolton MD [address] [place] [address] documented as of this encounter Visit Diagnoses Diagnosis Left lower quadrant abdominal pain- Primary Encounter for screening colonoscopy documented in this encounter Care Teams Video Control Engineer Relationship Specialty Start Date End Date Kyra Bolton MD [address] [place] [address] PCP - General Internal Medicine & Pediatrics 11/05/22 documented as of this encounter
--- OUTSIDE RECORDS SUMMARY | 2024-09-05 13:44 | XMS_ITS | Encounter Summary ---
[facility] Organization [facility] Address [address] [place] [address] Care Team Providers Care Planer Operator / Grader Name Role Phone Kyra Bolton MD Primary Care Provide r Encounter Details Date Type Department Care Team (Late st Contact Info) Description 07/25/2024 Results Follow-Up [facility] [address] [place] [address] David Olivarez MD [address] [facility] [address] [place] [address] Social History Tobacco Use Types [...] on filedocumented in this encounter Care Teams Planer Operator / Grader Relationship Specialty Start Date End Date Kyra Bolton MD [address] [place] [address] PCP - General Internal Medicine & Pediatrics 11/05/22 documented as of this encounter
--- OUTSIDE RECORDS SUMMARY | 2024-09-05 13:44 | XMS_ITS | Encounter Summary ---
[facility] Address [address] [place] [address] Care Team Providers Care Geophysical E Logger Name Role Phone Kyra Bolton MD Primary [...] [facility] [address] [facility] [address] [place] [id number] 09/21/2024 2:45 PM EDT Office Visit [facility] [address] [place] [address] Kyra Bolton MD [address] [place] [address] documented as of this encounter Visit Diagnoses Not on filedocumented in this encounter Care Teams Geophysical E Logger Relationship Specialty Start Date End Date Kyra Bolton MD [address] [place] [address] PCP - General Internal Medicine & Pediatrics 11/05/22 documented as of this encounter
--- OUTSIDE RECORDS SUMMARY | 2024-09-05 13:44 | XMS_ITS | Encounter Summary ---
Author Organization [facility] Address [address] [place] [address] Care Team Providers Care Choir Director Name Role Phone Kyra Bolton MD Primary Care Provide r Reason for Visit * Reason Onset Date Comments Med Dose Change 06/08/2024 Encounter Details Date Type Department Care Team (Late st Contact Info) Description 06/08/2024 Telephone [facility] [address] [facility] [address] [place] [address] Kyra Bolton MD [address] [place] [address] Med Dose Change Social History [...] Perea Relationship: Self Best call back number: [phone] What medication are you requesting: TRAZADONE What are your current symptoms: WANTS TO INCREASE DOSAGE FROM 50 MG TO HELP HIM SLEEP NOT BEEN ABLETO SLEEP ON THE LOWER DOSE PLEASE CALL AND ADVISE If a prescription is needed, what is your preferred pharmacy and phone number: [id number] - [place], [place] - [address] [facility] [address] - [phone] PH - [phone] FX documented in this encounter Plan of Treatment Upcoming Encounters Date Type Department Care Team (Late st Contact Info) Description 09/14/2024 9:40 AM EDT Lab [facility] [address] [place] [address] 09/21/2024 2:45 PM EDT Office Visit [facility] [address] [place] [address] Kyra Bolton MD [address] [place], [place] [id number] documented as of this encounter Visit Diagnoses Not on filedocumented in this encounter Care Teams Choir Director Relationship Specialty Start Date End Date Kyra Bolton MD [address] [place] [address] PCP - General Internal Medicine & Pediatrics 11/05/22 documented as of this encounter
--- OUTSIDE RECORDS SUMMARY | 2024-09-05 13:44 | XMS_ITS | Encounter Summary ---
Author Organization [facility] Address [address] [place] [address] Care Team Providers Care Liquor Gallery Operator Name Role Phone Kyra Bolton MD Primary Care Provide r Encounter Details Date Type Department Care Team (Late st Contact Info) Description 08/08/2024 Results Follow-Up [facility] [address] [facility] [address] [place] [address] Kyra Bolton MD [address] [place] [address] Social History Tobacco Use Types Packs/Day [...] Info) Description 09/14/2024 9:40 AM EDT Lab [facility] [address] [place] [address] 09/21/2024 2:45 PM EDT Office Visit [facility] [address] [place] [address] Kyra Bolton MD [address] [place] [address] documented as of this encounter Visit Diagnoses Not on filedocumented in this encounter Care Teams Liquor Gallery Operator Relationship Specialty Start Date End Date Kyra Bolton MD [address] [place] [address] PCP - General Internal Medicine & Pediatrics 11/05/22 documented as of this encounter
--- OUTSIDE RECORDS SUMMARY | 2024-09-05 13:44 | XMS_ITS | Encounter Summary ---
[facility] Address [address] [place] [address] Care Team Providers Care Commercial Attache Name Role Phone Kyra Bolton MD Primary Care Provide r Reason for Visit * Reason Comments Med Refill Encounter Details Date Type Department Care Team (Late st Contact Info) Description 08/02/2024 Refill [facility] [address] [facility] [address] [place] [address] Kyra Bolton MD [address] [facility] [address] [place] [address] Sleep difficulties Social History Tobacco Use [...] Info) Description 09/14/2024 9:40 AM EDT Lab [facility] [address] [facility] [address] [place] [address] 09/21/2024 2:45 PM EDT Office Visit [facility] [address] [place] [address] Kyra Bolton MD [address] [place] [address] documented as of this encounter Visit Diagnoses Diagnosis Sleep difficulties documented in this encounter Care Teams Commercial Attache Relationship Specialty Start Date End Date Kyra Bolton MD [address] [facility] [address] [place] [address] PCP - General Internal Medicine & Pediatrics 11/05/22 documented as of this encounter
--- OUTSIDE RECORDS SUMMARY | 2024-09-05 13:44 | XMS_ITS | Clinical Summary ---
Author Organization [facility] Address [address] [place] [address] Care Team Providers Care Cash Reconciliation Specialist Name Role Phone Kyra Bolton Primary Care Provider [phone] Allergies Active Allergy Reactions Criticality Noted Date [...] daily Med Name: DELTA 8 OIL FROM [employer]ANT PER PATIENT . Active traZODone (DESYREL) [...] EDT - 06/27/2024 3:51 PM EDT Emergency [facility] Emergency Department [address] [place] [address], [place] [address] Eliazar Lowery APRN Gastroenteritis (Primary Dx); Cannabis hyperemesis syndrome concurrent with and due to cannabis abuse Discharge Disposition: Home or Self Care 06/13/2024 8:06 PM EDT - 06/13/2024 11:21 PM EDT Emergency [facility] Emergency Department [address] [place] [address], [place] [address] Shwetha Mcclendon APRN Cannabis hyperemesis syndrome concurrent with and due to cannabis abuse (Primary Dx); Abdominal pain, unspecified abdominal location; Dehydration Discharge Disposition: Home or Self Care 06/06/2024 10:32 PM EDT - 06/07/2024 12:43 AM EDT Emergency [facility] Emergency Department [address] [place] [address] Eliazar Lowery APRN Cannabis hyperemesis syndrome concurrent [...] place to sleep or slept in a fpc (including now)? No 06/26/2023 Sex and Gender [...] Health Maintenance Due Date Last Done Comments Hepatitis B (HepB) Vaccine ( 1 of 3 - 19+ 3-dose series) 2001 Pneumococcal Vaccines 6-49 y o Risk (1 of 2 - PCV) 2001 HPV Vaccine (1 - 3-dose SCDM series) 2009 Colon Cancer Risk Assessment 2022 Annual SDOH [...] this topic Medical Devices Implanted Type Area Scrum Project Manager Device Identifier Shelf Expiration Date Model / Serial / Lot Graft Versa Tendon [id number] - [id number] Implanted:Qty: 1 on 12/25/2020 by Cynthia Vazquez MD at [facility] Grafts Left: Knee [employer] 10/18/2023 [id number] / [id number] / [id number] [place] Suture 5.5 [id number] - [id number] Implanted:Qty: 1 on 12/25/2020 by Cynthia Vazquez MD at [facility] Rods, bars, and connectors Left: Knee [employer] 06/08/2024 [id number] / / [id number] Screw Bio Comp 6x19 [id number] - [id number] Implanted:Qty: 2 on 12/25/2020 by Cynthia Vazquez MD at [facility] Screws, Bolts and Washers Left: Knee [employer] 01/09/2024 [id number] / / [id number] Stent Dbl Pigtl 4.5x24 [id number] - [id number] Implanted:Qty: 1 on 06/23/2023 by Tc Lewis MD at [facility] Urinary [employer] 02/22/2026 [id number] / / [id number] Procedures Procedure Name Priority Date/Time Associated Diagnosis [...] - 11.00 10*3/uL 06/27/2024 2:11 PM EDT [facility] Red Blood Cells 4.89 4.50 - 5.90 10*6/uL 06/27/2024 2:11 PM EDT [facility] Hemoglobin 15.4 13.5 - 17.5 g/dL 06/27/2024 2:11 PM EDT [facility] Hematocrit 43.4 41.0 - 53.0 % 06/27/2024 2:11 PM EDT [facility] Mean Corpuscular Volume 88.8 80.0 - 100.0 fL 06/27/2024 2:11 PM EDT [facility] Mean Corpuscular Hemoglobin 31.5 26.0 - 34.0 pg 06/27/2024 2:11 PM EDT [facility] Mean Corpuscular Hemoglobin Concentration 35.5 31.0 - 37.0 g/dL 06/27/2024 2:11 PM EDT [facility] % Red Blood Cell Distribution Width 12.7 12.0 - 16.8 % 06/27/2024 2:11 PM EDT [facility] Platelet Count 330 140 - 440 10*3/uL 06/27/2024 2:11 PM EDT [facility] Mean Platelet Volume 9.4 8.4 - 12.4 fL 06/27/2024 2:11 PM EDT [facility] % Neutrophils 90.8(H) 45.0 - 80.0 % 06/27/2024 2:11 PM EDT [facility] % Lymphocytes 5.0(L) 15.0 - 50.0 % 06/27/2024 2:11 PM EDT [facility] % Monocytes 3.5 0.0 - 15.0 % 06/27[facility]2024 [facility] % Eosinophils 0.2 0.0 - 7.0 % 06/27/2024 2:11 PM EDT [facility] % Basophils 0.1 0.0 - 2.0 % 06/27/2024 2:11 PM EDT [facility] % Immature Granulocytes 0.4 0.0 - 1.0 % 06/27/2024 2:11 PM EDT [facility] % Nucleated RBCs 0.0 <=0 /100 WBCs 06/27/2024 2:11 [facility] Absolute Neutrophil Count 17.02(H) 2.00 - 8.80 10*3/uL 06/27/2024 2:11 [facility] Absolute Lymphocytes 0.93 0.70 - 5.50 10*3/uL 06/27/2024 2:11 PM EDT [facility] Absolute Monocytes 0.65 0.00 - 1.70 10*3/uL 06/27/2024 2:11 [facility] Absolute Eosinophils 0.04 0.00 - 0.80 10*3/uL 06/27/2024 2:11 [facility] Absolute Basophils 0.02 0.00 - 0.20 10*3/uL 06/27/2024 2:11 PM EDT [facility] Absolute Immature Granulocytes 0.08 0.00 - 0.10 10*3/uL 06/27/2024 2:11 PM EDT [facility] Blood VENOUS BLOOD SPECIMEN / Unknown Venipuncture / Unknown 06/27/2024 2:06 PM EDT 06/27/2024 2:09 PM EDT us Eliazar Lowery APRN LAB BLOOD ORDERABLES María ying Result [facility] [address] [place] [address] * (ABNORMAL) Comprehensive Metabolic Panel(CMP) (06/27/2024 2:06 PM EDT) Only the most recent of3 resultswithin the time period is included. Sodium 141 136 - 145 mmol/L 06/27/2024 2:31 PM EDT [facility] Comment:Excess protein and/o r lipids can falsely decrease sodium levels (pseudo hyponatremia). Potassium 3.9 3.5 - 5.1 mmol/L 06/27/2024 2:31 PM EDT [facility] Comment:Falsely elevated pot assium can occur in patients with high WBC or platelet counts. Chloride 108(H) 98 - 107 mmol/L 06/27/2024 2:31 PM EDT [facility] Comment:Falsely elevated chl oride levels can be seen in patients taking bromide containing medications. Carbon Dioxide 23 22 - 29 mmol/L 06/27/2024 2:31 PM EDT [facility] Anion Gap 10 5 - 13 mmol/L 06/27/2024 2:31 PM EDT [facility] Comment:Calculation: Na - (C l + CO2) Glucose, Random 110(H) 71 - 99 mg/dL 06/27/2024 2:31 PM EDT [facility] Blood Urea Nitrogen (BUN) 10 9 - 21 mg/dL 06/27/2024 2:31 PM EDT [facility] Creatinine, Blood 0.70(L) 0.73 - 1.18 mg/dL 06/27/2024 2:31 PM EDT [facility] BUN/Creatinine Ratio 14.3 RATIO 06/27/2024 2:31 PM EDT [facility] Estimated GFR (Cr) 119 >60 mL/min/1.7 3m2 06/27/2024 2:31 PM EDT [facility] Comment:eGFR calculated base d on IDMS traceable, enzymatic creatinine method using the CKD-EPI 2020 equation. Total Protein 7.5 6.4 - 8.2 g/dL 06/27/2024 2:31 PM EDT [facility] Albumin 4.4 3.5 - 5.2 g/dL 06/27/2024 2:31 PM EDT [facility] Globulin 3.1 1.5 - 4.5 g/dL 06/27/2024 2:31 PM EDT [facility] Albumin/Globulin Ratio 1.4 1.1 - 2.5 RATIO 06/27/2024 2:31 PM EDT [facility] Calcium 9.4 8.4 - 10.2 mg/dL 06/27/2024 2:31 PM EDT [facility] Total Bilirubin 1.0 0.2 - 1.2 mg/dL 06/27/2024 2:31 PM EDT [facility] AST/SGOT 19 5 - 34 U/L 06/27/2024 2:31 PM EDT [facility] ALT/SGPT 25 0 - 55 U/L 06/27/2024 2:31 PM EDT [facility] Alkaline Phosphatase 88 40 - 150 U/L 06/27/2024 2:31 PM EDT [facility] Blood VENOUS BLOOD SPECIMEN / Unknown Venipuncture / Unknown 06/27/2024 2:06 PM EDT 06/27/2024 2:09 PM EDT us Eliazar Lowery APRN LAB BLOOD ORDERABLES María l Result [facility] [address] [place] [address] * (ABNORMAL) Toxicology Screen, Urine (06/13/2024 8:53 PM EDT) Only the most recent of2 resultswithin the time period is included. Amphetamines, Qualitative, Urine Negative Negative 06/13/2024 9:17 PM EDT [facility] Comment:Screening cut off 50 0 ng/mL. This assay has poor sensitivity for methylphenidate (eg Ritalin); a methylphenidate specific assay is needed to monitor compliance with these medications. Barbiturates, Qualitative, Urine Negative Negative 06/13/2024 9:17 PM EDT [facility] Comment:Screening cut off 20 0 ng/mL. Benzodiazepines, Qualitative, Urine Negative Negative 06/13/2024 9:17 PM EDT [facility] Comment:Screening cut off 20 0 ng/mL. Cannabinoids, Qualitative, Urine Positive(A) Negative 06/13/2024 9:17 PM EDT [facility] Comment:Screening cut off 50 ng/mL. Cocaine, Qualitative, Urine Negative Negative 06/13/2024 9:17 PM EDT [facility] Comment:Screening cut off 15 0 ng/mL. Opiates, Qualitative, Urine Negative Negative 06/13/2024 9:17 PM EDT [facility] Comment:Screening cut off 30 0 ng/mL. This assay has poor sensitivity for synthetic opioids like oxycodone, fentanyl, etc. Urine (Urine, Voided) Non-blood Collection / Unknown 06/13/2024 8:53 PM EDT 06/13/2024 9:04 PM EDT Narrative [facility] - 06/13/2024 9:17 PM EDT Testing for medical purposes only. Positive results are not automatically confirmed. us Shwetha Mcclendon TERRAPIN FISHER URINE ORDERABLES Final Result [facility] [address] [place] [address] * Urinalysis with Reflex (06/13/2024 8:52 PM EDT) Only the most recent of2 resultswithin the time period is included. Color, Urine Light-Yellow 06/13/2024 9:09 PM [facility] Clarity, Urine Clear 06/13/2024 9:09 PM [facility] Specific [place], Urine 1.010 1.005 - 1.030 [arb'U] 06/13/2024 9:09 PM [facility] pH, Urine 6.5 5.0 - 9.0 [pH] 06/13/2024 9:09 PM [facility] Protein, Urine Negative Negative, 10 mg/dL, 15 mg/dL, 20 mg/dL, Trace 06/13/2024 9:09 PM [facility] Glucose, Urine Negative Negative 06/13/2024 9:09 PM [facility] Ketones, Urine Negative Negative 06/13/2024 9:09 PM [facility] Bilirubin, Urine Negative Negative mg/dL 06/13/2024 9:09 PM [facility] Blood, Urine Negative Negative [arb'U] 06/13/2024 9:09 PM [facility] Nitrite, Urine Negative Negative 06/13/2024 9:09 PM [facility] Urobilinogen, Urine Normal Normal, 0.2 E.U./dL, 1.0 E.U./dL 06/13/2024 9:09 PM [facility] Leukocyte Esterase, Urine Negative Negative 06/13/2024 9:09 PM [facility] Reflex Microscopic? 06/13/2024 9:09 PM [facility] Comment:Macroscopic only per formed Urine MID-STREAM URINE SPECIMEN / Unknown Non-blood Collection / Unknown 06/13/2024 8:52 PM EDT 06/13/2024 9:01 PM EDT us Shwetha Mcclendon TERRAPIN FISHER URINE ORDERABLES Final Result Performing Organization Address City/[facility]/ZIP Co de Phone Number [facility] [address] [facility] [address] [place] [address] * Lipase (06/13/2024 8:28 PM EDT) Lipase 21 0 - 59 U/L 06/13/2024 8:52 PM EDT [facility] Blood VENOUS BLOOD SPECIMEN / Unknown Venipuncture / Unknown 06/13/2024 8:28 PM EDT 06/13/2024 8:32 PM EDT us Shwetha Arzate Danelle TERRAPIN FISHER LAB BLOOD ORDERABLES Final Re sult Performing Organization Address City/[facility]/ZIP Co de Phone Number [facility] [address] [place] [address] * EKG 12 lead (06/06/2024 10:52 PM EDT) 06/06/2024 10:5 2 PM EDT [facility]07/[facility] 8:09 AM EDT CARDIOLOGY REPORT FACILITY: [facility] PATIENT NAME/: NEHEMIAH LOPEZ 1980 UNIT/AGE/GENDER: AGE: 43 YR GENDER: M UNIT NUMBER: [id number] ACCESSION NUMBER: [id number] DATE OF EXAM: 06/06/2024 22:52 EXAMINATION(S): ECG 12-LEAD FINAL REPORT Procedure: ELECTROCARDIOGRAM RESULT Heart Rate 61 P-R Interval 135 ms QRS Interval 91 ms QT Interval 394 ms QTC Interval 396 ms P [place] 49 deg QRS [place] 37 deg T Wave [place] 49 deg DATE: 06/06/2024 22:52 Sinus rhythm Poor R-wave Progression Summary: Normal ECG Electronically signed by ELI VIERA 06/07/2024 08:08 Procedure Note Jamie Khan MD - 06/07/2024 CARDIOLOGY REPORT FACILITY: [facility] PATIENT NAME/: NEHEMIAH LOPEZ 1980 UNIT/AGE/GENDER: AGE: 43 YR GENDER: M UNIT NUMBER: [id number] ACCESSION NUMBER: [id number] DATE OF EXAM: 06/06/2024 22:52 EXAMINATION(S): ECG 12-LEAD FINAL REPORT Procedure: ELECTROCARDIOGRAM RESULT Heart Rate 61 P-R Interval 135 ms QRS Interval 91 ms QT Interval 394 ms QTC Interval 396 ms P [place] 49 deg QRS [place] 37 deg T Wave [place] 49 deg DATE: 06/06/2024 22:52 Sinus rhythm Poor R-wave Progression Summary: Normal ECG Electronically signed by ELI VIERA 06/07/2024 08:08 us Eliazar Lowery APRN ECG ORDERABLES Final Res ult [facility] from Last 3 Months Insurance [facility] Advance Directives * Full Code (Latest Code Status on File) Date Activated Date Inactivated Comments 06/22/2023 7:22 PM 06/25/2023 3:51 PM Care Teams Cash Reconciliation Specialist Relationship Specialty Start Date End Date Kyra Bolton [address] [facility] [address] [place] [address] PCP - General Internal Medicine 07/01/23
--- OUTSIDE RECORDS SUMMARY | 2024-09-05 13:44 | XMS_ITS | Encounter Summary ---
[facility] Address [address] [place] [address] Care Team Providers Care Auto Brake Technician Name Role Phone Kyra Bolton MD Primary Care Provide r Reason for Visit * Reason Comments Med Refill Encounter Details Date Type Department Care Team (Late st Contact Info) Description 07/07/2024 Refill [facility] [address] [facility] [address] [place] [address] Kyra Bolton MD [address] [facility] [address] [place] [address] Anxiety and depression Social History Tobacco [...] Info) Description 09/14/2024 9:40 AM EDT Lab [facility] [address] [place] [address] 09/21/2024 2:45 PM EDT Office Visit [facility] [address] [place] [address] Kyra Bolton MD [address] [place] [address] documented as of this encounter Visit Diagnoses Diagnosis Anxiety and depression documented in this encounter Care Teams Auto Brake Technician Relationship Specialty Start Date End Date Kyra Bolton MD [address] [place] [address] PCP - General Internal Medicine & Pediatrics 11/05/22 documented as of this encounter
--- OUTSIDE RECORDS SUMMARY | 2024-09-05 13:44 | XMS_ITS | Encounter Summary ---
[facility] Address [address] [place] [address] Care Team Providers Care Mortising Machine Operator Name Role Phone Kyra Bolton [...] 7:31 AM EDT Aleksandra Shannon RN * Unity Suicide Severity Rating Scale (Screener/Recent Self-Report) Question Answer Date of Assessment Author 6. Suicidal Behavior (Lifetime) No 7:31 AM EDT Becki Shannon RN documented as of this encounter Plan of Treatment Upcoming Encounters Date Type Department Care Team (Late st Contact Info) Description 09/14/2024 9:40 AM EDT Lab [facility] [address] [place] [address] 09/21/2024 2:45 PM EDT Office Visit [facility] [address] [place] [address] Kyra Bolton MD [address] [place] [address] documented as of this encounter Visit Diagnoses Not on filedocumented in this encounter Care Teams Mortising Machine Operator Relationship Specialty Start Date End Date Kyra Bolton MD [address] [place] [address] PCP - General Internal Medicine & Pediatrics 11/05/22 documented as of this encounter
--- OUTSIDE RECORDS SUMMARY | 2024-09-05 13:44 | XMS_ITS | Encounter Summary ---
[facility] Address [address] [place] [address] Care Team Providers Care Edger Hand Name Role Phone Kyra Bolton MD Primary Care Provide r Reason for Visit * Reason Comments Med Refill Encounter Details Date Type Department Care Team (Late st Contact Info) Description 08/16/2024 Refill [facility] [address] [facility] [address] [place] [address] Kyra Bolton MD [address] [facility] [address] [place] [address] Wheezing Social History Tobacco Use Types [...] Info) Description 09/14/2024 9:40 AM EDT Lab [facility] [address] [place] [address] 09/21/2024 2:45 PM EDT Office Visit [facility] [address] [place] [address] Kyra Bolton MD [address] [place] [address] documented as of this encounter Visit Diagnoses Diagnosis Wheezing documented in this encounter Care Teams Edger Hand Relationship Specialty Start Date End Date Kyra Bolton MD [address] [place] [address] PCP - General Internal Medicine & Pediatrics 11/05/22 documented as of this encounter
--- OUTSIDE RECORDS SUMMARY | 2024-09-05 13:44 | XMS_ITS | Encounter Summary ---
[facility] Address [address] [place] [address] Care Team Providers Care Cadastral Surveyor Name Role Phone Kyra Bolton MD Primary Care Provide r Reason for Visit * Reason Comments Med Refill Encounter Details Date Type Department Care Team (Late st Contact Info) Description 08/14/2024 Refill [facility] [address] [facility] [address] [place] [address] Kyra Bolton MD [address] [facility] [address] [place] [address] Sleep difficulties Social History Tobacco Use [...] difficulties documented in this encounter Care Teams Cadastral Surveyor Relationship Specialty Start Date End Date Kyra Bolton MD [address] [place] [address] PCP - General Internal Medicine & Pediatrics 11/05/22 documented as of this encounter
--- OUTSIDE RECORDS SUMMARY | 2024-09-05 13:44 | XMS_ITS | Encounter Summary ---
Author Organization [facility] Address [address] [place] [address] Care Team Providers Care Glory Hole Tender Name Role Phone Kyra Bolton MD Primary Care Provide r Reason for Visit * Reason Comments Med Refill Encounter Details Date Type Department Care Team (Late st Contact Info) Description 07/22/2024 Refill [facility] [address] [place] [address] Kyra Bolton MD [address] [place] [address] Anxiety and depression Social [place] [address] Kyra Bolton MD [address] [place] [address] documented as of this encounter Visit Diagnoses Diagnosis Anxiety and depression documented in this encounter Care Teams Glory Hole Tender Relationship Specialty Start Date End Date Kyra Bolton MD [address] [place] [address] PCP - General Internal Medicine & Pediatrics 11/05/22 documented as of this encounter
[2024-09-05 15:55] LABS: Hematocrit 42.7 % (42.0-52.0); Hemoglobin 14.7 g/dL (14.1-18.0); Immature Granulocytes % 0.3 %; Mean Corpuscular HGB Conc 34.4 g/dL (31.8-35.4); Mean Corpuscular Hemoglobin 31.1 pg (27.0-31.2); Mean Corpuscular Volume 90.5 fl (80-94); Nucleated Red Blood Cells % 0 %; Platelet Count 312 K/mm3 (142-424); Red Blood Count 4.72 M/mm3 (4.60-6.20); Red Cell Distribution Width-SD 42.9 fL; White Blood Count 14.5 K/mm3 (4.8-10.8)
[2024-09-05 16:01] LABS: Albumin Level 3.7 g/dl (3.5-5.0); Chloride 107 mmol/L (98-107); Potassium 4.0 mmoL/L (3.5-5.1); Sodium 138 mmol/L (136-145)
[2024-09-05 16:03] LABS: Blood Urea Nitrogen 11 mg/dl (9-20); Creatinine Clearance Estimated 159 mL/min (50-200); Creatinine,Serum 0.70 mg/dl (0.66-1.25); Estimated Glomerular Filt Rate 124 ml/min (>60); GFR (African American) 150 ML/MIN (>60)
[2024-09-05 16:04] LABS: Alanine Aminotransferase 18 U/L (12-78); Albumin/Globulin Ratio 1.1 (1.1-1.8); Alkaline Phosphatase 84 U/L (38-126); Anion Gap 8.0 mEq/L (5-15); Aspartate Amino Transferase 21 U/L (17-59); Bilirubin,Total 1.3 mg/dl (0.2-1.3); Calcium 9.5 mg/dl (8.4-10.2); Carbon Dioxide 27 mmol/L (22.0-30.0); Globulin 3.4 g/dL (1.3-3.2); Glucose 96 mg/dl (74-100); Lipase 50 U/L (23-300); Magnesium 1.8 mg/dl (1.6-2.3); Total Protein,Serum 7.1 g/dl (6.3-8.2)
--- NOTE | 2024-09-05 16:21 | CT_ITS ---
PROCEDURE INFORMATION: Exam: CT Abdomen And Pelvis With Contrast Exam date and time: 09/05/2024 4:39 PM Age: 43 years old Clinical indication: Nausea and vomiting; Abdominal pain; Additional info: Abd pain, nausea, vomiting TECHNIQUE: Imaging protocol: Computed tomography of the abdomen and pelvis with contrast. Radiation optimization: All CT scans at this facility use at least one of these dose optimization techniques: automated exposure control; mA and/or kV adjustment per patient size (includes targeted exams where dose is matched to clinical indication); or iterative reconstruction. Contrast material: ISOVUE; Contrast volume: 75 ml; Contrast route: IV; COMPARISON: CT ABDOMEN PELVIS W CON 08/23/2024 5:02 PM FINDINGS: Liver: The liver is mildly low in density. Gallbladder and biliary ducts: Normal. No calcified stones. No ductal dilation. Pancreas: Normal. No ductal dilation. Spleen: Normal. No splenomegaly. Adrenal glands: Normal. No mass. Kidneys and ureters: Normal. No hydronephrosis. Stomach and bowel: Unremarkable. No obstruction. No mucosal thickening. Appendix: No evidence of appendicitis. Intraperitoneal space: Unremarkable. No free air. No significant fluid collection. Vasculature: Unremarkable. No abdominal aortic aneurysm. Lymph nodes: Unremarkable. No enlarged lymph nodes. Urinary bladder: The bladder is thickened. Reproductive: Unremarkable as visualized. Bones/joints: Unremarkable. No acute fracture. Soft tissues: Unremarkable. IMPRESSION: 1. Bladder wall thickening, possibly artifactual from decompression but consider urinalysis to exclude underlying urinary tract infection or cystitis. 2. Mild diffuse hepatic steatosis..
[2024-09-05 16:33] LABS: Microscopic, Urine URINE MICROSCOPIC (MICROSCOPIC)
[2024-09-05] MEDS: IOPAMIDOL-370 (76%);100ML BOTTLE 75 ML IV (16:40)
[2024-09-05] MEDS: SODIUM CHLORIDE 0.9% 10ML SYR (RAD ONLY) 10 ML IV (16:40)
[2024-09-05 16:50] LABS: Bilirubin,Urine Negative (Negative); Color,Urine YELLOW (Yellow); Glucose,Urine (UA) Negative (Negative); Ketones,Urine Negative (Negative); Leukocyte Esterase,Urine Negative (Negative); PH,Urine 8.0 (5.0-8.5); Protein,Urine TRACE (Negative); Specific Gravity, Urine 1.015 (1.005-1.030); Urobilinogen,Urine 0.2 EU/dl (0.2)
[2024-09-05 16:56] LABS: Barbiturates Screen,Urine Negative ng/ml (<200)
[2024-09-05 16:57] LABS: Amphetamine/Metha Screen,Urine Negative ng/ml (<1000); Benzodiazepines Screen,Urine Negative ng/ml (<200)
[2024-09-05 16:58] LABS: Methadone Screen,Urine Negative ng/ml (<300)
[2024-09-05 17:00] LABS: Opiate Screen,Urine Negative ng/ml (<300)
[2024-09-05 17:01] LABS: Phencyclidine Screen,Urine Negative ng/ml (<25)
[2024-09-05 17:26] LABS: Amorphous Sediment,Urine 1+ /lpf; Bacteria,Urine 4+ /lpf; Squamous Epithelial Cell,Urine Occasional #/hpf (0-5); WBC,Urine Occasional #/hpf (0-3)
--- NOTE | 2024-09-05 17:45 | PEERSUPPORT ---
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 Ps educated pt on CHS and rise in the issues that are found to be from smoking THC that cause CHS in some people. Pt shared he had to quit his job due to not being physically able to work due to symptoms, he is willing to try to not smoke if it will help him. Ps shared personal experience relevant to situation focusing on awareness of self-control and using safe coping skills to reach overall wellness. Pt receptive to ps, agreeing to follow up phone calls for extra support and accountability accepting of a 30 day Challenge in hopes to get better. Ps provided print-outs of safe coping skills, and building discrepancy exercises to motivate change. Ps will follow with pt on 09/06/2024
[2024-09-05 17:47] LABS: Hepatitis C Ab Qual. W/ RFX NEGATIVE (Negative)
--- NOTE | 2024-09-05 18:01 | PC.NURSE ---
PO challenge started with ice water
== END 2024-09-05 19:00 | disposition home or self-care (01) ==
PROVIDERS: Emergency Medicine; Physician Assistant; Emergency Provider Emergency Medicine; PCP Family Medicine
DX: R10.9 Unspecified abdominal pain (principal); F12.188 Cannabis abuse with other cannabis-induced disorder
CPT/HCPCS: 74177; 80053; 80307; 81001; 83690; 83735; 85025; 86803; 87086; 87389; 93005; 96361; 96374; 96375; 96376; 99285; J1790; J1885; J7120; Q9967

== ENCOUNTER 2025-02-03 11:46 | Emergency (ER) | payer OTHER, SELFPAY ==
--- NOTE | 2025-02-03 | ECG_ITS ---
APPROVED REPORT Exam: Resting ECG HR:57 bpm ECG Measurements Heart Rate 57 AXES LA 142 P 76 QRSd 86 QRS 75 QT 418 T 61 QTc 413 Conclusion SINUS BRADYCARDIA BORDERLINE ECG UNCONFIRMED REPORT Sinus bradycardia. No STEMI Electronically signed by : CHARLA TORREZ, 02/03/2025 15:22:21
--- NOTE | 2025-02-03 11:57 | ED_ITS ---
<Statement entered by Nicolas Hayes MD - 02/03/25 15:15> Nicolas Hayes MD: I was consulted by the CONNER, and we discussed the complexity of the problems being addressed. I approve the treatment and management plan for this patient's care in the emergency department, thus performing a substantive portion of the medical decision making. Discharge Plan Disposition Patient Disposition: Home, Self-Care Condition: Good Prescriptions Prescriptions: New ondansetron 4 mg tablet,disintegrating 4 mg PO Q8H PRN (Reason: nausea and vomiting) 3 Days Qty: 9 0RF No Action ychscxuxyitqywa-dirphrssl-FF 473 ML syrup 10 ml PO QID PRN (Reason: Cough) Qty: 240 0RF ondansetron 4 mg tablet,disintegrating 4 mg PO Q6H PRN (Reason: nausea and vomiting) Qty: 10 0RF promethazine 12.5 mg suppository 12.5 mg KS Q6H PRN (Reason: nausea and vomiting) Qty: 12 0RF Rx Instructions: Please utilize if unable to keep down oral medications tizanidine 4 MG tablet 4 mg PO TID 20 Days Qty: 60 2RF azithromycin 250 MG tablet 250 mg PO DIRECTED Qty: 6 0RF Rx Instructions: Take two (2) tablets on day #1, then one (1) tablet day #2 thru #5 methylprednisolone 4 MG tablet 4 mg PO DIRECTED Qty: 21 0RF Rx Instructions: Take as directed on package instructions fluticasone propionate 120 SPR/BOT bottle 1 spr NS DAILY Qty: 1 0RF Rx Instructions: each nostril daily ondansetron 4 mg tablet,disintegrating 4 mg PO Q6H PRN (Reason: nausea and vomiting) Qty: 10 0RF Referrals Follow up/Referrals: Sofie Diaz [Primary Care Provider, Medical] - See instructions Activity Restrictions/Add. Instructions Additional Instructions/Restrictions: You were evaluated on an emergency basis. It is very important that you follow- up with your primary care provider and any specialist who we discussed within the next 2 days in order to better assess your health more comprehensively. For example, incidental findings on imaging or laboratory results that were performed today may be discovered, which do not require immediate medical care, but may impact your health in the future. If your symptoms worsen or persist, please return to the emergency department immediately for reassessment. Take all medications as prescribed. In queue for allowing me to participate in your health care, and I hope you feel better soon. Clinical Impressions Clinical Impression: Cannabinoid hyperemesis syndrome Instructions Patient Instructions: Cannabinoid Hyperemesis Syndrome Print Language Print Language: Albanian Discharge ED Provider: Nicolas Hayes General Adult HPI General Chief complaint: Abdominal Pain Stated complaint: abd pain, vomiting Time Seen by Provider: 02/03/25 11:56 History of Present Illness HPI narrative: 44-year-old male with a history of cannabinoid hyperemesis presents to the emergency department with complaints of nausea, vomiting, diarrhea, abdominal pain that started this morning. He reports that he has been smoking marijuana. He denies fevers. Related Data Previous Rx's ?Medication ?Instructions ?Recorded udnjlrppnpxoraj-jwadvaeafmyrpzr-DD 10 ml PO QID PRN Co ugh #240 mL 10/05/17 2 mg-30 mg-10 mg/5 mL oral syrup tizanidine 4 mg tablet 4 mg PO TID 20 days #60 tabs 06/24/19 azithromycin 250 mg tablet 250 mg PO DIRECTED #6 ta bs 11/30/19 fluticasone propionate 50 1 spr NS DAILY ##1 11/30/19 mcg/actuation nasal spray,suspension methylprednisolone 4 mg tablet 4 mg PO DIRECTED #21 tabs 11/30/19 ondansetron 4 mg disintegrating 4 mg PO Q6H PRN nausea and 08/23/24 tablet vomiting #10 tabs ondansetron 4 mg disintegrating 4 mg PO Q6H PRN nausea and 09/05/24 tablet vomiting #10 tabs promethazine 12.5 mg rectal 12.5 mg KS Q6H PRN nausea and 09/05/24 suppository vomiting #12 ea ondansetron 4 mg disintegrating 4 mg PO Q8H PRN nausea and 02/03/25 tablet vomiting 3 days #9 tabs Allergies Allergy/AdvReac Type Severity Reaction Status Date / Time cefaclor (From CECLOR) Allergy Unknown Verified 10/05/17 19:03 Penicillins (PENICILLINS) Allergy Unknown Verified 10/05/17 19:03 sumatriptan (From IMITREX) Allergy Unknown Verified 10/05/17 19:03 [facility] Disclaimer: The information contained in this section may have been updated after the patient was seen, as this information can be updated by other users. Social History Smoking Status: Current every day smoker tobacco type: cigarettes packs per day: 1 second hand exposure: Yes alcohol intake: never current occupational status: other Travel in the last 8 weeks?: None Have you lived/traveled outside US in past 30 days?: No Contact w/someone who lives/traveled outside US past 30 days?: No Exposure to someone with infectious disease in past 14 days?: No Do you have a fever (greater than 100.4 F or 38 C)?: No Have you tested positive for COVID-19?: No Exposed to someone with COVID-19 in past 14 days?: No Do you have a sore throat?: No Do you have a cough?: No Do you have any weakness?: No Do you have any diarrhea?: No Are you experiencing any unusual bleeding?: No Do you have any muscle aches/pain?: No Do you have any abdominal pain?: No Are you experiencing loss of taste or smell?: No Other Medical History Have you received the Flu Vaccine for this season: No Have you received the Pneumonia Vaccine: No ROS Obtained: Yes other Gastrointestinal Gastrointestingal: Reports abdominal pain, diarrhea, nausea and vomiting Physical Exam Narrative Physical exam: General: Awake, aware HEENT: Normocephalic, no evidence of trauma CV: RRR, no murmurs, rubs, or gallops Pulm: CTA bilaterally with no rhonchi, rales, wheezes ABD: Tenderness to palpation of all quadrants of abdomen with normal active bowel sounds Psych: Animated General General appearance: alert Respiratory Respiratory exam: Present normal lung sounds bilaterally Cardiovascular Cardiovascular exam: Present regular rate Neurological Exam Neurological exam: Present alert Medical Decision Making Medical Records Screening: Per USPSTF and CDC recommendations, given the prevalence of disease in our region, it is our hospital?s policy to screen for HIV and viral Hepatitis for all patients aged 18 and over and those with ongoing risk factors. Mekhi Inquiry Pt receiving controlled substance: No Vital Signs: 02/03/25 12:00 02/03/25 12:00 02/03/25 12:08 Temperature 98.1 F 98.1 F Temperature Source Axillary Pulse Rate 60 63 Pulse Rate [Right] 60 Respiratory Rate 20 20 20 Blood Pressure 139/80 134/69 Blood Pressure [Right Arm] 139/80 Blood Pressure Mean [Right Arm] 99 Blood Pressure Source Automatic Cuff Blood Pressure Position Supine 02 Sat by Pulse Oximetry 100 100 100 Oxygen Delivery Method Room Air 02/03/25 13:12 Temperature Temperature Source Pulse Rate Pulse Rate [Right] Respiratory Rate 12 Blood Pressure 134/69 Blood Pressure [Right Arm] Blood Pressure Mean [Right Arm] Blood Pressure Source Blood Pressure Position 02 Sat by Pulse Oximetry Oxygen Delivery Method Lab Data Lab Results 02/03/25 11:58: WBC 11.0 H, RBC 4.64, Hgb 14.7, Hct 41.7 L, MCV 89.9, MCH 31.7 H , MCHC 35.3, RDW 12.5, Plt Count 423, MPV 9.2, Neut % (Auto) 86.1 H, Lymph % (Auto) 10.3, [place] % (Auto) 2.8, Eos % (Auto) 0.2, Baso % (Auto) 0.2, Neut # (Auto) 9.4 H, Lymph # (Auto) 1.1, [place] # (Auto) 0.3, Eos # (Auto) 0.0, Baso # (Auto) 0.0, Sodium 140, Potassium 4.1, Chloride 107, Carbon Dioxide 27, Anion Gap 10.1, BUN 16, Creatinine 0.80, Estimated Creat Clear 118, Estimated GFR 106, Est GFR ( Amer) 128, Glucose 142 H, Calcium 10.0, Magnesium 2.1, Total Bilirubin 0.5, AST 22, ALT 23, Alkaline Phosphatase 80, Total Protein 7.3, Albumin 4.4, Globulin 2.9, Albumin/Globulin Ratio 1.5, Lipase 52 02/03/25 13:40: Urine Color Yellow, Urine Appearance Clear, Urine pH 8.5, Ur Specific [place] 1.020, Urine Protein Trace, Urine Glucose (UA) Negative, Urine Ketones Negative, Urine Blood Negative, Urine Nitrate Negative, Urine Bilirubin Negative, Urine Urobilinogen 0.2, Ur Leukocyte Esterase Negative, Urine RBC Occasional, Urine WBC None, Ur Squamous Epith Cells Occasional, Urine Bacteria Trace, Urine Opiates Screen Negative, Urine Methadone Screen Negative, Ur Barbituates Screen Negative, Ur Phencyclidine Scrn Negative, Ur Amphetamines Screen Negative, U Benzodiazepines Scrn Negative, Urine Cocaine Screen Negative, U Marijuana (THC) Screen Positive H 02/03/25 11:58 02/03/25 11:58 Orders (Tests/Meds): ED MEDICATIONS Discontinued Medications Generic Name Dose Route Start Last Admin Trade Name Fabian PRCarito Reason Stop Dose Admin Diphenhydramine HCl 50 mg 02/03/25 13:13 02/03/25 13:33 Diphenhydramine 50mg/Ml Vial IV 02/03/25 13:14 50 mg ONCE ONE Administration Droperidol 2.5 mg 02/03/25 12:00 02/03/25 12:07 Droperidol 5mg/2ml Vial IV 02/03/25 12:01 2.5 mg ONCE ONE Administration Sodium Chloride 1,000 mls @ 999 mls/hr 02/03/25 12:00 02/03/25 13:41 Sod Chlor 0.9% 1000ml Bag IV 02/03/25 13:00 Infused .Q1H1M ONE Infusion ORDERS Category Date Time Status CBC w/Auto Diff [Complete Blood Count Auto Diff] Stat Lab 02/03/25 11:58 Completed CMP [Comprehensive Metabolic Panel] Stat Lab 02/03/25 11:58 Completed Drug Screen,Urine Stat Lab 02/03/25 13:40 Completed Lipase Stat Lab 02/03/25 11:58 Completed Magnesium Stat Lab 02/03/25 11:58 Completed Urinalysis and Microscopic Stat Lab 02/03/25 13:40 Completed Medical Decision Narrative: Initial impression of presenting illness: 44-year-old male with a history of cannabinoid hyperemesis presents emergency department complaints of nausea, vomiting, diarrhea, abdominal pain this morning. He reports he is still using marijuana. He denies fevers. Differential diagnosis includes but is not limited to: Cannabinoid hyperemesis, gastritis, gastroenteritis, pancreatitis Patient arrives hemodynamically stable, afebrile, without respiratory distress with vital signs interpreted by myself. Initial physical exam reveals tenderness to palpation of all quadrants of abdomen. Patient has normal active bowel sounds. Patient is very animated in the bed. Is difficult to get a good exam as patient alternates between being curled into a ball and flailing in the bed. Initial diagnostic plan: Abdominal pain workup including urine drug screen, normal saline bolus for hydration, droperidol for symptom relief Results from initial plan were reviewed and interpreted by myself, pertinent positives include: Patient's laboratory studies were nonactionable. Urinalysis was also unremarkable for signs of a urinary tract infection. Patient's urine drug screen was positive for THC. Interventions in the ED: Patient was given normal saline bolus for hydration as well as droperidol and Benadryl for symptom relief. Patient was made aware of the results and the findings, upon reevaluation patient has remained stable throughout stay, symptoms have improved. Upon reevaluation patient appears to be resting more comfortably in bed. He has not had any episodes of vomiting during his ER stay. His vital signs have also remained stable Disposition: Reviewed findings today's workup with patient informed no acute abnormalities were noted other than his urine drug screen being positive for marijuana. Had a discussion with patient regarding his history of cannabinoid hyperemesis. I informed him that if he continues to use marijuana it is likely he will keep having these same episodes over and over again. Advised him that we will treat with Zofran. Recommended that he consume a bland diet and slowly advance as tolerated. Instructed him to return to the emergency department any new or worsening symptoms. Patient is agreeable to plan of care. Patient made aware of findings and had a detailed discussion with symptomatic care and return precautions, patient voiced understanding. Critical Care Critical Care Time Critical Care Time: No
[2025-02-03 12:00] VITALS: BP 139/80; PULSE 60; RESP 20; TEMP 36.7; O2SAT 100; BMI 22.6
[2025-02-03 12:07] LABS: Hematocrit 41.7 % (42.0-52.0); Hemoglobin 14.7 g/dL (14.1-18.0); Immature Granulocytes % 0.4 %; Mean Corpuscular HGB Conc 35.3 g/dL (31.8-35.4); Mean Corpuscular Hemoglobin 31.7 pg (27.0-31.2); Mean Corpuscular Volume 89.9 fl (80-94); Nucleated Red Blood Cells % 0 %; Platelet Count 423 K/mm3 (142-424); Red Blood Count 4.64 M/mm3 (4.60-6.20); Red Cell Distribution Width-SD 41.1 fL; White Blood Count 11.0 K/mm3 (4.8-10.8)
[2025-02-03] MEDS: 0.9 % SODIUM CHLORIDE 1000ML 1,000 ML 999 ML IV (12:07)
[2025-02-03] MEDS: droPERidol 5MG/2ML VIAL 2.5 MG IV (12:07)
[2025-02-03 12:08] VITALS: BP 134/69; PULSE 63; RESP 20; O2SAT 100
[2025-02-03 12:16] LABS: Albumin Level 4.4 g/dl (3.5-5.0); Chloride 107 mmol/L (98-107); Sodium 140 mmol/L (136-145)
[2025-02-03 12:17] LABS: Potassium 4.1 mmoL/L (3.5-5.1)
[2025-02-03 12:19] LABS: Alanine Aminotransferase 23 U/L (12-78); Albumin/Globulin Ratio 1.5 (1.1-1.8); Alkaline Phosphatase 80 U/L (38-126); Anion Gap 10.1 mEq/L (5-15); Aspartate Amino Transferase 22 U/L (17-59); Bilirubin,Total 0.5 mg/dl (0.2-1.3); Blood Urea Nitrogen 16 mg/dl (9-20); Calcium 10.0 mg/dl (8.4-10.2); Carbon Dioxide 27 mmol/L (22.0-30.0); Creatinine Clearance Estimated 118 mL/min (50-200); Creatinine,Serum 0.80 mg/dl (0.66-1.25); Estimated Glomerular Filt Rate 106 ml/min (>60); GFR (African American) 128 ML/MIN (>60); Globulin 2.9 g/dL (1.3-3.2); Glucose 142 mg/dl (74-100); Lipase 52 U/L (23-300); Total Protein,Serum 7.3 g/dl (6.3-8.2)
[2025-02-03 12:20] LABS: Magnesium 2.1 mg/dl (1.6-2.3)
--- OUTSIDE RECORDS SUMMARY | 2025-02-03 12:36 | XMS_ITS | Clinical Summary ---
Author Organization [facility] Address [address] [facility] [address] [place] [address] Care Team Providers Care Head Stock Operator Name Role Phone Curly Grey MD Primary Care Provider [phone] Social History Tobacco Use Types Packs/Day Years [...] of 3 - 19+ 3-dose series) 2001 HPV Vaccines (1 - 3-dose SCD M series) 2009 Depression Risk Screening 02/10/2024 SDOH Screening 02/10/2024 COVID-19 Vaccine (1 - 2024-2 6 season) 2024 Influenza Vaccine (#1) 2024 Zoster Vaccines (1 [...] age to complete this topic Insurance [employer] [facility] Care Teams Head Stock Operator Relationship Specialty Start Date End Date Curly Grey MD [address] [place] [id number] PCP - General Family Medicine 11/10/23
--- OUTSIDE RECORDS SUMMARY | 2025-02-03 12:36 | XMS_ITS | Encounter Summary ---
Author Organization [facility] Address [address] [address] Care Team Providers Care Medical Assisting Instructor Name Role Phone Kyra Bolton MD Primary Care Provide r Encounter Details Date Type Department Care Team (Late st Contact Info) Description 08/08/2024 Results Follow-Up [facility]IMARY [facility]ARE [address] [facility] [address] [address] [facility] [address] [place] [address] Kyra Bolton MD [address] [facility] [address] [address] [address] [place], [place] [id number] Social History Tobacco Use Types Packs/Day Years Used Date Smoking Tobacco: Every Day Cigarettes 1 41.7 Started: 06/10/2003 Passive Smoke Exposure: Past Smokeless [...] as of this encounter Plan of Treatment Not on file documented as of this encounter Visit Diagnoses Not on filedocumented in this encounter Care Teams Medical Assisting Instructor Relationship Specialty Start Date End Date Kyra Bolton MD [address] [facility] [address] [place] [address] PCP - General Internal Medicine & Pediatrics 11/05/22 documented as of this encounter
--- OUTSIDE RECORDS SUMMARY | 2025-02-03 12:36 | XMS_ITS | Data Portability ---
Author Organization [facility], DME [facility] Address [address] [address] [place] [address] Care Team Providers Care Pressing Department Supervisor Name Role Phone JANUSZ VICTORIA Primary Care Provider JANUSZ VICTORIA Referring Provider Assessment Encounter Date Assessment Date Assessment LastModified by Organization Details LastModified Time 12/11/2022 12/11/2022 42-year-old [id number] male with: 1. Bilateral wrist carpal tunnel [...] 3 or more view 2022 023 nfoeger [facility], [address], [place], [address], 3 21:28:49 XR, cervical spine, 2 or 3 view 2022 023 nfoeger [facility], [address], [place], [address], 3 21:29:01 Medication Orders None recorded. Patient TargetsNo targets recorded. Patient Instructions Encounter Date Encounter Id Patient Instructions Last Modified By Organization Details Last Modified Time 12/11/2022 [id number] 1. Corticosteroi d injection of bilateral wrist carpal tunnel today, see below. 2. Referral for bilateral upper extremity electrodiagnostic studies to evaluate for severity of carpal tunnel syndrome. 3. As tolerated, he will wear nighttime cock-up wrist braces. 4. Follow-up after electrodiagnostic studies are complete, sooner if needed. Diagnosis: Bilateral wrist carpal tunnel syndrome Procedure: Corticosteroid injection of the above (CPT 28392 x2) The risks of the procedure including [...] more view No observ ation record ed. [facility] [address], [place], [address], 12/11/2022 21:28:48 12/12/19 23 12/11/2022 XR, cervi amadou spine , 2 or 3 view No observ ation record ed. [facility] [address], [place], [address], 12/11/2022 21:29:01 Result Notes None recorded. Problems Name Problem SNOMED Code Status Onset Date Resolution Date Notes Provider Name and Address Organization Details Recorded Time Numbness of hand [id number] Active 023 Nick Naranjo MD [address], [place], [address] , [facility] 11:12:10 Problem Notes None recorded. Procedures Surgical History Date Name Laterality Status Provider Name and Address Organization Details Recorded Time Knee Surgery completed Nick Naranjo MD [address], [place], [address], [facility] 12/11/2022 10:27:25 ENT Surgery completed Nick Naranjo MD [address], [place], [address], [facility] 12/11/2022 10:27:25 Imaging Results None [...] Current Every Day Smoker Nick Naranjo MD [address] [facility] [address], [address], [facility] 12/11/2022 10:27:21 Do [...] Do You Have A Medical Power Of General Partner? No Information not available 12/11/2022 At What [...] Diagnosis SNOMED-CT Code Diagnosis ICD10 Code Diagnosis IMO Codes Diagnosis Note [id number] Nick Naranjo MD [facility] [address] [facility] [address] [place] [address] 12/11/2022 09:28:28 12/11/2022 11:15:39 Bilateral carpal tunnel syndrome [id number] G56.03 Numbness of hand 1042438 04 R20.0 Health Concerns Section Related Observation LastModified by Organization Detai ls LastModified Time None Recorded Concern Status LastModified by Organization Details LastModified Time None Recorded Advance Directives Directive N: Payers Insurance Date Sequence Insurance Name Policy Number Policy Greer Covered Member ID Greer Member ID Guarantor Name 12/11/2022 1 [facility] (MEDICAID HMO) Josias Perea [id number] Josias Perea 11/20/2022 1 *SELF PAY* Jennie Perea 12/11/2022 1 *SELF PAY* Jennie Perea 01/15/2023 *SELF PAY* Jennie Perea Notes Date Note Type Note Provider Name and Address Organization Details Recorded Time 12/11/2022 text/html 42y/o zgnum-nyeo-jlbsyxtb male c/o bilateral hand pain and numbness [...] night 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 Nick Naranjo MD [address] [address], [place], [address], [facility] 12/11/2022 21:32:18
--- OUTSIDE RECORDS SUMMARY | 2025-02-03 12:36 | XMS_ITS | Encounter Summary ---
Author Organization [facility] Address [address] [place] [id number] Care Team Providers Care Mental Health Coordinator Name Role Phone Kyra Bolton MD Primary Care Provide r Encounter Details Date Type Department Care Team (Late st Contact Info) Description 07/25/2024 Results Follow-Up [facility] [address] [place] [address] David Olivarez MD [address] [facility] [address] [place], [place] [id number] Social History Tobacco Use Types Packs/Day Years [...] on filedocumented in this encounter Care Teams Mental Health Coordinator Relationship Specialty Start Date End Date Kyra Bolton MD [facility] [address] [place] [address] PCP - General Internal Medicine & Pediatrics 11/05/22 documented as of this encounter
--- OUTSIDE RECORDS SUMMARY | 2025-02-03 12:36 | XMS_ITS | Clinical Summary ---
Author Organization [facility] Address [address] [place] [id number] Care Team Providers Care Coal Crusher Operator Name Role Phone Kyra Bolton Primary Care Provider [phone] Allergies Active Allergy Reactions Criticality Noted Date [...] daily Med Name: DELTA 8 OIL FROM [employer] PER PATIENT . Active traZODone (DESYREL) [...] Intractable abdominal pain 06/22/2023 Ureteral stone 06/22/2023 Social History Tobacco Use Types Packs/Day Years [...] place to sleep or slept in a senior living (including now)? No 06/26/2023 Sex and Gender [...] (2 - Td or Tdap) 02/09/2027 02/09/2017 HPV Vaccine (No Doses Required) Completed Haemophilus Influenzae Type B (Hib) Vaccine Aged [...] this topic Medical Devices Implanted Type Area Hole Digger Operator Device Identifier Shelf Expiration Date Model / Serial / Lot Graft Versa Tendon [id number] - [id number] Implanted:Qty: 1 on 12/25/2020 by Cynthia Vazquez MD at [facility] Grafts Left: Knee [employer] 10/18/2023 [id number] / [id number] / [id number] Java Suture 5.5 [id number] - [id number] Implanted:Qty: 1 on 12/25/2020 by Cynthia Vazquez MD at [facility] Rods, bars, and connectors Left: Knee [employer] 06/08/2024 [id number] / / [id number] Screw Bio Comp 6x19 [id number] - [id number] Implanted:Qty: 2 on 12/25/2020 by Cynthia Vazquez MD at [facility] Screws, Bolts and Washers Left: Knee [employer] 01/09/2024 [id number] / / [id number] Stent Dbl Pigtl 4.5x24 [id number] - [id number] Implanted:Qty: 1 on 06/23/2023 by Tc Lewis MD at [facility] Urinary [employer] 02/22/2026 [id number] / / [id number] Insurance [employer] [facility] Advance Directives * Full Code (Latest Code Status on File) Date Activated Date Inactivated Comments 06/22/2023 7:22 PM 06/25/2023 3:51 PM Care Teams Coal Crusher Operator Relationship Specialty Start Date End Date Kyra Bolton [address] [facility] [address] [place] [id number] PCP - General Internal Medicine 07/01/23
--- OUTSIDE RECORDS SUMMARY | 2025-02-03 12:36 | XMS_ITS | Clinical Summary ---
Author Organization [facility] Address [address] [place] [address] Care Team Providers Care Health Information Internship Name Role Phone Kyra Bolton MD Primary Care Provide r Allergies Active Allergy Reactions Criticality Noted Date Comments Banana Anaphylaxis High 10/15/2022 Cefaclor Rash Low 08/23/2020 Ciclopirox Hives Medium 12/14/2020 Melon Anaphylaxis High 10/15/2022 Penicillins Hives Medium 12/14/2020 Prochlorperazine Anxiety,Rash Low 06/22/2023 Teeth clenching [place] Anaphylaxis High 10/15/2022 Sumatriptan Unknown - Low [...] a Day. 180 tablet 3 025 Active NON FORMULARY Take by mouth Daily. Kratom Mitragynine PO Active Ventolin HFA 108 (90 Base) MCG/ACT inhalerIndication s:Wheezing INHALE 2 PUFFS BY MOUTH EVERY 4 HOURS NEEDED FOR WHEEZING 90 g 025 Active escitalopram (LEXAPRO) 20 MG tabletIndications :Anxiety and depression TAKE 1 TABLET BY MOUTH DAILY 30 tablet 2 025 Active traZODone (DESYREL) 100 MG tabletIndications :Sleep difficulties TAKE 1 TABLET BY MOUTH EVERY NIGHT 30 tablet 025 Active traZODone (DESYREL) 100 MG tabletIndications :Sleep difficulties TAKE 1 TABLET BY MOUTH EVERY NIGHT 30 tablet 025 2024 Discontinued Active Problems Problem Noted Date Diagnosed Date Left lower quadrant abdominal pain 07/18/2024 Encounter for screening colonoscopy 07/18/2024 Nausea and vomiting 12/24/2023 Eosinophilic esophagitis 12/24/2023 Epigastric abdominal pain 12/24/2023 History of esophageal stricture 10/08/2021 Encounters Date Type Department Care Team Description 01/10/2025 Refill [facility] PRIMARY CARE [address] [place] [address] Kyra Bolton MD Sleep difficulties 12/08/2024 Telephone [facility] GASTROENTEROLOGY [address] [place] [address] David Olivarez MD MEDICAL RECORDS 12/05/2024 Refill [facility] PRIMARY CARE [address] [place] [address] Kyra Bolton MD Sleep difficulties from Last 3 Months Immunizations Immunization Administration [...] 07/18/2024 12:49 PM EDT Plan of Treatment Health Maintenance Due Date Last Done Comments Pneumococcal Vaccine 0-49 (1 of 2 - PCV) 2001 ANNUAL PHYSICAL 06/04/2021 INFLUENZA VACCINE 09/09/2024 11/05/2022 LIPID PANEL 12/21/2024 12/22/2023, 11/05/2022 TDAP/TD VACCINES (2 - Td or Tdap) 02/09/2027 018 HEPATITIS C SCREENING Completed 11/05/2022 Medical Devices Implanted Type Area Molded Candles Wicker Device Identifier Shelf Expiration Date Model / Serial / Lot L Knee Implant Implant Dev Clip Endo [id number] Contrl Rot 235cm - [id number] Implanted:Qty : 3 on 07/21/2024 by David Olivarez MD at [facility] Implant N/A: Colon N[employer] [id number] 04/22/2027 [id number] / / [id number] Procedures Procedure Name Priority Date/Time Associated Diagnosis Comments LIPID PANEL WITH LDL/HDL RATIO Routine 12/22/2023 8:53 AM EST Prediabetes Mixed hyperlipidemia HEPATITIS C ANTIBODY Routine 11/05/2022 2:31 PM EDT Healthcare maintenance from Last 3 Months or Most Recently Relevant to Health Maintenance Results * (ABNORMAL) Lipid Panel With LDL / [...] 12/22/2023 8:53 AM EST 12/22/2023 Narrative [facility] ([facility]) - 12/23/2023 3:08 AM EST Performed at: [address] [place] [id number] Surveillance Analyst: Vasu Short MD, Phone: [phone] Patient Fasting: Y Kyra Bolton MD LAB BLOOD ORDERABLES Final Result Performing Organization Address City/State/[facility] Co de Phone Number [facility] ([facility]BULAT[facility]) [address] [place] [address], [facility] [address] [place] [address], [place] [phone] * Hepatitis C antibody (11/05/2022 2:31 PM EDT) [facility] Hep C Virus Ab Non Reactive Non Reactive [facility] Comment: HCV antibody alone does not differentiate between previously resolved infection and active infection. Equivocal and Reactive HCV antibody results should be followed up with an HCV RNA test to support the diagnosis of active HCV infection. Blood 11/05/2022 2:31 PM EDT 11/05/2022 Narrative [facility] ([facility]) - 11/06/2022 7:10 AM EDT Performed at: [address] [place] [address] [id number] Surveillance Analyst: Jefe Soria PhD, Phone: [phone] Patient Fasting: Y Kyra Bolton MD LAB BLOOD ORDERABLES Final Result [facility] ([facility]) [address] [place] [address], [place] [phone] [facility] [address] [place] [address], from Last 3 Months or Most Recently Relevant to Health Maintenance Insurance Care Teams Health Information Internship Relationship Specialty Start Date End Date Kyra Bolton MD [address] [facility] [address] [place] [address] PCP - General Internal Medicine & Pediatrics 11/05/22
--- OUTSIDE RECORDS SUMMARY | 2025-02-03 12:36 | XMS_ITS | Encounter Summary ---
[facility] Organization [facility] Address [address] [place] [address] Care Team Providers Care Cafeteria Cashier Name Role Phone Kyra Bolton MD Primary Care Provide r Reason for Visit * Reason Comments Med Refill Encounter Details Date Type Department Care Team (Late st Contact Info) Description 02/04/2024 Refill [facility] PRIMARY CARE [address] [place] [address] Kyra Bolton MD [address] [address] [place] [address] Wheezing; Tobacco use Social History Tobacco [...] use documented in this encounter Care Teams Cafeteria Cashier Relationship Specialty Start Date End Date Kyra Bolton MD [address] [facility] [address] [place] [address] PCP - General Internal Medicine & Pediatrics 11/05/22 documented as of this encounter
--- OUTSIDE RECORDS SUMMARY | 2025-02-03 12:36 | XMS_ITS | Encounter Summary ---
Author Organization [facility] Address [address] [place] [address] Care Team Providers Care Shot Lighter Name Role Phone Kyra Bolton MD Primary Care Provide r Reason for Visit * Reason Comments Med Refill Encounter Details Date Type Department Care Team (Late st Contact Info) Description 01/10/2025 Refill [facility] PRIMARY CARE [address] [place] [address] Kyra Bolton MD [address] [facility] [address] [place] [address] Sleep difficulties Social History Tobacco Use [...] Telephone Encounter - Martha James MA - 01/12/2025 8:18 AM EST Rx Refill Note Requested Prescriptions Pending Prescriptions Disp Refills traZODone (DESYREL) 100 MG tablet [Pharmacy Med Name: TRAZODONE 100MG TABLETS] 30 tablet 0 Sig: TAKE 1 TABLET BY MOUTH EVERY NIGHT Last office visit with prescribing clinician: 06/21/2024 Last telemedicine visit with prescribing clinician: Visit date not found Next office visit with prescribing clinician: Visit date not found Would you like a call back once the refill request has been completed: [] Yes [] No If the office needs to give you a call back, can they leave a voicemail: [] Yes [] No Martha James MA 01/12/25, 08:18 EST documented in this encounter Plan of Treatment Not on file documented as of this encounter Visit Diagnoses Diagnosis Sleep difficulties documented in this encounter Care Teams Shot Lighter Relationship Specialty Start Date End Date Kyra Bolton MD [address] [facility] [address] [place] [address] PCP - General Internal Medicine & Pediatrics 11/05/22 documented as of this encounter
--- OUTSIDE RECORDS SUMMARY | 2025-02-03 12:36 | XMS_ITS | Encounter Summary ---
Author Organization [facility] Address [address] [place] [address] Care Team Providers Care Furnace Filler Name Role Phone Kyra Bolton MD Primary Care Provide r Reason for Visit * Reason Comments Med Refill Encounter Details Date Type Department Care Team (Late st Contact Info) Description 12/05/2024 Refill [facility] PRIMARY [facility]ARE [address] [place] [address] Kyra Bolton MD [address] [place] [address] Sleep difficulties Social History Tobacco Use [...] Telephone Encounter - Martha James MA - 12/05/2024 2:11 PM EDT Rx Refill Note Requested Prescriptions [...] [] Yes [] No Martha James MA 12/05/24, 14:10 EDT documented in this encounter Plan of Treatment Not on file documented as of this encounter Visit Diagnoses Diagnosis Sleep difficulties documented in this encounter Care Teams Furnace Filler Relationship Specialty Start Date End Date Kyra Bolton MD [address] [facility] [address] [place] [address] PCP - General Internal Medicine & Pediatrics 11/05/22 documented as of this encounter
--- OUTSIDE RECORDS SUMMARY | 2025-02-03 12:36 | XMS_ITS | Encounter Summary ---
Author Organization [facility] Address [address] [place] [id number] Care Team Providers Care Leg Breaker Name Role Phone Kyra Bolton MD Primary Care Provide r Reason for Visit * Reason Onset Date Comments MEDICAL RECORDS 12/08/2024 Encounter Details Date Type Department Care Team (Late st Contact Info) Description 12/08/2024 Telephone [facility] GASTROENTEROLOGY [address] [facility] [address] [place] [address] David Olivarez MD [address] [facility] [address] [place] [address] MEDICAL RECORDS Social History Tobacco Use Types Packs/Day Years [...] encounter Miscellaneous Notes * Telephone Encounter - Hina Blankenship RegSched Rep - 12/08/2024 2:18 PM EDT Caller: Josias Perea Relationship to Patient: Self Reason for Call: [facility] CALLED TO REQUEST FOR THE PTS MOST RECENT CHART NOTES BE FAXED TO THEM AT [phone]. documented in this encounter Plan of Treatment Not on file documented as of this encounter Visit Diagnoses Not on filedocumented in this encounter Care Teams Leg Breaker Relationship Specialty Start Date End Date Kyra Bolton MD [address] [facility] [address] [place] [address] PCP - General Internal Medicine & Pediatrics 11/05/22 documented as of this encounter
[2025-02-03 13:12] VITALS: BP 134/69; RESP 12
[2025-02-03 13:27] VITALS: BP 132/70; RESP 13
[2025-02-03 13:44] LABS: Microscopic, Urine URINE MICROSCOPIC (MICROSCOPIC)
[2025-02-03 13:47] LABS: Bilirubin,Urine Negative (Negative); Color,Urine YELLOW (Yellow); Glucose,Urine (UA) Negative (Negative); Ketones,Urine Negative (Negative); Leukocyte Esterase,Urine Negative (Negative); PH,Urine 8.5 (5.0-8.5); Protein,Urine TRACE (Negative); Specific Gravity, Urine 1.020 (1.005-1.030); Urobilinogen,Urine 0.2 EU/dl (0.2)
[2025-02-03 13:58] LABS: Bacteria,Urine Trace /lpf; RBC,Urine Occasional #/hpf (0-3); Squamous Epithelial Cell,Urine Occasional #/hpf (0-5)
[2025-02-03 13:59] LABS: Amphetamine/Metha Screen,Urine Negative ng/ml (<1000)
[2025-02-03 14:00] LABS: Barbiturates Screen,Urine Negative ng/ml (<200)
[2025-02-03 14:01] LABS: Benzodiazepines Screen,Urine Negative ng/ml (<200)
[2025-02-03 14:03] LABS: Methadone Screen,Urine Negative ng/ml (<300); Opiate Screen,Urine Negative ng/ml (<300)
[2025-02-03 14:04] LABS: Phencyclidine Screen,Urine Negative ng/ml (<25)
[2025-02-03 14:17] VITALS: BP 132/70; PULSE 56; RESP 18; TEMP 36.7; O2SAT 100
== END 2025-02-03 14:29 | disposition home or self-care (01) ==
PROVIDERS: Nurse Practitioner Family; Emergency Provider Student in an Organized Health Care Education/Training Program; PCP Family Medicine
DX: R11.16 Cannabis hyperemesis syndrome (principal); R10.9 Unspecified abdominal pain; F12.188 Cannabis abuse with other cannabis-induced disorder; F17.210 Nicotine dependence, cigarettes, uncomplicated
CPT/HCPCS: 80053; 80307; 81001; 83690; 83735; 85025; 93005; 96361; 96374; 96375; 99284; 99285; J1200; J1790; J7030